=== PATIENT | male | born 1950 | race Caucasian/White ===

== ENCOUNTER → 2018-01-02 12:57 | Outpatient (CLI) | payer MEDICARE, SELFPAY ==
[2018-01-02 14:10] LABS: Prostate Specific Ag Screen 4.7 ng/mL (0.0-4.0)
== END ==
PROVIDERS: Visit Provider Urology
DX: Z12.5 Encounter for screening for malignant neoplasm of prostate (principal); R97.20 Elevated prostate specific antigen [PSA]
CPT/HCPCS: 36415; G0103

== ENCOUNTER → 2018-03-29 20:06 | Outpatient (CLI) | payer MEDICARE, MEDICAID, SELFPAY | PROVIDERS: PCP Nurse Practitioner Family; Visit Provider Specialist | DX: G47.30 Sleep apnea, unspecified (principal); I10 Essential (primary) hypertension; R40.0 Somnolence | CPT/HCPCS: 95810 ==

== ENCOUNTER → 2021-03-24 16:48 | Outpatient (CLI) | payer MEDICARE, MEDICAID, SELFPAY ==
[2021-03-24 17:51] LABS: Basophils # 0.1 K/mm3 (0-0.2); Basophils % 1.2 % (0.1-2.0); Eosinophils # 0.4 K/mm3 (0.0-0.4); Hematocrit 48.3 % (42.0-52.0); Hemoglobin 15.7 g/dL (14.1-18.0); Lymphocytes # 2.2 K/mm3 (0.7-4.5); Lymphocytes % 33.8 % (10-50); Mean Corpuscular HGB Conc 32.5 g/dL (31.8-35.4); Mean Corpuscular Hemoglobin 30.3 pg (27.0-31.2); Mean Corpuscular Volume 93.3 fl (80-94); Mean Platelet Volume 7.8 fl (7.4-10.4); Monocytes # 0.6 K/mm3 (0.1-1.0); Neutrophils # 3.2 K/mm3 (1.8-7.8); Platelet Count 351 K/mm3 (142-424); Red Blood Count 5.17 M/mm3 (4.60-6.20); Red Cell Distribution Width 13.2 % (11.5-17.5); White Blood Count 6.4 K/mm3 (4.8-10.8)
[2021-03-24 18:34] LABS: Alanine Aminotransferase 27 U/L (12-78); Albumin Level 4.4 g/dl (3.5-5.0); Albumin/Globulin Ratio 1.6 (1.1-1.8); Alkaline Phosphatase 68 U/L (38-126); Anion Gap 13.2 mEq/L (5-15); Aspartate Amino Transferase 32 U/L (17-59); Bilirubin,Total 0.6 mg/dl (0.2-1.3); Blood Urea Nitrogen 12 mg/dl (9-20); Calcium 9.6 mg/dl (8.4-10.2); Carbon Dioxide 29 mmol/L (22.0-30.0); Chloride 101 mmol/L (98-107); Chol/HDL Ratio 4.9 (1-3.5); Cholesterol 271 mg/dl (140-200); Estimated Glomerular Filt Rate 111 ml/min (>60); GFR (African American) 135 ML/MIN (>60); Globulin 2.7 g/dL (1.3-3.2); Glucose 94 mg/dl (74-100); HDL Cholesterol 55 mg/dl (40-60); Potassium 4.2 mmoL/L (3.5-5.1); Sodium 139 mmol/L (136-145); Total Protein,Serum 7.1 g/dl (6.3-8.2); Triglycerides 135 mg/dl (30-150); VLDL Cholesterol 27 mg/dL (0-40)
[2021-03-24 18:45] LABS: Direct LDL Cholesterol 189.83 mg/dL (100-129)
[2021-03-24 19:04] LABS: Prostate Specific Ag Screen 4.8 ng/ml (0.0-4.0); Thyroid Stimulating Hormone 0.85 uIU/mL (0.465-4.68)
== END ==
PROVIDERS: Visit Provider Nurse Practitioner Family
DX: I25.10 Atherosclerotic heart disease of native coronary artery without angina pectoris (principal); I10 Essential (primary) hypertension; E03.9 Hypothyroidism, unspecified; N40.0 Benign prostatic hyperplasia without lower urinary tract symptoms; Z12.5 Encounter for screening for malignant neoplasm of prostate
CPT/HCPCS: 80053; 80061; 84443; 85025; G0103

== ENCOUNTER 2022-05-04 10:25 | Day surgery (SDC) | payer MEDICARE, MEDICAID, SELFPAY ==
[2022-04-15 10:52] VITALS: BMI 21.7
[2022-05-04] VITALS (7 sets, daily range): BP systolic 91–145; BP diastolic 57–88; PULSE 56–80; RESP 16–18; TEMP 36.2–36.3; O2SAT 93–99
--- NOTE | 2022-05-04 12:17 | P.PN_ITS ---
[facility] Disclaimer: The information contained in this section may have been updated after the patient was seen, as this information can be updated by other users. Medical History Family history of coronary artery bypass graft surgery Hypothyroid Sleep apnea Surgical History Hx of tympanostomy Family History Other No significant family history Social History Smoking Status: Former smoker alcohol intake: never substance use type: denies use current occupational status: retired Travel in the last 8 weeks: None adopted: Yes foster care: No household members: none housing: house lives independently: Yes marital status: single education level: high school caffeine: Yes special vel needs: No agree to transfusion: No do you feel safe at home: Yes victim of physical abuse: No victim of emotional abuse: No victim of sexual abuse: No would you like helpful sources: No [facility] Anesthesia Checklist Patient Identification Patient Identification: Arm Band and Verbal (Name & ) Structural Data Admitted From: Home Planned Operative Procedure/s: EGD/Colonoscopy Consent for Planned Operative Procedure(s) Verified: Yes NPO Status Verified Time NPO: 00:00 Airway Assessment C-Spine Mobility Assessed: Yes TMJ Mobility Assessed: Yes Dentition: Edentulous Neurological Assessment Level of Consciousness: Awake Hx Seizures: No Numbness or tingling in extremities: No Anesthesia Plan Anesthesia Risk discussed: Yes Anesthesia Plan: Verified ASA Class: III Anesthesia Type: MAC
--- NOTE | 2022-05-04 12:47 | P.PCN_ITS ---
Procedure: Date: 05/04/22 Patient Date of :: 1950 Procedure Performed:: Colonoscopy Indications:: Screening colonoscopy. The patient also reports having had intermittent LLQ abdominal pain and burning sensations Performing Provider:: Filemon Harper MD Referring Provider:: Minda Cuellar APRN Sedation:: See RN notes Procedure:: After placing the patient in the left lateral decubitus position, the colon oscopy was gently inserted into the rectum and under direct visualization advanced to the cecum which was identified by transillumination in the right lower quadrant, identification of the ileocecal valve, appendiceal orifice, and cecal strap. Color, texture, mucosa, and anatomy of the colon were carefully examined with the scope. Findings:: Anal canal: normal Rectum: Internal hemorrhoids Sigmoid colon: normal without polyps or inflammatory changes Descending colon: normal without polyps or inflammatory changes Splenic flexure: normal Transverse colon: normal without polyps or inflammatory changes Hepatic flexure: normal Ascending colon: normal without polyps or inflammatory changes Cecum: normal Terminal ileum: not visualized Recommendations:: Repeat colonoscopy in 10 years or sooner if clinically indicated Complications:: none Estimated blood obtained (mL): 0
--- NOTE | 2022-05-04 12:49 | HMH.SCOPE ---
Procedure: Date: 05/04/22 Patient Date of :: 1950 Procedure Performed:: EGD Indications:: Abdominal pain Performing Provider:: Filemon Harper MD Referring Provider:: Minda Cuellar APRN Sedation:: See RN notes Procedure:: The gastroscope was gently passed through the incisoral orifice into the oral cavity and under direct visualization the esophagus was intubated. The endoscope was passed down the esophagus, through the stomach, and into the duodenum. Color, texture, mucosa, and anatomy of the esophagus, stomach, and duodenum were carefully examined with the scope. Findings:: Oropharynx: normal Esophagus: Wide tongue of salmon colored mucosa distal esophagus 1.5 cm in size. Biopsies obtained EG Junction: intact at 40 cm Cardia: Small hiatal hernia Fundus: normal Body: Gastritis. Biopsies obtained Antrum: Gastritis. 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
== END 2022-05-04 13:50 | disposition home or self-care (01) ==
PROVIDERS: PCP Nurse Practitioner Family; Visit Provider Internal Medicine
PROC: 0DJ08ZZ Inspection of Upper Intestinal Tract, Via Natural or Artificial Opening Endoscopic (ICD-10-PCS; CPT 43235; principal; 2022-05-04 11:30)
DX: R10.11 Right upper quadrant pain (principal); K29.70 Gastritis, unspecified, without bleeding; K44.9 Diaphragmatic hernia without obstruction or gangrene; Z79.899 Other long term (current) drug therapy
CPT/HCPCS: 43239; 45378; 88305; 88342; J2704

== ENCOUNTER → 2022-05-23 10:12 | Outpatient (CLI) | payer MEDICARE, MEDICAID, SELFPAY ==
--- NOTE | 2022-05-23 10:18 | CT_ITS ---
PROCEDURE INFORMATION: Exam: CT Abdomen And Pelvis Without Contrast Exam date and time: 05/23/2022 10:19 AM Age: 71 years old Clinical indication: Other: Hematuria; Additional info: Hematuria- groin pain- diagnosed as hernia TECHNIQUE: Imaging protocol: Computed tomography of the abdomen and pelvis without contrast. Radiation optimization: All CT scans at this facility use at least one of these dose optimization techniques: automated exposure control; mA and/or kV adjustment per patient size (includes targeted exams where dose is matched to clinical indication); or iterative reconstruction. COMPARISON: No relevant prior studies available. FINDINGS: Lungs: Punctate granuloma noted in right lower lobe. Liver: Subcentimeter hypodensity in the liver dome is incompletely evaluated. Gallbladder and bile ducts: No biliary ductal dilation. Gallbladder normal Pancreas: No peripancreatic fluid stranding. No main pancreatic ductal dilation. Spleen: No splenomegaly. Adrenal glands: The adrenal glands are normal. Kidneys and ureters: There are multiple renal calculi conforming the renal pelvis morphology. There is moderate right hydroureteronephrosis proximal to an 8 x 15 x 9 mm (AP x TRV x SI) calculus in the renal pelvis. there is a 1.5 cm right renal cyst Stomach and bowel: Scattered colonic diverticula without acute inflammatory change. Appendix: A normal appendix is identified. Intraperitoneal space: There is no evidence of free intraperitoneal or pelvic fluid. There is no evidence of free intraperitoneal or pelvic fluid. Vasculature: The aorta demonstrates mild atherosclerotic calcification. Aorta is nonaneurysmal. Lymph nodes: No evidence of retroperitoneal or mesenteric lymphadenopathy. Urinary bladder: Urinary bladder is unremarkable. Reproductive: Prostatomegaly noted Bones/joints: no acute osseous abnormality Soft tissues: Unremarkable. IMPRESSION: 1. There is moderate right hydroureteronephrosis proximal to an 8 x 15 x 9 mm (AP x TRV x SI) calculus in the renal pelvis. 2. There are multiple bilateral renal calculi conforming the renal pelvis morphology. COMMENTS: Consistent with the [employer]'s Incidental Findings Committee white paper (J Am Harrison Radiol 2018): Any incidental renal lesion less than 1 cm or classified as too small to characterize, or any incidental cystic renal lesion characterized as simple-appearing, is likely benign. No follow-up imaging is recommended for these lesions per consensus recommendations based on imaging criteria.
== END ==
PROVIDERS: PCP Nurse Practitioner Family; Visit Provider Registered Nurse
DX: R31.29 Other microscopic hematuria (principal)
CPT/HCPCS: 74176

== ENCOUNTER → 2022-09-12 07:15 | Outpatient (CLI) | payer MEDICARE, MEDICAID, SELFPAY ==
--- NOTE | 2022-09-12 07:15 | US_ITS ---
FINAL REPORT CLINICAL HISTORY: RUQ pain FINDINGS: Ultrasound images of the right upper quadrant were obtained. The pancreas is obscured. The liver parenchyma is normal in echogenicity. The gallbladder is well visualized and the wall appears normal. There are no gallstones. The common duct is normal. Limited images of the right kidney demonstrate a right renal cyst measuring up to 1.7 cm in the superior pole. IMPRESSION: Right renal cyst. Reviewed, Interpreted and Dictated by Carlos Velasco III, MD Transcribed by Nestor Fisher Authenticated and [facility]
== END ==
PROVIDERS: PCP Nurse Practitioner Family; Visit Provider Surgery
DX: R10.11 Right upper quadrant pain (principal)
CPT/HCPCS: 76705

== ENCOUNTER → 2022-10-21 06:16 | Outpatient (CLI) | payer MEDICARE, MEDICAID, SELFPAY ==
--- NOTE | 2022-10-21 06:16 | CA_ITS ---
APPROVED REPORT Exam: Pharmacologic Technologist: Cleo Sanchez, Ht: 5 ft 8 in Wt: 142 lbs BSA: 1.77 m2 Rhythm: NSR, RBBB Medical History Medications: Amlodipine,,,,, Levothyroxine,,,,, Aspirin,,,,, TAMSULOSIN,,,,, Vit B12,,,,, Losartan-Hydrochlorothiazide,,,,, Stress Test Details Test: LEXISCAN HR Resting HR: 64 bpm Max Heart Rate (APMHR): 149 bpm Max HR Achieved: 100 bpm Target HR (85% APMHR): 127 bpm % of APMHR: 67 BP Resting BP: 141/76 mmHg Max BP: 152/80 mmHg ECG Resting ECG: NSR, RBBB Stress ECG: No change Recovery ECG: No change Clinical Exercise duration: 04:08 min Highest Stage Achieved: Exercise capacity: n/a METs Stress ECG Conclusion NON DIAGNOSTIC ECG STRESS TEST DUE TO BASELINE ABNORMALITIES IN THE SETTING OF RBBB Test Summary REST . . . . . . . Resting REST 23:50 . . 64 . 141/ 76 . . Stage 1 01:00 . . 86 . . . . Stage 2 01:00 . . 100 . 125/ 65 . . Stage 3 01:00 . . 91 . 132/ 67 . . Stage 4 01:00 . . 90 . 134/ 68 . . Stage 4 01:08 . . 91 . 134/ 68 . Stop exercise at 04:08 RECOVERY 01:00 . . 93 . . . . RECOVERY 02:00 . . 96 . 142/ 77 . . RECOVERY 03:00 . . 92 . 147/ 78 . . RECOVERY 03:50 . . 84 . 152/ 80 . . Electronically signed by : Fernanda Quiros, 10/24/2022 01:24:02
--- NOTE | 2022-10-21 06:16 | NM_ITS ---
APPROVED REPORT Exam: Nuclear Stress Test Indication: fatigue..pre-op..hyperyension Patient Location: Outpatient Stress Tech: Cleo Price [place] Tech:Divya Lopez TAMARSandra RT(R)(N) Ht: 5 ft 8 in Wt: 139 lbs HR: 64 bpm BP: 141/76 mmHg BSA: 1.75 m2 TID: 1.11 BMI: 21.1 History: fatigue..pre-op..hypertension Procedure: Patient received 0.0 mg of intravenous Lexiscan, resting heart rate 64 bpm, resting blood pressure 171/76 mmHg, with Lexiscan maximum heart rate achieved was 100 bpm which is 85 % of the maximum predicted heart rate and blood pressure was 152/80 mmHg. With Lexiscan, patient denied any complaint of chest pain. Cardiac Stress and Resting SPECT Images: Cardiac Stress and Resting SPECT images were obtained using technetium 99m Myoview 30.5 mCi stress and 10.07 mCi at rest. Resting and stress imaging in supine position demonstrate a medium-sized, moderate, partially reversible perfusion defect in the mid to distal anterior and anteroapical LV wall. There is also a medium-sized, moderate, fixed defect in the inferior wall. With prone imaging, the anterior and anteroapical perfusion defects are still present, but the inferior perfusion defect is no longer visualized. Gated imaging demonstrate a mildly reduced global LV systolic function. There is moderate hypokinesis of the mid to distal anterior LV wall. LVEF is calculated at 49%. Conclusion: Diaphragmatic attenuation is present. Partially reversible perfusion defect in the mid to distal anterior and anteroapical LV wall, consistent with a prior infarct with a region of reversible ischemia. Gated imaging demonstrate a mildly reduced global LV systolic function. There is moderate hypokinesis of the mid to distal anterior LV wall. LVEF is calculated at 49%. Electronically signed by : Fernanda Quiros, 10/21/2022 18:46:25
== END ==
PROVIDERS: PCP Nurse Practitioner Family; Visit Provider Nurse Practitioner
DX: E78.5 Hyperlipidemia, unspecified (principal); I11.9 Hypertensive heart disease without heart failure; I25.10 Atherosclerotic heart disease of native coronary artery without angina pectoris; R94.31 Abnormal electrocardiogram [ECG] [EKG]; Z01.810 Encounter for preprocedural cardiovascular examination; Z95.1 Presence of aortocoronary bypass graft; I42.8 Other cardiomyopathies
CPT/HCPCS: 78452; 93017; 93306; A9502; J2785

== ENCOUNTER 2022-11-14 07:54 | Day surgery (SDC) | payer MEDICARE, MEDICAID, SELFPAY ==
[2022-11-14] VITALS (21 sets, daily range): BP systolic 110–149; BP diastolic 60–86; PULSE 58–89; RESP 14–18; TEMP 36.2–36.9; O2SAT 92–98; BMI 21.9
--- NOTE | 2022-11-14 07:21 | IR_ITS ---
APPROVED REPORT Patient Location: Outpatient PROCEDURES Left heart catheterization Left ventriculogram Selective coronary angiogram Selective engage the left internal mammary artery with angiography INDICATION Coronary artery disease, History of coronary bypass surgery, Abnormal stress test, Preoperative evaluation Informed consent was obtained prior to the procedure. COMPLICATIONS None Estimated Blood Loss: Less than 10 mls TECHNIQUE One percent lidocaine used to anesthetize the right groin. The right femoral artery was accessed via the Seldinger technique and a 5 Korean sheath was placed in the right femoral artery. A JL 4, JR4 catheter were used to perform left heart catheterization, left ventriculogram selective coronary angiography as well as selective engagement of the left internal mammary artery. At the end of the procedure the patient was transferred to the postop holding area in stable condition for sheath removal. ANGIOGRAPHIC RESULTS The left main artery Has a mid vessel 10 to 20% stenosis The left anterior descending artery Proximally occluded The circumflex artery Nondominant with a proximal 50 to 60% stenosis and a blood vessel no larger than 2 mm in diameter The right coronary artery Large dominant with proximal and mid vessel diffuse 50% stenoses with distal 30% stenoses The COOPER ventriculogram reveals Preserved 60% The left ventricular end-diastolic pressure 10 mmHg Widely patent LAMAR to LAD IMPRESSION Moderate coronary artery disease as described above accompanied by preserved ejection fraction with normal LVEDP and widely patent LMAAR graft to widely patent LAD PLAN 1. Patient is alone acceptable risk to proceed with elective herniorrhaphy 2. LDL less than 55 to be achieved with high intensity statin 3. Aggressive risk factor modification 4. Daily aspirin Electronically signed by : Wellington Correia MD 11/14/2022 09:37:21
[2022-11-14 08:42] LABS: Basophils # 0.1 K/mm3 (0-0.2); Basophils % 0.9 % (0.1-2.0); Eosinophils # 0.5 K/mm3 (0.0-0.4); Eosinophils % 7.3 % (0.1-12.0); Hematocrit 48.5 % (42.0-52.0); Hemoglobin 15.4 g/dL (14.1-18.0); Lymphocytes # 2.1 K/mm3 (0.7-4.5); Lymphocytes % 28.3 % (10-50); Mean Corpuscular HGB Conc 31.7 g/dL (31.8-35.4); Mean Corpuscular Hemoglobin 29.2 pg (27.0-31.2); Mean Corpuscular Volume 92.3 fl (80-94); Mean Platelet Volume 7.4 fl (7.4-10.4); Monocytes # 0.6 K/mm3 (0.1-1.0); Monocytes % 8.2 % (1.7-9.3); Neutrophils # 4.1 K/mm3 (1.8-7.8); Neutrophils % 55.3 % (37.0-80.0); Platelet Count 272 K/mm3 (142-424); Red Blood Count 5.25 M/mm3 (4.60-6.20); Red Cell Distribution Width 13.7 % (11.5-17.5); White Blood Count 7.4 K/mm3 (4.8-10.8)
[2022-11-14 08:48] LABS: Chloride 100 mmol/L (98-107); Sodium 140 mmol/L (136-145)
[2022-11-14 08:49] LABS: Potassium 3.7 mmoL/L (3.5-5.1)
[2022-11-14 08:51] LABS: Blood Urea Nitrogen 13 mg/dl (9-20); Creatinine Clearance Estimated 62 mL/min (50-200); Estimated Glomerular Filt Rate 95 ml/min (>60); GFR (African American) 115 ML/MIN (>60)
[2022-11-14 08:52] LABS: Anion Gap 12.7 mEq/L (5-15); Calcium 9.4 mg/dl (8.4-10.2); Carbon Dioxide 31 mmol/L (22.0-30.0); Glucose 96 mg/dl (74-100)
--- NOTE | 2022-11-14 14:30 | SUR.PHASEII ---
[id number]- received report from Elias Clark RN about patient and procedure. Was informed that the patient was brought to the hospital via [employer]. There was no family member or friend with the patient to ride back with him or sign him out. Received report that the transportation bus would sign them out. 1300-Provided patient with discharge information at this time. Patient was wheeled out to transportation vehicle by this RN and asked the public transit trolley driver to sign him out. Assistant [employer] Track Coach said they could not legally sign him out because they were not responsible for the patient once they got home. home performance laborer was then informed of this and they said to get two nurse signatures on the discharge instructions and the patient could leave. Tessie Mcmillan RN was then informed of the situation. Dorothea Darling was informed as well and suggested to admit the patient for observation. The patient was informed of this option and refused to be admitted. He stated that he needed to get home to his animals and could not stay here. Patient stated that he had no family close to him to come get him and take him home. The patient then phoned a neighbor who agreed to come check on him multiple times for the rest of the day. This RN then spoke with the neighbor, Panchito, who voiced that he would check on the patient multiple times for the rest of the day and help with his animals. A decision was made with Tessie Mcmillan RN, Dorothea Darling, and this RN, that the patient could sign his own discharge instructions and also sign the AMA paper which stated that he was leaving the hospital with understanding of the procedure and responsibility of follow-up care. 0202- Discharge instructions were gone over once again with the patient to ensure that he had a good understanding of the instructions. He voiced his understanding. Patient was wheeled back out to the transportation vehicle and was released with the public transit trolley driver at this time.
== END 2022-11-14 13:49 | disposition home or self-care (01) ==
PROVIDERS: PCP Nurse Practitioner Family; Visit Provider Internal Medicine
DX: I25.10 Atherosclerotic heart disease of native coronary artery without angina pectoris (principal); E03.9 Hypothyroidism, unspecified; G47.30 Sleep apnea, unspecified
CPT/HCPCS: 80048; 85025; 93454; 99152; C1725; C1769; C1894; J1644; Q9967

== ENCOUNTER → 2023-02-14 11:26 | Outpatient (CLI) | payer MEDICARE, MEDICAID, SELFPAY ==
[2023-02-14 11:34] LABS: Microscopic, Urine URINE MICROSCOPIC (MICROSCOPIC)
[2023-02-14 11:54] LABS: Appearance,Urine CLEAR (Clear); Bilirubin,Urine Negative (Negative); Blood, Urine Negative (Negative); Color,Urine YELLOW (Yellow); Glucose,Urine (UA) Negative (Negative); Ketones,Urine Negative (Negative); Leukocyte Esterase,Urine Negative (Negative); Nitrate,Urine Negative (Negative); PH,Urine 8.5 (5.0-8.5); Protein,Urine Negative (Negative); Specific Gravity, Urine 1.015 (1.005-1.030); Urobilinogen,Urine 0.2 EU/dl (0.2)
[2023-02-14 12:02] LABS: Basophils # 0.1 K/mm3 (0-0.2); Basophils % 0.8 % (0.1-2.0); Eosinophils # 0.3 K/mm3 (0.0-0.4); Eosinophils % 4.3 % (0.1-12.0); Hematocrit 50.1 % (42.0-52.0); Hemoglobin 16.2 g/dL (14.1-18.0); Lymphocytes # 1.7 K/mm3 (0.7-4.5); Lymphocytes % 25.1 % (10-50); Mean Corpuscular HGB Conc 32.4 g/dL (31.8-35.4); Mean Corpuscular Hemoglobin 29.8 pg (27.0-31.2); Mean Corpuscular Volume 91.9 fl (80-94); Mean Platelet Volume 7.2 fl (7.4-10.4); Monocytes # 0.6 K/mm3 (0.1-1.0); Neutrophils % 60.8 % (37.0-80.0); Platelet Count 292 K/mm3 (142-424); Red Blood Count 5.45 M/mm3 (4.60-6.20); Red Cell Distribution Width 13.2 % (11.5-17.5); White Blood Count 6.7 K/mm3 (4.8-10.8)
[2023-02-14 12:13] LABS: Squamous Epithelial Cell,Urine Occasional #/hpf (0-5); WBC,Urine Occasional #/hpf (0-3)
[2023-02-14 13:54] LABS: Anion Gap 14.2 mEq/L (5-15); Blood Urea Nitrogen 14 mg/dl (9-20); Calcium 9.6 mg/dl (8.4-10.2); Carbon Dioxide 31 mmol/L (22.0-30.0); Chloride 99 mmol/L (98-107); Estimated Glomerular Filt Rate 95 ml/min (>60); GFR (African American) 115 ML/MIN (>60); Glucose 96 mg/dl (74-100); Potassium 4.2 mmoL/L (3.5-5.1); Sodium 140 mmol/L (136-145)
== END ==
PROVIDERS: PCP Nurse Practitioner Family; Visit Provider Surgery
DX: E78.5 Hyperlipidemia, unspecified (principal); K40.90 Unilateral inguinal hernia, without obstruction or gangrene, not specified as recurrent
CPT/HCPCS: 36415; 80048; 81001; 85025

== ENCOUNTER 2023-02-20 06:08 | Day surgery (SDC) | payer MEDICARE, MEDICAID, SELFPAY ==
[2023-02-16 13:01] VITALS: BMI 21.6
[2023-02-20] VITALS (14 sets, daily range): BP systolic 96–138; BP diastolic 57–85; PULSE 66–87; RESP 12–18; TEMP 36.2–43; O2SAT 92–98
--- NOTE | 2023-02-20 07:18 | EXP.ANES.CKL ---
[facility] Disclaimer: The information contained in this section may have been updated after the patient was seen, as this information can be updated by other users. Medical History Abnormal electrocardiogram [ECG] [EKG] Coronary artery disease Encounter for pre-operative cardiovascular clearance Family history of coronary artery bypass graft surgery Hypothyroid Migraine Osteoarthritis Sleep apnea Surgical History History of heart bypass surgery Hx of tympanostomy Family History Other No significant family history Social History (Updated 02/20/23 @ 06:45 by Love Reynolds RN) Smoking Status: Former smoker alcohol intake: never substance use type: denies use current occupational status: retired Travel in the last 8 weeks: None adopted: Yes foster care: No household members: none housing: house lives independently: Yes marital status: single education level: high school caffeine: Yes special vel needs: No agree to transfusion: No do you feel safe at home: Yes victim of physical abuse: No victim of emotional abuse: No victim of sexual abuse: No would you like helpful sources: No [facility] Anesthesia Checklist Patient Identification Patient Identification: Arm Band Structural Data Admitted From: Home Planned Operative Procedure/s: Bilateral Laparoscopic Inguinal Hernia Repair Consent for Planned Operative Procedure(s) Verified: Yes Verified Documents: Surgical Consent, History and Physical and Cardiac Clearance NPO Status Verified Time NPO: 00:00 Additional verifications Anesthesia Reactions: No Hx Blood Transfusions: No Blood Transfusion Reaction: No Airway Assessment Mallampati Score:: Class II C-Spine Mobility Assessed: Yes TMJ Mobility Assessed: Yes Dentition: Good Dentition Neurological Assessment Level of Consciousness: Awake and Alert Anesthesia Plan Anesthesia Risk discussed: Yes Anesthesia Plan: Verified ASA Class: III Anesthesia Type: General
--- NOTE | 2023-02-20 09:27 | EXP.OP.NOTE ---
Date of procedure: 02/20/23 Pre-op Diagnosis:: Bilateral inguinal hernias Post-op Diagnosis:: Same Procedure performed:: Laparoscopic bilateral inguinal hernia repair (TEPP) with placement of large sized Bard 3D max mesh bilaterally Surgeon:: Carlos Hernandez MD Anesthesia: EAMON Estimated blood loss (mL): 15 Clinical Note:: Patient presents for hernia repair. Patient is a 72-year-old male from [place] with history of hyperlipidemia, cardiomyopathy, coronary disease, hypertension, obstructive sleep apnea, previous coronary artery bypass grafting referred by Minda Cuellar for left inguinal hernia. Patient states that he has had a swelling in the left groin area since March. However, he had some issues with kidney stones for which she required what sounds like lithotripsy and stent. He has had to wear a hernia supporting belt. When he is not wearing this in the evening he has protrusion and burning pain. Interestingly, the patient also states that he has had epigastric pain occurring postprandially. This has persisted. He underwent EGD and colonoscopy with Dr. Harper. He underwent gallbladder ultrasound which was negative for gallstones. On examination he had a left inguinal hernia. Given his history I had him undergo cardiology risk assessment and evaluation. He ultimately did undergo cardiac catheterization and has been cleared for surgery. Patient states that about 18 days after his cardiac catheterization he had developed some burning in the right groin area which was similar to what he had in the left side. He did have some relatively extensive bruising initially from right femoral artery catheterization. Patient had wished to wait until February for hernia repair due to the fact that he often has significant seasonal allergies. He actually was noted to have bilateral inguinal hernias with the right side being smaller than the left. Given the bilateral nature plan was made for attempt at laparoscopic bilateral inguinal hernia repair with concentration on the left side. Operative findings:: He had a moderately large indirect left inguinal hernia with hernia sac as well as an additional significant cord lipoma. On the right side there was moderate direct hernia. Operative note:: Consent was obtained patient was taken to the operating room. He was given preoperative intravenous antibiotics. In the operating room he was placed in a supine position. General anesthesia was induced. Hunt catheter was placed. Abdomen and perineal area were prepped and draped in the standard surgical fashion. Subumbilical skin incision was made. Dissection was carried down to the anterior rectus fascia. Initially exposure of the rectus fascia was somewhat difficult. It was incised to the left of the linea alba. Rectus muscles were retracted laterally. Preperitoneal space was ultimately entered. Dissecting balloon trocar was inserted and it was inflated. Preperitoneal space was dissected free under laparoscopic visualization. Dissecting balloon trocar was then replaced with the structural balloon trocar and CO2 pneumo preperitoneum was achieved to 15 mmHg. A couple of 5 mm trocars were inserted in the midline inferior to the umbilicus. Dissection was carried out initially of the left inguinal area. Ralf's ligament and pubis were identified initially. The inferior epigastric vessels were identified as were the cord structures and iliac vessels. Dissection was carried out of the cord bluntly dissecting it free from surrounding structures. Appreciable hernia sac was identified. This was dissected free from the cord and returned to the peritoneal cavity. Further dissection was carried out noting significant preperitoneal fat herniation as a cord lipoma. This was dissected free and reduced as well. Dissection was carried out laterally in the preperitoneal space to allow for mesh placement. There were a few branching vessels from the muscle to the perit
--- NOTE | 2023-02-20 09:31 | EXP.ANES.I ---
[facility] Anesthesia Record Part I Anesthesia Record I Intake, IV Amount: 1,500 Hydration: Adequate Estimated blood loss (mL): 15 Urine output (mL): 900 Blood Pressure: 119/58 SaO2: 98 Pulse Rate: 86 Airway Patency: Patent Respiratory Rate: 14 Temperature: 97.3 F Patient is:: Drowsy and Oral/Nasal airway Stable to PACU at:: 09:25
--- NOTE | 2023-02-20 11:08 | P.PNANES_ITS ---
[facility] Anesthesia Record Part II Anesthesia Record Part II Discharge Time: 09:55 Destination: Surgical Day Care (OP Surgery) PACU nurse assessment reviewed?: Yes Patient Condition:: Good Anesthesia Complications:: None Swallowing reflex intact?: Yes Airway Patency: Patent Cyanosis?: No Blood Pressure: 104/58 SaO2: 95 Respiratory Rate: 14 Pulse Rate: 83 Temperature: 97.3 F Mental Status: Alert & Oriented Pain level:: 0 Nausea and/or vomitting:: None Intake, IV Amount: 0 Hydration: Adequate
[2023-02-20 15:21] LABS: Microscopic,Cath URINE MICROSCOPIC (MICROSCOPIC)
[2023-02-20 15:44] LABS: Appearance,Urine/Cath CLEAR (Clear); Bilirubin,Cath Negative (Negative); Blood, Urine/Cath 3+ (Negative); Color,Urine/Cath YELLOW (Yellow); Glucose,Urine/Cath (UA) Negative (Negative); Ketones,Urine/Cath Negative (Negative); Leukocyte Esterase,Cath Negative (Negative); Nitrate,Cath Negative (Negative); PH,Urine/Cath 8.5 (5.0-8.5); Protein,Urine/Cath Negative (Negative); Specific Gravity, Urine/Cath 1.015 (1.005-1.030); Urobilinogen,Cath 0.2 EU/dl (0.2)
[2023-02-20 16:08] LABS: RBC,Urine/Cath 20-50 # /hpf (0-3); WBC,Urine/Cath Occasional #/hpf (0-3)
== END 2023-02-20 10:55 | disposition home or self-care (01) ==
PROVIDERS: PCP Nurse Practitioner Family; Visit Provider Surgery
PROC: (CPT 49650; principal; 2023-02-20 07:30)
DX: K40.20 Bilateral inguinal hernia, without obstruction or gangrene, not specified as recurrent (principal)
CPT/HCPCS: 49650; 81001; 96374; C1781; J2405

== ENCOUNTER 2024-07-26 09:01 | Outpatient (CLI) | payer MEDICARE, MEDICAID, SELFPAY ==
[2024-07-26 09:55] LABS: Basophils % 0.6 % (0.1-2.0); Eosinophils # 0.2 K/mm3 (0.0-0.4); Eosinophils % 3.1 % (0.1-12.0); Hematocrit 42.8 % (42.0-52.0); Hemoglobin 14.6 g/dL (14.1-18.0); Lymphocytes % 29.8 % (10-50); Mean Corpuscular HGB Conc 34.1 g/dL (31.8-35.4); Mean Corpuscular Hemoglobin 29.7 pg (27.0-31.2); Mean Corpuscular Volume 87.2 fl (80-94); Monocytes # 0.7 K/mm3 (0.1-1.0); Neutrophils # 3.8 K/mm3 (1.8-7.8); Neutrophils % 56.2 % (37.0-80.0); Platelet Count 289 K/mm3 (142-424); Red Blood Count 4.91 M/mm3 (4.60-6.20); Red Cell Distribution Width 13.5 % (11.5-17.5); White Blood Count 6.7 K/mm3 (4.8-10.8)
--- NOTE | 2024-07-26 10:15 | PC.NURSE ---
Determined at pt's PAT appointment per Dariel Mobley and Dr. Hernandez that he would need cardiac clearance proir to procedure. Office notified and case placed on hold. Appt scheduled for clearance on 07/31 @ 0845. Pt notified and verbalized understanding. VM left for BJ in Dr. Hernandez's office notifying of POC.
[2024-07-26 10:55] LABS: Anion Gap 9.6 mEq/L (5-15); Blood Urea Nitrogen 17 mg/dl (9-20); Calcium 9.3 mg/dl (8.4-10.2); Carbon Dioxide 32 mmol/L (22.0-30.0); Chloride 100 mmol/L (98-107); Estimated Glomerular Filt Rate 95 ml/min (>60); GFR (African American) 115 ML/MIN (>60); Glucose 102 mg/dl (74-100); Potassium 3.6 mmoL/L (3.5-5.1); Sodium 138 mmol/L (136-145)
== END 2024-07-26 23:59 | disposition home or self-care (01) ==
LOC: PREOP 09:02
PROVIDERS: PCP Nurse Practitioner Family; Visit Provider Surgery
DX: L72.3 Sebaceous cyst (principal)
CPT/HCPCS: 80048; 85025

== ENCOUNTER 2024-08-09 09:29 | Outpatient (CLI) | payer MEDICARE, MEDICAID, SELFPAY ==
--- NOTE | 2024-08-09 09:38 | CA_ITS ---
APPROVED REPORT EXAM: Comprehensive 2D, Doppler, and color-flow Echocardiogram Gear Nicker: Essence Almodovar CRT Ht: 5 ft 8 in Wt: 156lbs BSA: 1.84 BP: 171/79 mmHg Indications: PRE-OP cyst removal of abdomen(apical imaging area) CAD,CABG, HTN, HLD,HF EF 55-60% 11/11 2D Dimensions LA Volume 36.10 mL LA Volume Index 19.20 mL/m2 (M/F) 16-34 M-Mode Dimensions RVDd 3.23 cm (0.9-2.6) LA Diam 3.69 cm (1.9-4.0) LVDd 4.60 cm (3.5-5.7) LVDs 3.16 cm (3.5-5.7) IVSd 1.63 cm (0.6-1.1) PWd 1.14 cm (0.6-1.1) EF (Teich) 59.20% FS 31.30% EDV (Teich) 97.30 mL TAPSE 1.29 (<1.7) ESV (Teich) 39.70 mL LV Diastology E Decel Time 240 (160-240 msec) E/A Ratio 0.82 MED A' 9.60 cm/s LAT A' 8.60 cm/s Aortic Valve AI PHT 695.00 ms AO Peak GR. 3.80 mmHg Mitral Valve MV A Velocity 76.0 (40-130 cm/s) E/A Ratio 0.82 Pulmonary Valve PV Peak Velocity 75.0 (50-150 cm/s) Tricuspid Valve TR P. Velocity 249.00 cm/s RAP Estimate 10.00 mmHg RVSP 34.80 mmHg Left Ventricle The left ventricle is normal size. The left ventricular systolic function is normal. The left ventricular ejection fraction is within the normal range. There is increased LV wall thickness. There is normal LV segmental wall motion. The left ventricular diastolic function is normal. LVEF is 60%. Right Ventricle The right ventricle is normal size. The right ventricular systolic function is normal. Atria The left atrium size is normal. The right atrium size is normal. There is no Doppler evidence of interatrial shunt. Aortic Valve Aortic valve is mildly thickened. Mild aortic regurgitation. There is no aortic valvular stenosis. Mitral Valve The mitral valve leaflets are mildly thickened. Trace mitral regurgitation. No evidence of mitral valve stenosis. Tricuspid Valve Tricuspid valve is grossly normal in structure and function. Mild tricuspid regurgitation. RVSP is 25-30 mmHg. Pulmonic Valve The pulmonary valve is normal in structure. Trace pulmonic regurgitation. Great Vessels The aortic root is normal in size. IVC is normal in size and collapses >50% with inspiration. Pericardium There is no pericardial effusion. Other Information Study Quality: Fair Conclusion Normal biventricular systolic function. Mild AI, mild TR. Electronically signed by : Fernanda Quiros MD 08/10/2024 19:47:25
== END 2024-08-09 23:59 | disposition home or self-care (01) ==
LOC: RT 09:30
PROVIDERS: PCP Nurse Practitioner Family; Visit Provider Nurse Practitioner Family
DX: Z01.810 Encounter for preprocedural cardiovascular examination (principal); I35.1 Nonrheumatic aortic (valve) insufficiency; I36.1 Nonrheumatic tricuspid (valve) insufficiency; I25.810 Atherosclerosis of coronary artery bypass graft(s) without angina pectoris
CPT/HCPCS: 93306

== ENCOUNTER 2024-12-03 11:00 | Inpatient (IN) | payer MEDICARE, MEDICAID, SELFPAY ==
[2024-12-03] VITALS (9 sets, daily range): BP systolic 150–204; BP diastolic 71–104; PULSE 40–97; RESP 12–18; TEMP 36.5–37.2; O2SAT 95–98; BMI 23.6; BMI 24.0
--- NOTE | 2024-12-03 11:03 | ECG_ITS ---
APPROVED REPORT Exam: Resting ECG HR:47 bpm ECG Measurements Heart Rate 47 AXES TX 184 P 49 QRSd 142 QRS -32 QT 496 T 117 QTc 459 Conclusion Sinus bradycardia, right bundle branch block, scooped T wave in lead III, deep T wave inversions in V2, V5, no acute ST or T wave changes concerning for ischemia, no EKG for comparison Electronically signed by : Alina Sauer, 12/04/2024 07:12:46
--- NOTE | 2024-12-03 11:13 | PC.NURSE ---
call made to labor employment associate to let staff know to let dr conner know that pt is here
[2024-12-03 11:14] LABS: Hematocrit 44.7 % (42.0-52.0); Hemoglobin 15.2 g/dL (14.1-18.0); Mean Corpuscular Volume 87.3 fl (80-94); Red Blood Count 5.12 M/mm3 (4.60-6.20); White Blood Count 7.0 K/mm3 (4.8-10.8)
--- OUTSIDE RECORDS SUMMARY | 2024-12-03 11:14 | XMS_ITS | Clinical Summary ---
Author Organization Healthcare Address [address] [id number] Care Team Providers Care Merchant Mariner Name Role Phone Ugo Walker MD Primary Care Provider [phone] Family History Medical History Relation Name Comments Conversions - Other Father Family h istory unknown Conversions - Other Mother Family h istory unknown Relation Name Status Comments Father Mother Social History Tobacco Use Types Packs/Day Years Used Date Smoking Tobacco: Former Smokeless Tobacco: Current Alcohol Use Standard Drinks/Week Comments No 0 (1 standard drink = 0.6 oz pur e alcohol) Sex and Gender Information Value Date Recorded Sex Assigned at Not on file Legal Sex Male 6:27 PM EDT Gender Identity Not on file Sexual Orientation Not on file Last Filed Vital Signs Vital Sign Reading Time Taken Comments Blood Pressure 149/81 10/21/2022 9:16 AM EDT Pulse - - Temperature - - Respiratory Rate - - Oxygen Saturation - - Inhaled Oxygen Concentration - - Weight 64.4 kg (142 lb) 10/21/2022 9:16 AM EDT Height 172.7 cm (5' 8 ) 10/21/2022 9:16 AM EDT Body Mass Index 21.59 10/21/2022 9:16 AM EDT Plan of Treatment Health Maintenance Due Date Last Done Comments [facility]-Depression Screening 1950 [facility]-Hepatitis C Screening 1950 [facility]-Medicare Annual Wellness (AWV) 1950 [facility]-Infant/Child/Adol SDOH Screenings 1950 [facility]- SDOH Screenings 1968 [facility]-Adult SDOH Screenings 1968 CT Colonography 11/10/1995 Colonoscopy 11/10/1995 FIT-DNA 11/10/1995 FIT 11/10/1995 FOBT 11/10/1995 Sigmoidoscopy 11/10/1995 [facility]-Colorectal Cancer Screening 11/10/1995 [facility]-Pneumococcal Vaccine: 50 + Years (1 of 1 - PCV) 2000 [facility]-Zoster Vaccines (1 of 2) 2000 [facility]-DTaP,Tdap,and Td Vaccine s (1 - Tdap) 12/29/2018 12/28/2018 [id number] Vaccine (2 - 20 24-25 season) 2024 07/29/2020 [facility]-Influenza Vaccine (#1) 2025 [facility]-RSV Vaccine: 60+ Years o r (1 - 1-dose 75+ series) 2025 HPV Vaccines Aged Out No longer eligi ble based on patient's age to complete this topic [facility]-HIB Vaccines Aged Out No longer e ligible based on patient's age to complete this topic [facility]-Hepatitis A Vaccines Aged Out No longer eligible based on patient's age to complete this topic [facility]-IPV Vaccines Aged Out No longer e ligible based on patient's age to complete this topic [facility]-Rotavirus Vaccines Aged Out No lo nger eligible based on patient's age to complete this topic Insurance MEDICAID[place] MEDICARE Care Teams Merchant Mariner Relationship Specialty Start Date End Date Ugo Walker MD [address] [place] [address] PCP - General 10/02/20
[2024-12-03 11:15] LABS: Immature Granulocytes % 0.3 %; Mean Corpuscular HGB Conc 34.0 g/dL (31.8-35.4); Mean Corpuscular Hemoglobin 29.7 pg (27.0-31.2); Nucleated Red Blood Cells % 0 %; Platelet Count 242 K/mm3 (142-424); Red Cell Distribution Width-SD 43.3 fL
[2024-12-03 11:23] LABS: INR 0.99 (0.9-1.1); Prothrombin Time 11.0 seconds (10.1-12.5)
[2024-12-03 11:33] LABS: Albumin Level 4.1 g/dl (3.5-5.0); Chloride 98 mmol/L (98-107); Potassium 3.4 mmoL/L (3.5-5.1); Sodium 139 mmol/L (136-145)
[2024-12-03 11:36] LABS: Alanine Aminotransferase 25 U/L (12-78); Albumin/Globulin Ratio 1.6 (1.1-1.8); Alkaline Phosphatase 66 U/L (38-126); Anion Gap 11.4 mEq/L (5-15); Aspartate Amino Transferase 30 U/L (17-59); Bilirubin,Total 0.8 mg/dl (0.2-1.3); Blood Urea Nitrogen 14 mg/dl (9-20); Calcium 8.3 mg/dl (8.4-10.2); Carbon Dioxide 33 mmol/L (22.0-30.0); Creatinine Clearance Estimated 64 mL/min (50-200); Creatinine,Serum 0.60 mg/dl (0.66-1.25); Estimated Glomerular Filt Rate 132 ml/min (>60); GFR (African American) 159 ML/MIN (>60); Globulin 2.6 g/dL (1.3-3.2); Glucose 95 mg/dl (74-100); Total Protein,Serum 6.7 g/dl (6.3-8.2)
--- NOTE | 2024-12-03 11:39 | PC.NURSE ---
Patient was provided with a blanket.
[2024-12-03 11:49] LABS: Troponin I 0.02 ng/ml (0.00-0.034)
--- NOTE | 2024-12-03 12:08 | HMH.EDCP ---
Discharge Plan Disposition Patient Disposition: Admitted Condition: Good Discharge ED Provider: Alina Sauer General Chief Complaint: Chest Pain Stated Complaint: Chest Pain Time Seen by Provider: 12/03/24 11:07 Mode of Arrival: EMS Source of Information: Patient Description of Symptoms (Recalled from ER Triage Doc. by RN): pt presents to ED with c/o shortness of air. pt was being seen at pcp office for follow up about blood pressure. pt was given an ekg and provdier noticed changes in ekg. pt sent to ed for further eval. pt reports shorntess of breath ongoing for 2-3 weeks worse with excertion and laying down. pt reports something feels different with his heart but he is unable to give description. just states something feels different . History of Present Illness HPI narrative: Patient is a 74-year-old gentleman with a past medical history of coronary artery disease who presented to the emergency department with shortness of breath at night. Patient states that he was being seen in his primary care provider for his routine blood pressure. Patient states that they did an EKG in the clinic and they were concerned called the rn wound and they recommended that he come here to the emergency department to be evaluated. Patient states that he has not had any chest pain. Patient states that his shortness of breath is only at night not with exertion. Patient has not had any fevers cough chills. Patient has not had any abdominal pain nausea vomiting or diarrhea. Patient denies any headache or vision changes. Patient was given 324 of aspirin prior to arrival, no other medications were given en route. Related Data Home Medications ?Medication ?Instructions ?Recorded ?Confirmed levothyroxine 25 mcg tablet 25 mcg PO DAILY 30 days #30 tabs 04/16/18 12/03/24 tamsulosin 0.4 mg capsule 0.4 mg PO DAILY 09/26/22 12/03/24 irbesartan 300 mg tablet 300 mg PO DAILY 12/03/24 12/03/24 metoprolol succinate 50 mg 50 mg PO DAILY 12/03/24 12/03/24 tablet,extended release 24 hr Allergies Allergy/AdvReac Type Severity Reaction Status Date / Time codeine (CODEINE) Allergy Unknown NA-HALLUCIN Verified 07/31/24 08:59 ATIONS paroxetine (PAROXETINE) Allergy Unknown Drowsy Verified 07/31/24 08:59 sertraline (SERTRALINE) Allergy Unknown UPSET Verified 07/31/24 08:59 STOMACH [id number] Reductase AdvReac Unknown Insomnia Verified 07/31/24 08:59 Inhibitor PFSH PFS Disclaimer: The information contained in this section may have been updated after the patient was seen, as this information can be updated by other users. Medical History (Updated 12/03/24 @ 16:37 by Gris Ramírez APRN) Osteoarthritis Migraine Encounter for pre-operative cardiovascular clearance Abnormal electrocardiogram [ECG] [EKG] Coronary artery disease Family history of coronary artery bypass graft surgery Sleep apnea Hypothyroid Surgical History History of lithotripsy History of inguinal hernia repair History of heart bypass surgery Hx of tympanostomy Family History Other Family history of heart disease Social History Smoking Status: Never smoker alcohol intake: never substance use type: denies use current occupational status: retired Travel in the last 8 weeks?: None adopted: Yes foster care: No household members: none housing: house lives independently: Yes marital status: single education level: high school caffeine: Yes special vel needs: No agree to transfusion: No do you feel safe at home: Yes victim of physical abuse: No victim of emotional abuse: No victim of sexual abuse: No would you like helpful sources: No Have you lived/traveled outside [place] in past 30 days?: No Contact w/someone who lives/traveled outside US past 30 days?: No Exposure to someone with infectious disease in past 14 days?: No Do you have a fever (greater than 100.4 F or 38 C)?: No Have you tested positive for COVID-19?: No Exposed to someone with COVID-19 in past 14 days?: No Do you have a sore throat?: No Do you have a cough?: No Do you have any weakness?: No Do you have any diarrhea?: No Are you experiencing any unusual bleeding?: No Do you have any muscle aches/pain?: No Do you have any abdominal pain?: No Are you experiencing loss of taste or smell?: No Other Medical History Have you received the Flu Vaccine for this season: No Have you received the Pneumonia Vaccine: No ROS Obtained: Yes All systems reviewed & no additional complaints except as documented and Yes Systems reviewed as appropriate & no additional complaints except as documented Physical Exam General General appearance: alert and in no apparent distress Head Head exam: atraumatic, normocephalic and normal inspection Eye Eye exam: Present normal appearance, PERRL and EOMI; Absent scleral icterus ENT ENT exam: Present normal exam and normal external ear exam Neck Neck exam: Present normal inspection and full ROM Chest Chest inspection: Present normal inspection and symmetric chest wall rise Respiratory Respiratory exam: Present normal lung sounds bilaterally; Absent respiratory distress or wheezes Cardiovascular Cardiovascular exam: Present regular rate, normal rhythm and normal heart sounds Abdominal Exam Abdominal exam: Present soft and distention; Absent tenderness, guarding or rebound Extremities Exam Extremities exam: Present normal inspection and full ROM Back Exam Back exam: Present normal inspection and full ROM Neurological Exam Neurological exam: Present alert and oriented X3 Psychiatric Psychiatric exam: Present normal affect and normal mood Skin Skin exam: Present warm and dry HEART Score HEART Score HEART Score assessment performed?: Yes HEART Score: 4 Critical Care Critical Care Time Critical Care Time: No Medical Decision Making Mario Inquiry Pt receiving controlled substance: No Vital Signs Vital Signs: 12/03/24 11:08 12/03/24 11:10 12/03/24 12:05 Temperature 99.0 F 98.1 F Temperature Source Oral Oral Pulse Rate 47 L 44 L Pulse Rate [Left Radial] 54 L Respiratory Rate 12 12 16 Blood Pressure 204/92 H 178/73 H Blood Pressure [Right Arm] 186/104 H Blood Pressure Mean [Right Arm] 131 Blood Pressure Source Automatic Cuff Blood Pressure Source [Right Arm] Automatic Cuff Blood Pressure Position Sitting Blood Pressure Position [Right Arm] Supine 02 Sat by Pulse Oximetry 98 98 98 Oxygen Delivery Method Room Air Room Air 12/03/24 12:06 12/03/24 12:56 12/03/24 13:27 Temperature 98.1 F Temperature Source Pulse Rate 44 L 97 H Pulse Rate [Left Radial] Respiratory Rate 18 Blood Pressure 165/71 H Blood Pressure [Right Arm] Blood Pressure Mean [Right Arm] Blood Pressure Source Blood Pressure Source [Right Arm] Blood Pressure Position Blood Pressure Position [Right Arm] 02 Sat by Pulse Oximetry Oxygen Delivery Method Room Air Room Air Lab Data Labs: Lab Results 12/03/24 11:05: WBC 7.0, RBC 5.12, Hgb 15.2, Hct 44.7, MCV 87.3, MCH 29.7, MCHC 34.0, RDW 13.4, Plt Count 242, MPV 9.2, Neut % (Auto) 55.1, Lymph % (Auto) 28.1, Ingham % (Auto) 10.4 H, Eos % (Auto) 5.4, Baso % (Auto) 0.7, Neut # (Auto) 3.9, Lymph # (Auto) 2.0, Ingham # (Auto) 0.7, Eos # (Auto) 0.4, Baso # (Auto) 0.1, PT 11.0, INR 0.99, Sodium 139, Potassium 3.4 L, Chloride 98, Carbon Dioxide 33 H, Anion Gap 11.4, BUN 14, Creatinine 0.60 L, Estimated Creat Clear 64, Estimated GFR 132, Est GFR ( Amer) 159, Glucose 95, Calcium 8.3 L, Total Bilirubin 0.8, AST 30, ALT 25, Alkaline Phosphatase 66, Troponin I 0.02, NT-Pro-B Natriuret Pep 983 H, Total Protein 6.7, Albumin 4.1, Globulin 2.6, Albumin/Globulin Ratio 1.6, TSH 0.90, HCV Ab KIRK w/Rflx PCR Qn Negative, HIV Ag/Ab Combo Qual Negative 12/04/24 05:41 12/04/24 05:41 Response Orders (Tests/Meds): ED MEDICATIONS Generic Name Dose Route Start Last Admin Trade Name Freq PRN Reason Stop Dose Admin Acetaminophen 650 mg 12/03/24 13:47 Acetaminophen 325mg Tab PO 01/02/25 13:46 Q4HP PRN Fever or Mild Pain (1-3) Amlodipine Besylate 5 mg 12/04/24 09:40 12/04/24 09:57 Amlodipine 5mg Tablet PO 01/03/25 09:39 5 mg DAILY JLUIS Administration Calcium Carbonate 500 mg 12/04/24 12:25 12/04/24 12:40 Calcium Carbonate 500mg Chewtab PO 01/03/25 12:24 500 mg QIDP PRN Administration Acid Reflux Fentanyl Citrate 50 mcg 12/04/24 10:55 Fentanyl 100mcg/2ml Vial IV 12/04/24 22:59 Q3MINP PRN Sedation Fentanyl Citrate 25 mcg 12/04/24 10:55 Fentanyl 100mcg/2ml Vial IV 12/04/24 22:59 Q3MINP PRN Sedation Flumazenil 0.2 mg 12/04/24 10:55 Flumazenil 0.1mg/Ml 5ml Vial IV 12/04/24 22:59 NEEDED PRN Sedation Hydrochlorothiazide 25 mg 12/03/24 15:20 12/04/24 08:09 Hydrochlorothiazide 25mg Tablet PO 01/02/25 15:19 25 mg DAILY JLUIS Administration Levothyroxine Sodium 25 mcg 12/04/24 07:00 12/04/24 07:31 Levothyroxine 25mcg (0.025mg) Tab PO 01/03/25 06:59 Not Given DAILYDM JLUIS Melatonin 10 mg 12/03/24 21:00 12/03/24 21:08 Melatonin 5mg Tablet PO 01/02/25 20:59 10 mg HS JLUIS Administration Midazolam HCl 1 mg 12/04/24 10:55 Midazolam 2mg/2ml Vial IV 12/04/24 22:59 Q3MINP PRN Sedation Midazolam HCl 1 mg 12/04/24 10:55 Midazolam Hcl 1mg/Ml 5ml Vial IV 12/04/24 22:59 Q3MINP PRN Sedation Naloxone HCl 0.4 mg 12/04/24 10:55 Naloxone 0.4mg/Ml Vial IV 12/04/24 22:59 Q5MINP PRN Decreased Respirations Nicotine 21 mg 12/03/24 18:20 12/04/24 08:09 Nicotine 21mg/24hr Patch TD 01/02/25 18:19 21 mg DAILY JLUIS Administration Ondansetron HCl 4 mg 12/04/24 10:55 Ondansetron 4mg/2ml Vial IV 12/04/24 22:59 NEEDED PRN Nausea Pantoprazole Sodium 40 mg 12/04/24 21:00 Pantoprazole 40mg Tablet PO 01/03/25 20:59 HS JLUIS Promethazine HCl 25 mg 12/04/24 10:55 Promethazine Hcl 25mg/Ml 1ml Vial IV 12/04/24 22:59 NEEDED PRN Nausea And Vomiting Tamsulosin HCl 0.4 mg 12/03/24 20:10 12/04/24 08:09 Tamsulosin 0.4mg Capsule PO 01/02/25 20:09 0.4 mg DAILY JLUIS Administration Discontinued Medications Generic Name Dose Route Start Last Admin Trade Name Hosea PRN Reason Stop Dose Admin Calcium Carbonate 1,000 mg 12/04/24 01:29 12/04/24 06:01 Calcium Carbonate 500mg Chewtab PO 12/04/24 01:30 Not Given ONCE ONE Enoxaparin Sodium 40 mg 12/03/24 16:41 12/03/24 17:05 Enoxaparin 40mg/0.4ml Syringe SUBCUT 12/03/24 16:42 40 mg DAILY ONE Administration Potassium Chloride 40 meq 12/03/24 15:00 12/03/24 18:11 Potassium Chloride 20meq Tab PO 12/03/24 19:01 40 meq Q4H JLUIS Administration Tamsulosin HCl 0.4 mg 12/04/24 09:00 Tamsulosin 0.4mg Capsule PO 01/03/25 08:59 DAILY JLUIS ORDERS Category Date Time Status CXR --portable [XR chest portable] Stat Exams 12/03/24 12:49 Completed CBC w/Auto Diff [Complete Blood Count Auto Diff] Stat Lab 12/03/24 11:05 Completed CMP [Comprehensive Metabolic Panel] Stat Lab 12/03/24 11:05 Completed HIV Combo Stat Lab 12/03/24 11:05 Completed Hepatitis C Ab Qual. W/ RFX Stat Lab 12/03/24 11:05 Completed Prothrombin Time INR Stat Lab 12/03/24 11:05 Completed Trop I [Troponin I] Stat Lab 12/03/24 11:05 Completed Troponin I Q3H Lab 12/03/24 14:17 Completed Troponin I Q3H Lab 12/03/24 17:40 Completed ECG Data Tracing #1: Attestation: I reviewed this ECG and interpreted as documented below: ECG Narrative: EKG with normal sinus rhythm, deep T waves in V2 and V5 no other acute ischemic findings. MDM Narrative Medical Decision Narrative: Patient is a 74-year-old gentleman with no significant past medical history except for coronary artery disease and hypertension who presented to the emergency department with shortness of breath and abnormal EKG from clinic. On arrival, patient was hemodynamically stable with unremarkable vital signs. Differential includes but not limited to ACS/IL, pneumothorax, pleural effusion, costochondritis, arrhythmia, pneumonia, amongst others. On arrival, patient was pain-free, patient had an otherwise unremarkable exam. Initial EKG was obtained which showed deep inverted T waves in V2 and V5. Patient had no other ischemic changes on EKG. Patient was given 324 of aspirin prior to arrival. Cardiac workup was obtained including chest x-ray. Chest x-ray was reviewed and interpreted by myself and showed no acute findings. Cardiology was consulted on arrival given deep inverted T waves in V2 and V5. CBC was reviewed and interpreted by myself and showed no acute pathology, hemoglobin was stable, no leukocytosis. CMP was unremarkable. Initial troponin 0.02, second troponin 0.01. After discussion with cardiology, they recommended admission to the hospital floor for further cardiac management. Patient was ultimately admitted to hospital medicine.
[2024-12-03 12:25] LABS: Hepatitis C Ab Qual. W/ RFX NEGATIVE (Negative)
--- NOTE | 2024-12-03 12:36 | PC.NURSE ---
Dr. Sauer on the phone with Dr. Correia
--- NOTE | 2024-12-03 12:43 | PC.NURSE ---
char house supervisor notified of need to admit
--- NOTE | 2024-12-03 12:49 | XR_ITS ---
FINAL REPORT CLINICAL HISTORY: shortness of breath COMPARISON: None FINDINGS: A single frontal view of the chest was obtained. No acute pulmonary opacity is present. There is no evidence of effusion or pneumothorax. The patient is status post CABG. Mediastinum is otherwise unremarkable. Heart size is normal. IMPRESSION: No acute abnormality. Reviewed, Interpreted and Dictated by Angy Manuel MD Transcribed by Yoly Portillo Authenticated and [facility]
--- NOTE | 2024-12-03 13:06 | HMH.PHAINT1 ---
Pharmacy Intervention Comments: MEDICATION RECONCILIATION COMPLETED ON PATIENT USING EXTERNAL FILL HISTORY FROM PHARMACY. -CLAIR DIETZ, DAVIDD
--- NOTE | 2024-12-03 13:30 | PC.NURSE ---
Pt taken to the floor per nursing staff
--- NOTE | 2024-12-03 13:34 | PC.NURSE ---
arived by w/c from ED
--- NOTE | 2024-12-03 14:07 | CA_ITS ---
APPROVED REPORT EXAM: Comprehensive 2D, Doppler, and color-flow Echocardiogram Wood Filler: Michelle Whitmore RT(R) Ht: 5 ft 8 in Wt: 155lbs BSA: 1.83 BP: 178/73 mmHg Indications: bradycardia, shortness of air, abn EKG 2D Dimensions LA Volume 39.30 mL LA Volume Index 21.36 mL/m2 (M/F) 16-34 EF AP4 59.70 % GL Strain -17.9 % M-Mode Dimensions RVDd 2.58 cm (0.9-2.6) LA Diam 2.98 cm (1.9-4.0) LVDd 5.43 cm (3.5-5.7) LVDs 4.10 cm (3.5-5.7) IVSd 1.17 cm (0.6-1.1) PWd 1.17 cm (0.6-1.1) EF (Teich) 48.10% FS 24.50% EDV (Teich) 143.10 mL ESV (Teich) 74.20 mL LV Diastology E Decel Time 380 (160-240 msec) E/A Ratio 1.3 Mitral Valve MV E Max Dong. 71.0 (40-130 cm/s) MV A Velocity 56.0 (40-130 cm/s) E/A Ratio 1.27 MV PHT 111.0 ms Left Ventricle The left ventricle is normal size. The left ventricular systolic function is normal. The left ventricular ejection fraction is within the normal range. Proximal septal thickening is present. There is normal LV segmental wall motion. Diastolic function is indeterminate. LVEF is 55%. Right Ventricle The right ventricle is normal size. The right ventricular systolic function is normal. Atria Left atrium is mildly dilated. Right atrium is mildly dilated. There is no Doppler evidence of interatrial shunt. Aortic Valve Aortic valve is mildly thickened. Mild aortic regurgitation. There is no aortic valvular stenosis. Mitral Valve The mitral valve is mildly thickened. No evidence of mitral valve stenosis. Mild mitral regurgitation. Tricuspid Valve Tricuspid valve is grossly normal in structure and function. Mild tricuspid regurgitation. RVSP is normal. Pulmonic Valve The pulmonary valve is normal in structure. Trace pulmonic regurgitation. Great Vessels The aortic root is normal in size. IVC is normal in size and collapses >50% with inspiration. Pericardium There is no pericardial effusion. Other Information Study Quality: Fair Conclusion Normal biventricular systolic function. Mild biatrial dilation. Mild AI, mild MR, mild TR. Electronically signed by : Fernanda Quiros MD 12/05/2024 22:46:34
--- NOTE | 2024-12-03 14:36 | P.HP_ITS ---
<Statement entered by Dennis Randolph MD - 12/08/24 08:54> Personally examined patient and agree with plan of care as outlined by the [employer]INEER. History of Present Illness *Admission Date: 12/03/24 *Reason for visit:: Bradycardia *History of present illness: Mr. Peña is a 74-year-old male who was sent to the emergency room by his primary care provider after a routine visit for hypertension. He states that he has had a few medicine changes here recently related to his elevated blood pressure. He also follows with cardiology here at [facility]. He was found to have a low heart rate in the office, around 40. EKG was obtained and appeared abnormal per the patient. He was sent to the emergency room for cardiology consult Dr. Correia recommended admission for further workup and possible pacemaker. [facility] Disclaimer: The information contained in this section may have been updated after the patient was seen, as this information can be updated by other users. Medical History (Updated 12/03/24 @ 16:37 by Gris Ramríez APRN) Osteoarthritis Migraine Encounter for pre-operative cardiovascular clearance Abnormal electrocardiogram [ECG] [EKG] Coronary artery disease Family history of coronary artery bypass graft surgery Sleep apnea Hypothyroid Surgical History History of lithotripsy History of inguinal hernia repair History of heart bypass surgery Hx of tympanostomy Family History Other Family history of heart disease Social History Smoking Status: Never smoker alcohol intake: never substance use type: denies use current occupational status: retired Travel in the last 8 weeks?: None adopted: Yes foster care: No household members: none housing: house lives independently: Yes marital status: single education level: high school caffeine: Yes special vel needs: No agree to transfusion: No do you feel safe at home: Yes victim of physical abuse: No victim of emotional abuse: No victim of sexual abuse: No would you like helpful sources: No Have you lived/traveled outside US in past 30 days?: No Contact w/someone who lives/traveled outside US past 30 days?: No Exposure to someone with infectious disease in past 14 days?: No Do you have a fever (greater than 100.4 F or 38 C)?: No Have you tested positive for COVID-19?: No Exposed to someone with COVID-19 in past 14 days?: No Do you have a sore throat?: No Do you have a cough?: No Do you have any weakness?: No Do you have any diarrhea?: No Are you experiencing any unusual bleeding?: No Do you have any muscle aches/pain?: No Do you have any abdominal pain?: No Are you experiencing loss of taste or smell?: No Other Medical History Have you received the Flu Vaccine for this season: No Have you received the Pneumonia Vaccine: No Review of Systems Review of Systems Review of systems:: pertinent systems reviewed and negative unless documented below Constitutional Constitutional: Reports difficulty sleeping, Reports fatigue, Reports lethargy, Denies weakness, Denies weight gain and Denies weight loss ENT Ears, Nose, Mouth, and Throat: Denies dizziness *Cardiovascular Cardiovascular: Denies chest pain, Denies diaphoresis, Denies dyspnea, Denies lightheadedness, Denies pedal edema, Denies rapid heart rate and Reports slow heart rate *Respiratory Respiratory: Denies cough, Denies dyspnea and Denies wheezing *Gastrointestinal Gastrointestinal: Denies abdominal pain and Denies change in bowel habits *Genitourinary Genitourinary: Reports urinary hesitancy and Denies urinary incontinence *Neurologic Neurologic: Denies dizziness and Denies weakness Endocrine Endocrine: Reports fatigue Allergic/Immunologic Allergic/Immunologic: Denies wheezing Meds Home Medications and Allergies Home Medications ?Medication ?Instructions ?Recorded ?Confirmed ?Type levothyroxine 25 mcg tablet 25 mcg PO DAILY 30 days #3 0 tabs 04/16/18 12/03/24 History tamsulosin 0.4 mg capsule 0.4 mg PO DAILY 09/26/22 History irbesartan 300 mg tablet 300 mg PO DAILY 12/03/24 History metoprolol succinate 50 mg 50 mg PO DAILY 12/03/24 History tablet,extended release 24 hr New Prescriptions to Start Prescriptions: Allergies Allergy/AdvReac Type Severity Reaction Status Date / Time codeine (CODEINE) Allergy Unknown NA-HALLUCIN Verified 07/31/24 08:59 ATIONS paroxetine (PAROXETINE) Allergy Unknown Drowsy Verified 07/31/24 08:59 sertraline (SERTRALINE) Allergy Unknown UPSET Verified 07/31/24 08:59 STOMACH [id number]-FOG-VeU Reductase AdvReac Unknown Insomnia Verified 07/31/24 08:59 Inhibitor Exam Data for Last 24 hours Vital signs and Labs for Last 24 Hours: Temp Pulse Resp BP Pulse Ox O2 Del Method 98.1 F 42 L 18 153/98 H 97 Room Air 12/03/24 13:27 12/03/24 13:35 12/03/24 13:35 12/03/24 13:35 12/03/24 13:35 12/03/24 13:35 Laboratory Results - last 24 hr 12/03/24 11:05: WBC 7.0, RBC 5.12, Hgb 15.2, Hct 44.7, MCV 87.3, MCH 29.7, MCHC 34.0, RDW 13.4, Plt Count 242, MPV 9.2, Neut % (Auto) 55.1, Lymph % (Auto) 28.1, [place] % (Auto) 10.4 H, Eos % (Auto) 5.4, Baso % (Auto) 0.7, Neut # (Auto) 3.9, Lymph # (Auto) 2.0, [place] # (Auto) 0.7, Eos # (Auto) 0.4, Baso # (Auto) 0.1, PT 11.0, INR 0.99, Sodium 139, Potassium 3.4 L, Chloride 98, Carbon Dioxide 33 H, Anion Gap 11.4, BUN 14, Creatinine 0.60 L, Estimated Creat Clear 64, Estimated GFR 132, Est GFR ( Amer) 159, Glucose 95, Calcium 8.3 L, Total Bilirubin 0.8, AST 30, ALT 25, Alkaline Phosphatase 66, Troponin I 0.02, Total Protein 6.7, Albumin 4.1, Globulin 2.6, Albumin/Globulin Ratio 1.6, HCV Ab KIRK w/Rflx PCR Qn Negative, HIV Ag/Ab Combo Qual Negative I & O for Last 24 hours: Intake & Output 11/30/24 12/01/24 12/02/24 12/03/24 23:59 23:59 23:59 23:59 Weight 71.668 kg Constitutional Constitutional: no acute distress, thin and cooperative *Routine HEENT Exam Head: Present normocephalic Eye: Present EOMI ENT: Present mucous membranes moist *Routine Neck Exam Neck: Present supple and full ROM; Absent JVD *Routine Respiratory Exam Respiratory: Present CTA bilaterally, normal respiratory effort, able to speak in complete sentences and symmetric chest movement; Absent wheezes or crackles *Routine Cardiovascular Exam Cardiovascular: Present Normal S1, Normal S2 and bradycardia *Routine Abdominal Exam Abdominal: Present soft and normoactive bowel sounds; Absent tenderness or distended *Routine Rectal Exam Rectal:: deferred *Routine Genitalia Exam Genitalia:: deferred *Routine Extremities Exam Extremities: Present full ROM and pulses intact; Absent clubbing or edema *Routine Skin Exam Skin: Present intact and dry *Routine Neurological Exam Neurological: Present alert and oriented X3 Assessment and Plan *Assessment and plan (1) Sinus bradycardia: Status: Acute Category: Medical Code(s): R00.1 - Bradycardia, unspecified (2) Hypertensive heart disease: Status: Acute Qualifiers: Heart failure presence: unspecified whether heart failure present Qualified Code(s): I11.9 - Hypertensive heart disease without heart failure Category: Medical Code(s): I11.9 - Hypertensive heart disease without heart failure (3) Coronary artery disease: Status: Acute Qualifiers: Associated angina: without angina Coronary Disease-Associated Ar loan/Lesion type: [place] artery [place] vs. transplanted heart: [place] heart Qualified Code(s): I25.10 - Atherosclerotic heart disease of [place] coronary artery without angina pectoris Category: Medical Code(s): I25.10 - Atherosclerotic heart disease of [place] coronary artery without angina pectoris (4) History of coronary artery bypass graft: Status: Acute Category: Surgical Code(s): Z95.1 - Presence of aortocoronary bypass graft (5) BPH (benign prostatic hyperplasia): Status: Acute Category: Medical Code(s): N40.0 - Benign prostatic hyperplasia without lower urinary tract symptoms (6) Hypothyroid: Status: Acute Category: Medical Code(s): E03.9 - Hypothyroidism, unspecified Plan Mr. Peña is a 74-year-old male who went to the emergency department today after a primary care appointment where he was found to be bradycardic. Patient was asymptomatic, denies chest pain, shortness of breath, abdominal pain, nausea, vomiting, dizziness. He does state that he has been more fatigued over the last 1 to 2 weeks. But also states that his PCP has been changing his medication around recently due to uncontrolled hypertension. His PCP, Ramu Cuellar, consulted Dr. Correia, cardiology, who stated that he should go to the emergency room for further workup. Workup was done in the emergency department no leukocytosis, no anemia, slight hypokalemia of 3.4, normal kidney function, creatinine 0.60. Glucose 95, slightly elevated BNP at 93. Serial troponin 0.02. TSH 0.90 within normal limits. Chest x-ray was performed and showed no acute findings. Cardiology was consulted and recommendation to admit patient for further cardiac workup, echo. I was consulted by the emergency room physician and agreed to admit the patient for further monitoring; plan of care as follows: #Sinus bradycardia #Coronary artery disease #History of CABG ?Patient heart rate consistently bradycardic, around 40. Patient is asymptomatic denies chest pain, shortness of breath, weakness. Patient placed on continuous telemetry, echo ordered. Patient did have echo in July 2024, that showed normal BiV systolic function, mild AI, mild TR, LVEF 60%. ?Patient does have a history of a CABG, follows with [facility] cardiology. ?Patient had EKG personally interpreted by myself showing sinus bradycardia, RBBB, ST depression leads V2. ?Cardiology consulted. ?Serial troponins remain negative. Will continue to monitor. ?CBC, CMP, magnesium, lipid panel ordered for a.m. #Hypertensive heart disease ?Patient has been seeing PCP frequently recently due to uncontrolled hypertension. Patient states systolic pressures have been anywhere from 160s to 180s. He has had multiple medication changes. Currently he is taking Avapro 300 mg daily, metoprolol succinate 50 mg daily. He was placed on metoprolol in July 2024, could be contributing to the bradycardia. Will hold hypertensive medications at this time. ?Renal duplex ultrasound ordered to rule out renal stenosis contributing uncontrolled hypertension. #BPH ? Continue tamsulosin 0.4 mg. #Hypothyroid ?TSH 0.90. Patient currently takes levothyroxine 25 mcg. Will continue. Full code VTE?Lovenox 40 subcu Cardiac diet Ambulate as tolerated
[2024-12-03 14:49] LABS: Troponin I 0.02 ng/ml (0.00-0.034)
--- NOTE | 2024-12-03 14:58 | EXP.CARD.CON ---
History of Present Illness History of Present Illness Consult date: 12/03/24 Requesting physician: Dennis Randolph Consult reason: known to you Chief complaint: Bradycardia Additional Medical History:: 1. CAD A. History of three-vessel bypass, [facility], 2022, (performed for abnormal stress test), showed moderate CAD with patent LAMAR to LAD. 2. Hypertension A. Echo, 07/2024, normal BiV systolic function with mild AI and TR 3. Hypothyroidism, on replacement therapy 4. History of bifascicular block on EKG, 07/2024 A. [place] for sinus bradycardia with heart rate in the 40s 5. Hyperlipidemia, intolerant to statins History of present illness: 74-year-old white male with known coronary artery disease, bypass, bifascicular block on EKG and difficult hypertension to control was seen in his primary care office today for follow-up on blood pressure medication adjustment. He relates not feeling well/fatigued for the last couple of months which may coordinate to his metoprolol use. EKG was obtained with heart rate in the 40s and patient was sent to the ER for further evaluation. He denies any chest pain, syncope or near syncopal symptoms. [facility] Disclaimer: The information contained in this section may have been updated after the patient was seen, as this information can be updated by other users. Medical History Osteoarthritis Migraine Encounter for pre-operative cardiovascular clearance Abnormal electrocardiogram [ECG] [EKG] Coronary artery disease Family history of coronary artery bypass graft surgery Sleep apnea Hypothyroid Surgical History History of lithotripsy History of inguinal hernia repair History of heart bypass surgery Hx of tympanostomy multiple times Family History Other Family history of heart disease Social History Smoking Status: Never smoker alcohol intake: never substance use type: denies use current occupational status: retired Travel in the last 8 weeks?: None adopted: Yes foster care: No household members: none housing: house lives independently: Yes marital status: single education level: high school caffeine: Yes special vel needs: No agree to transfusion: No do you feel safe at home: Yes victim of physical abuse: No victim of emotional abuse: No victim of sexual abuse: No would you like helpful sources: No Have you lived/traveled outside US in past 30 days?: No Contact w/someone who lives/traveled outside US past 30 days?: No Exposure to someone with infectious disease in past 14 days?: No Do you have a fever (greater than 100.4 F or 38 C)?: No Have you tested positive for COVID-19?: No Exposed to someone with COVID-19 in past 14 days?: No Do you have a sore throat?: No Do you have a cough?: No Do you have any weakness?: No Do you have any diarrhea?: No Are you experiencing any unusual bleeding?: No Do you have any muscle aches/pain?: No Do you have any abdominal pain?: No Are you experiencing loss of taste or smell?: No Review of Systems Review of Systems Review of systems:: pertinent systems reviewed and negative unless documented below Constitutional Constitutional: Reports lethargy and Reports weakness *Cardiovascular Cardiovascular: Denies chest pain, Denies dyspnea and Reports slow heart rate *Respiratory Respiratory: Denies dyspnea *Neurologic Neurologic: Reports weakness Exam Data for Last 24 hours Vital signs and Labs for Last 24 Hours: Temp Pulse Resp BP Pulse Ox O2 Del Method 98.1 F 42 L 18 153/98 H 97 Room Air 12/03/24 13:27 12/03/24 13:35 12/03/24 13:35 12/03/24 13:35 12/03/24 13:35 12/03/24 13:35 Laboratory Results - last 24 hr 12/03/24 11:05: WBC 7.0, RBC 5.12, Hgb 15.2, Hct 44.7, MCV 87.3, MCH 29.7, MCHC 34.0, RDW 13.4, Plt Count 242, MPV 9.2, Neut % (Auto) 55.1, Lymph % (Auto) 28.1, [place] % (Auto) 10.4 H, Eos % (Auto) 5.4, Baso % (Auto) 0.7, Neut # (Auto) 3.9, Lymph # (Auto) 2.0, [place] # (Auto) 0.7, Eos # (Auto) 0.4, Baso # (Auto) 0.1, PT 11.0, INR 0.99, Sodium 139, Potassium 3.4 L, Chloride 98, Carbon Dioxide 33 H, Anion Gap 11.4, BUN 14, Creatinine 0.60 L, Estimated Creat Clear 64, Estimated GFR 132, Est GFR ( Amer) 159, Glucose 95, Calcium 8.3 L, Total Bilirubin 0.8, AST 30, ALT 25, Alkaline Phosphatase 66, Troponin I 0.02, Total Protein 6.7, Albumin 4.1, Globulin 2.6, Albumin/Globulin Ratio 1.6, HCV Ab KIRK w/Rflx PCR Qn Negative, HIV Ag/Ab Combo Qual Negative I & O for Last 24 hours: Intake & Output 12/01/24 12/02/24 12/03/24 12/04/24 11:59 11:59 11:59 11:59 Weight 155 lb 158 lb Constitutional Constitutional: no acute distress *Routine Respiratory Exam Respiratory: Present CTA bilaterally *Routine Cardiovascular Exam Cardiovascular: Present RRR, murmur and bradycardia; Absent gallop or rubs *Routine Extremities Exam Extremities: Absent edema *Routine Neurological Exam Neurological: Present alert, oriented X3 and CN II-XII intact Meds Home Medications and Allergies Home Medications ?Medication ?Instructions ?Recorded ?Confirmed ?Type levothyroxine 25 mcg tablet 25 mcg PO DAILY 30 days #30 tabs 04/16/18 12/03/24 History tamsulosin 0.4 mg capsule 0.4 mg PO DAILY 09/26/22 12/03/24 History irbesartan 300 mg tablet 300 mg PO DAILY 12/03/24 12/03/24 History metoprolol succinate 50 mg 50 mg PO DAILY 12/03/24 12/03/24 History tablet,extended release 24 hr New Prescriptions to Start Prescriptions: Allergies Allergy/AdvReac Type Severity Reaction Status Date / Time codeine (CODEINE) Allergy Unknown NA-HALLUCIN Verified 07/31/24 08:59 ATIONS paroxetine (PAROXETINE) Allergy Unknown Drowsy Verified 07/31/24 08:59 sertraline (SERTRALINE) Allergy Unknown UPSET Verified 07/31/24 08:59 STOMACH Qbtzpeg-SNS-DbS Reductase AdvReac Unknown Insomnia Verified 07/31/24 08:59 Inhibitor Assessment and Plan *Assessment and plan (1) Sinus bradycardia: Status: Acute Category: Medical Code(s): R00.1 - Bradycardia, unspecified (2) Coronary arteriosclerosis: Status: Acute Category: Medical Code(s): I25.10 - Atherosclerotic heart disease of [place] coronary artery without angina pectoris (3) History of coronary artery bypass graft: Status: Acute Category: Surgical Code(s): Z95.1 - Presence of aortocoronary bypass graft (4) Hypertensive disorder: Status: Acute Qualifiers: Hypertension type: unspecified Qualified Code(s): I10 - Essential (primary) hypertension Category: Medical Code(s): I10 - Essential (primary) hypertension (5) Hyperlipidemia: Status: Acute Qualifiers: Hyperlipidemia type: other hyperlipidemia Qualified Code(s): E78.49 - Other hyperlipidemia Category: Medical Code(s): E78.5 - Hyperlipidemia, unspecified (6) Abnormal electrocardiogram [ECG] [EKG]: Status: Acute Category: Medical Code(s): R94.31 - Abnormal electrocardiogram [ECG] [EKG] Plan 1. Sinus Bradycardia -possibly due to metoprolol, will hold and follow HR - Troponins normal -No syncope or near syncope -use glucagon or dopamine if symptomatic overnight 2. CAD with history of CABG -[facility], 2022, clinically stable -Troponins normal 3. Elevated BNP -Clinically no evidence of CHF -Check echo 4. Hypertension -Historically poorly controlled -Continue irbesartan -Add HCTZ 5. Hyperlipidemia -Check lipids -Historically intolerant to statins. May need to consider Repatha 6. Hypokalemia at 3.4 -Add supple Hold metoprolol Add HCTZ Monitor overnight Consider pacemaker tomorrow if sinus bradycardia continues Await echocardiogram report to decide on which pacemaker he would need. Check AM cortisol and free testosterone and total testosterone.
[2024-12-03 15:02] LABS: NT Pro Brain Natriuretic Pep. 983 pg/mL (0-125)
--- NOTE | 2024-12-03 15:08 | CA_ITS ---
FINAL REPORT CLINICAL HISTORY: HTN,CAD, CABG FINDINGS: DOPPLER RENAL VESSELS FINDINGS: Intrarenal resistive indices on the right are 0.76-0.79, normal . Intrarenal resistive indices on the left are 0.69-0.75, normal . Right main renal artery systolic velocity: 113 cm/sec. Aortic-right renal artery flow velocity ratio: 1.20 COMMENT: Less than 50% renal artery stenosis . Left main renal artery systolic velocity: 141 cm/sec. Aortic-left renal artery flow velocity ratio: 1.49 COMMENT: Less than 50% renal artery stenosis . IMPRESSION: No evidence of hemodynamically significant renal artery stenosis CTA or gadolinium-enhanced MR may be considered as a more sensitive exam. Alternatively noncontrast MRI may be considered for assessing main renal arteries for stenosis as a more sensitive exam if the patient has renal insufficiency. Reviewed, Interpreted and Dictated by Angy Manuel MD Transcribed by Yoly Portillo Authenticated and . [facility]
[2024-12-03 15:17] LABS: Thyroid Stimulating Hormone 0.90 uIU/mL (0.465-4.68)
[2024-12-03] MEDS: POTASSIUM CHLORIDE 20MEQ TAB 40 MEQ PO ×2 (16:31→18:11)
--- NOTE | 2024-12-03 17:18 | PC.NURSE ---
Pt alert and oriented x4. Pt ambulatory. Cardiac consultation ordered. Pt received Lovenox for VTE. Potassium replacement protocol initiated. Pt currently sitting in chair eating dinner. No complaints of pain and no current needs voiced at this time.
[2024-12-03 18:16] LABS: Troponin I 0.01 ng/ml (0.00-0.034)
[2024-12-03] MEDS: NICOTINE 21MG/24HR PATCH 21 MG TD (18:24)
[2024-12-03] MEDS: TAMSULOSIN 0.4MG CAPSULE 0.4 MG PO (21:08)
[2024-12-03] MEDS: MELATONIN 5MG TABLET 10 MG PO (21:08)
[2024-12-04] VITALS: BP 176/83; PULSE 55; PULSE 58; RESP 16; TEMP 36.5; O2SAT 98
[2024-12-04 04:00] VITALS: BP 149/79; PULSE 45; PULSE 46; RESP 18; TEMP 36.5; O2SAT 96; BMI 23.3
--- NOTE | 2024-12-04 06:00 | PC.NURSE ---
no acute changes this shift. HR 40's-50's. Lowest seen was 38 while sleeping. Pt has had no complaints and has rested well
[2024-12-04 06:43] LABS: Hematocrit 44.2 % (42.0-52.0); Hemoglobin 14.9 g/dL (14.1-18.0); Immature Granulocytes % 0.3 %; Mean Corpuscular HGB Conc 33.7 g/dL (31.8-35.4); Mean Corpuscular Hemoglobin 29.7 pg (27.0-31.2); Mean Corpuscular Volume 88.2 fl (80-94); Nucleated Red Blood Cells % 0 %; Platelet Count 243 K/mm3 (142-424); Red Blood Count 5.01 M/mm3 (4.60-6.20); Red Cell Distribution Width-SD 44.7 fL; White Blood Count 6.8 K/mm3 (4.8-10.8)
[2024-12-04 06:51] LABS: Alanine Aminotransferase 19 U/L (12-78); Albumin Level 3.9 g/dl (3.5-5.0); Albumin/Globulin Ratio 1.6 (1.1-1.8); Alkaline Phosphatase 62 U/L (38-126); Anion Gap 14.2 mEq/L (5-15); Aspartate Amino Transferase 25 U/L (17-59); Bilirubin,Total 1.1 mg/dl (0.2-1.3); Blood Urea Nitrogen 18 mg/dl (9-20); Calcium 9.5 mg/dl (8.4-10.2); Carbon Dioxide 23 mmol/L (22.0-30.0); Chloride 105 mmol/L (98-107); Cholesterol 217 mg/dl (140-200); Creatinine Clearance Estimated 64 mL/min (50-200); Creatinine,Serum 0.90 mg/dl (0.66-1.25); Estimated Glomerular Filt Rate 82 ml/min (>60); GFR (African American) 100 ML/MIN (>60); Globulin 2.4 g/dL (1.3-3.2); Glucose 107 mg/dl (74-100); HDL Cholesterol 50 mg/dl (40-60); Magnesium 2.0 mg/dl (1.6-2.3); Phosphorous 3.8 mg/dl (2.5-4.5); Potassium 4.2 mmoL/L (3.5-5.1); Sodium 138 mmol/L (136-145); Total Protein,Serum 6.3 g/dl (6.3-8.2); Triglycerides 124 mg/dl (30-150)
[2024-12-04 08:00] VITALS: BP 150/90; PULSE 50; RESP 16; TEMP 36.7; O2SAT 99
[2024-12-04] MEDS: NICOTINE 21MG/24HR PATCH 21 MG TD (08:09)
[2024-12-04] MEDS: TAMSULOSIN 0.4MG CAPSULE 0.4 MG PO (08:09)
--- NOTE | 2024-12-04 09:28 | EXP.CARD.PN ---
Subjective Subjective Date: 12/04/24 Time: :28 Principal diagnosis: Bradycardia Interval history: 74-year-old white male in bed eating breakfast in no acute distress. No complaints overnight. Telemetry still shows heart rate in the 40s. His last dose of metoprolol was yesterday morning. Preliminary echocardiogram shows preserved ejection fraction Exam Data for Last 24 hours Vital signs and Labs for Last 24 Hours: Temp Pulse Resp BP Pulse Ox O2 Del Method 98.0 F 50 L 16 150/90 H 99 Room Air 12/04/24 08:00 12/04/24 08:00 12/04/24 08:00 12/04/24 08:00 12/04/24 08:00 12/04/24 09:00 Laboratory Results - last 24 hr 12/03/24 11:05: WBC 7.0, RBC 5.12, Hgb 15.2, Hct 44.7, MCV 87.3, MCH 29.7, MCHC 34.0, RDW 13.4, Plt Count 242, MPV 9.2, Neut % (Auto) 55.1, Lymph % (Auto) 28.1, [place] % (Auto) 10.4 H, Eos % (Auto) 5.4, Baso % (Auto) 0.7, Neut # (Auto) 3.9, Lymph # (Auto) 2.0, [place] # (Auto) 0.7, Eos # (Auto) 0.4, Baso # (Auto) 0.1, PT 11.0, INR 0.99, Sodium 139, Potassium 3.4 L, Chloride 98, Carbon Dioxide 33 H, Anion Gap 11.4, BUN 14, Creatinine 0.60 L, Estimated Creat Clear 64, Estimated GFR 132, Est GFR ( Amer) 159, Glucose 95, Calcium 8.3 L, Total Bilirubin 0.8, AST 30, ALT 25, Alkaline Phosphatase 66, Troponin I 0.02, NT-Pro-B Natriuret Pep 983 H, Total Protein 6.7, Albumin 4.1, Globulin 2.6, Albumin/Globulin Ratio 1.6, TSH 0.90, HCV Ab KIRK w/Rflx PCR Qn Negative, HIV Ag/Ab Combo Qual Negative 12/03/24 14:17: Troponin I 0.02 12/03/24 17:40: Troponin I 0.01 12/04/24 05:41: WBC 6.8, RBC 5.01, Hgb 14.9, Hct 44.2, MCV 88.2, MCH 29.7, MCHC 33.7, RDW 13.9, Plt Count 243, MPV 9.6, Neut % (Auto) 56.2, Lymph % (Auto) 26.3, [place] % (Auto) 8.7, Eos % (Auto) 7.9, Baso % (Auto) 0.6, Neut # (Auto) 3.8, Lymph # (Auto) 1.8, [place] # (Auto) 0.6, Eos # (Auto) 0.5 H, Baso # (Auto) 0.0, Sodium 138, Potassium 4.2 D, Chloride 105, Carbon Dioxide 23, Anion Gap 14.2, BUN 18 D, Creatinine 0.90 D, Estimated Creat Clear 64, Estimated GFR 82, Est GFR ( Amer) 100 D, Glucose 107 H, Calcium 9.5, Phosphorus 3.8, Magnesium 2.0, Total Bilirubin 1.1, AST 25, ALT 19, Alkaline Phosphatase 62, Total Protein 6.3, Albumin 3.9, Globulin 2.4, Albumin/Globulin Ratio 1.6, Triglycerides 124, Cholesterol 217 H, LDL Cholesterol Direct 126.01, VLDL Cholesterol 25, HDL Cholesterol 50, Cholesterol/HDL Ratio 4.3 H I & O for Last 24 hours: Intake & Output 12/01/24 12/02/24 12/03/24 12/04/24 11:59 11:59 11:59 11:59 Output Total 0 / 0 Balance 0 / 0 Weight 155 lb 154 lb 3.2 oz Constitutional Constitutional: no acute distress *Routine Respiratory Exam Respiratory: Present CTA bilaterally *Routine Cardiovascular Exam Cardiovascular: Present RRR and bradycardia; Absent murmur, gallop or rubs Progress Note: A&P Assessment and plan (1) Sinus bradycardia: Status: Acute (2) Hypertensive heart disease: Status: Acute (3) Coronary artery disease: Status: Acute (4) History of coronary artery bypass graft: Status: Acute (5) BPH (benign prostatic hyperplasia): Status: Acute (6) Hypothyroid: Status: Acute Assessment and Plan Assessment and Plan for All Diagnoses:: 1. Sinus Bradycardia -possibly due to metoprolol, will hold and follow HR -Troponins normal -No syncope or near syncope -use glucagon or dopamine if symptomatic overnight 2. CAD with history of CABG -[facility], 2022, clinically stable -Troponins normal 3. Elevated BNP -Clinically no evidence of CHF -Check echo, preliminary EF is normal 4. Hypertension -Historically poorly controlled -Continue irbesartan -Add HCTZ -renal duplex unremarkable this admission -add norvasc for now 5. Hyperlipidemia -Check lipids -Historically intolerant to statins. May need to consider Repatha 6. Hypokalemia resolved now at 4.2 Add norvasc 5 mg daily for now Due to the patient's CAD with prior CABG, beta ana is a class one recommendation. Pt has chronic bifascicular block on EKG and now with symptomatic bradycardia and first degree block, therefore he requires pacemaker implantation so that beta ana therapy can continue for his CAD as well as BP control. Will arrange for implantation tomorrow. He ate breakfast this AM.
[2024-12-04] MEDS: AMLODIPINE 5MG TABLET 5 MG PO (09:57)
[2024-12-04 12:00] VITALS: BP 140/68; PULSE 54; PULSE 60; RESP 17; TEMP 36.6; O2SAT 98
--- NOTE | 2024-12-04 12:08 | EXP.ACUTE.PN ---
Subjective *Date: 12/04/24 *Time: 17:08 Interval history: Patient sitting up in chair, no acute distress noted. States that he feels well, slept okay. Denies chest pain, shortness of breath. Heart rate still remains bradycardic, 40s to 50s. Blood pressure remained stable. Cardiology consulted, plans for pacemaker tomorrow pending official echo. Medical Exam Vital signs and Labs for Last 24 Hours: Vital Signs Temp Pulse Pulse Resp BP BP Pulse Ox 12/04/24 09:00 12/04/24 08:00 50 L 12/04/24 08:00 99 12/04/24 08:00 98.0 F 50 L 16 150/90 H 99 12/04/24 07:00 12/04/24 05:00 12/04/24 04:00 45 L 12/04/24 04:00 97.7 F 46 L 18 149/79 H 96 12/04/24 03:00 12/04/24 01:00 12/04/24 00:00 55 L 12/04/24 00:00 97.7 F 58 L 16 176/83 H 98 12/03/24 23:00 12/03/24 21:00 12/03/24 20:00 52 L 12/03/24 20:00 97.7 F 40 L 16 153/80 H 95 12/03/24 19:54 12/03/24 18:52 12/03/24 17:00 12/03/24 16:07 50 L 12/03/24 16:00 97.7 F 43 L 16 150/76 H 97 12/03/24 15:00 12/03/24 13:35 42 L 18 153/98 H 97 12/03/24 13:27 98.1 F 97 H 18 165/71 H 12/03/24 12:56 O2 Del Method 12/04/24 09:00 Room Air 12/04/24 08:00 12/04/24 08:00 Room Air 12/04/24 08:00 12/04/24 07:00 Room Air 12/04/24 05:00 Room Air 12/04/24 04:00 12/04/24 04:00 Room Air 12/04/24 03:00 Room Air 12/04/24 01:00 Room Air 12/04/24 00:00 12/04/24 00:00 Room Air 12/03/24 23:00 Room Air 12/03/24 21:00 Room Air 12/03/24 20:00 12/03/24 20:00 Room Air 12/03/24 19:54 Room Air 12/03/24 18:52 Room Air 12/03/24 17:00 Room Air 12/03/24 16:07 12/03/24 16:00 Room Air 12/03/24 15:00 Room Air 12/03/24 13:35 Room Air 12/03/24 13:27 Room Air 12/03/24 12:56 Room Air Intake and Output 12/03/24 12/04/24 12/04/24 23:59 07:59 15:59 Intake Total 480 / 480 Output Total 0 / 0 Balance 0 / 0 480 / 480 Intake: Intake, Oral Amount 480 / 480 Output: Output, Urine Amount 0 / 0 Other: Number of Unmeasured Voids 2 Weight 69.944 kg Patient Weight 12/04/24 23:59 Weight 69.944 kg Laboratory Results - last 24 hr 12/03/24 11:05: NT-Pro-B Natriuret Pep 983 H, TSH 0.90, HCV Ab KIRK w/Rflx PCR Qn Negative, HIV Ag/Ab Combo Qual Negative 12/03/24 14:17: Troponin I 0.02 12/03/24 17:40: Troponin I 0.01 12/04/24 05:41: WBC 6.8, RBC 5.01, Hgb 14.9, Hct 44.2, MCV 88.2, MCH 29.7, MCHC 33.7, RDW 13.9, Plt Count 243, MPV 9.6, Neut % (Auto) 56.2, Lymph % (Auto) 26.3, [place] % (Auto) 8.7, Eos % (Auto) 7.9, Baso % (Auto) 0.6, Neut # (Auto) 3.8, Lymph # (Auto) 1.8, [place] # (Auto) 0.6, Eos # (Auto) 0.5 H, Baso # (Auto) 0.0, Sodium 138, Potassium 4.2 D, Chloride 105, Carbon Dioxide 23, Anion Gap 14.2, BUN 18 D, Creatinine 0.90 D, Estimated Creat Clear 64, Estimated GFR 82, Est GFR ( Amer) 100 D, Glucose 107 H, Calcium 9.5, Phosphorus 3.8, Magnesium 2.0, Total Bilirubin 1.1, AST 25, ALT 19, Alkaline Phosphatase 62, Total Protein 6.3, Albumin 3.9, Globulin 2.4, Albumin/Globulin Ratio 1.6, Triglycerides 124, Cholesterol 217 H, LDL Cholesterol Direct 126.01, VLDL Cholesterol 25, HDL Cholesterol 50, Cholesterol/HDL Ratio 4.3 H I & O for Labs for Last 24 Hours: Intake & Output 12/01/24 12/02/24 12/03/24 12/04/24 23:59 23:59 23:59 23:59 Intake Total 480 / 480 Output Total 0 / 0 Balance 0 / 0 480 / 480 Weight 71.668 kg 69.944 kg Constitutional: Present no acute distress, cooperative and somnolent Head: Present atraumatic Eyes: Present as per HPI ENT: Present normal exam Neck: Present normal inspection and full ROM Respiratory: Present CTA bilaterally, normal respiratory effort, able to speak in complete sentences and symmetric chest movement; Absent wheezes Cardiac: Present Regular Rhythm and Bradycardia GI: Present soft and normal bowel sounds; Absent distention or tenderness Rectal (male): Present deferred (male): Present deferred Extremities: Present normal inspection, normal capillary refill and edema (Trace bilateral lower extremities) Skin: Present intact and dry Neuro: Present alert, awake and oriented x 3 Assessment and Plan *Assessment and plan (1) Sinus bradycardia: Status: Acute Category: Medical Code(s): R00.1 - Bradycardia, unspecified (2) Coronary arteriosclerosis: Status: Acute Category: Medical Code(s): I25.10 - Atherosclerotic heart disease of [place] coronary artery without angina pectoris (3) History of coronary artery bypass graft: Status: Acute Category: Surgical Code(s): Z95.1 - Presence of aortocoronary bypass graft (4) Hypertensive disorder: Status: Acute Qualifiers: Hypertension type: unspecified Qualified Code(s): I10 - Essential (primary) hypertension Category: Medical Code(s): I10 - Essential (primary) hypertension (5) Hyperlipidemia: Status: Acute Qualifiers: Hyperlipidemia type: other hyperlipidemia Qualified Code(s): E78.49 - Other hyperlipidemia Category: Medical Code(s): E78.5 - Hyperlipidemia, unspecified (6) Abnormal electrocardiogram [ECG] [EKG]: Status: Acute Category: Medical Code(s): R94.31 - Abnormal electrocardiogram [ECG] [EKG] Plan Mr. Peña is a 74-year-old male who went to the emergency department today after a primary care appointment where he was found to be bradycardic. Patient was asymptomatic, denies chest pain, shortness of breath, abdominal pain, nausea, vomiting, dizziness. He does state that he has been more fatigued over the last 1 to 2 weeks. But also states that his PCP has been changing his medication around recently due to uncontrolled hypertension. His PCP, Ramu Cuellar, consulted Dr. Correia, cardiology, who stated that he should go to the emergency room for further workup. Workup was done in the emergency department no leukocytosis, no anemia, slight hypokalemia of 3.4, normal kidney function, creatinine 0.60. Glucose 95, slightly elevated BNP at 93. Serial troponin 0.02. TSH 0.90 within normal limits. Chest x-ray was performed and showed no acute findings. Cardiology was consulted and recommendation to admit patient for further cardiac workup, echo. I was consulted by the emergency room physician and agreed to admit the patient for further monitoring; plan of care as follows: #Sinus bradycardia #Coronary artery disease #History of CABG ?Patient heart rate consistently bradycardic, around 40. Patient is asymptomatic denies chest pain, shortness of breath, weakness. Patient placed on continuous telemetry, echo ordered. Patient did have echo in July 2024, that showed normal BiV systolic function, mild AI, mild TR, LVEF 60%. ?Patient does have a history of a CABG, follows with [facility] cardiology. ?Patient had EKG personally interpreted by myself showing sinus bradycardia, RBBB, ST depression leads V2. ?Cardiology consulted. Cardiology recommends pacemaker due to patient's CAD with prior CABG, beta-ana is a class I recommendation. Currently holding back beta-ana due to symptomatic bradycardia. Will plan for pacemaker implantation tomorrow so as to have patient on the correct medication regimen for his CAD and blood pressure. ?Serial troponins remain negative. ? Lab work continues to remain unremarkable, lipid panel shows cholesterol 217, LDL 126. Will await cardiology recommendations for statin therapy. #Hypertensive heart disease ?Patient has been seeing PCP frequently recently due to uncontrolled hypertension. Patient states systolic pressures have been anywhere from 160s to 180s. He has had multiple medication changes. Currently he is taking Avapro 300 mg daily, metoprolol succinate 50 mg daily. He was placed on metoprolol in July 2024, could be contributing to the bradycardia. Patient started on Norvasc 5 mg daily per cardiology. ?Renal duplex shows no evidence of hemodynamically significant renal artery stenosis. #BPH ? Continue tamsulosin 0.4 mg. #Hypothyroid ?TSH 0.90. Patient currently takes levothyroxine 25 mcg. Will continue. Full code Ambulate as tolerated Cardiac diet, n.p.o. after midnight VTE?patient had one-time dose Lovenox yesterday 12/03; patient ambulatory in room and in the halls regularly. No need for VTE prophylaxis.
[2024-12-04] MEDS: CALCIUM CARBONATE 500MG CHEWTAB 500 MG PO (12:40)
--- NOTE | 2024-12-04 15:43 | PC.NURSE ---
pt is A&Ox4. his heart rate has stayed in the upper 40s for most of the day. he has not had any needs today. the plan is to have a pacemaker placed tomorrow. call light within reach.
[2024-12-04 16:00] VITALS: BP 141/80; PULSE 50; PULSE 56; RESP 16; TEMP 36.6; O2SAT 95
[2024-12-04 20:00] VITALS: BP 176/90; PULSE 110; PULSE 74; RESP 16; TEMP 36.7; O2SAT 95
[2024-12-04] MEDS: MELATONIN 5MG TABLET 10 MG PO (20:48)
[2024-12-04] MEDS: PANTOPRAZOLE 40MG TABLET 40 MG PO (20:48)
--- NOTE | 2024-12-04 22:38 | ECG_ITS ---
APPROVED REPORT Exam: Resting ECG HR:64 bpm ECG Measurements Heart Rate 64 AXES OH 167 P 40 QRSd 146 QRS -30 QT 426 T 86 QTc 436 Conclusion SINUS RHYTHM POSSIBLE LEFT ATRIAL ENLARGEMENT [-0.1mV P-WAVE IN V1/V2] RIGHT BUNDLE BRANCH BLOCK [120+ ms QRS DURATION, UPRIGHT V1, 40+ ms S IN I/aVL/V4/V5/V6] SEPTAL MYOCARDIAL INFARCTION , OF INDETERMINATE AGE [40+ ms Q WAVE IN V1/V2] MODERATE T-WAVE ABNORMALITY, CONSIDER LATERAL ISCHEMIA [-0.1+ mV T-WAVE IN I/aVL/V5/V6] ABNORMAL ECG UNCONFIRMED REPORT Electronically signed by : Ugo Walker MD 12/09/2024 08:01:55
--- NOTE | 2024-12-04 22:38 | PC.NURSE ---
Provider notified. Nurse went over tele strip, noticed ST elevation that was noted on previous shift tele strip. Rate had increased, but rhythm still the same. Provider notified. Pt denied any chest pain. Pt was asymptomatic. Provider came to bedside, and order ekg anyways to make sure. Pt stated the only thing he felt was his stomach was very acidy. He stated he thinks its from the hospital water and the food. He stated he doesn't normally eat like this and that he drinks only well water. Pt stated he felt this all today nothings changed. Pt stated milk helps it. Pt was given milk and vanilla ice cream as requested.
[2024-12-05] VITALS (16 sets, daily range): BP systolic 110–149; BP diastolic 56–97; PULSE 9–91; RESP 16–20; TEMP 36.6–37.1; O2SAT 90–97; BMI 23.3
--- NOTE | 2024-12-05 | IR_ITS ---
APPROVED REPORT Patient Location: Inpatient Review Manager: AUSTIN Hoosk RT (R) PROCEDURES 1. Pocket formation for Permanent Pacemaker Placement. 2. Placement of an atrial sensing and pacing coil into the right atrial appendage. 3. Placement of a ventricular sensing and pacing coil in the right ventricular apex. 4. Permanent Pacemaker Placement. INDICATION Symptomatic Bradycardia Informed consent was obtained prior to the procedure. COMPLICATIONS NONE Estimated Blood Loss: LESS THAN 10 ML TECHNIQUE 1% Lidocaine with epinephrine used to anesthetized the left anterior aspect of the chest. Scalpel was used to make the initial cutaneous incision while electrocautery was used to dissect down tinto the fascia. The fascia was lifted off the pectoralis muscle and digitally manipulated creating a pocket for the pacemaker. The patient was then placed in Trendelenburg position and the subclavian vein was accessed twice via the Selinger technique, there are two wires in the vein. A 6 [place] sheath was placed under fluoroscopic guidance into the subclavian vein over one of the wires while keeping the other wire in place within the subclavian vein. The dilator was removed from the sheath. Using fluoroscopic guidance, the ventricular lead was placed into the right ventricular apex, screwed and secured into place. Electronic interrogation proved acceptable thresholds and voltage within the lead. Using 3-0 silk, the ventricular lead was then secured into place. Lead was secured to the facia using the 3-0 silk. Following this, the sheath was pealed away. An additional 6 [place] fresh sheath and dilator was placed over the existing wire. Using fluoroscopic guidance, the atrial lead was the placed into the right atrial appendage and screwed and secured in place. Electrical interrogation demonstrated acceptable thresholds and voltage number. The atrial lead was then secured into place using 3-0 silk. 1 gram of Ancef was used to flush the pocket. Following the pacemaker generator being secured to the fascia and in place, Monocryl was used to close the subcutaneous layers while sneha were used to close the cutaneous layer. A pressure dressing was placed and the patient was transferred to the postop holding area in stable condition for postoperative care. INTERROGATION Generator Model [facility]: [facility] [id number] Generator Serial number: [id number] Atrial lead model number: Tendril STS, 52cm, 2088TC Atrial lead serial number: [id number] P-wave: 5mV Impedance: 541 ohms Threshold: 1.0V@0.4ms Right Ventricular lead model number: [place] STS, 58cm, 2087TC Right Ventricular lead serial number: [id number] R-wave: 8mV Impedance: 680 ohms Threshold: 0.5V@0.4ms Pacing Parameters: Mode: DDDR Base/Max Track:60 ppm / 120 ppm No diaphragmatic stimulation at 10 volts. IMPRESSION 1. Successful pocket formation for Permanent Pacemaker Placement. 2. Successful placement of an atrial sensing and pacing coil into the right atrial appendage. 3. Successful placement of a ventricular sensing and pacing coil in the right ventricular apex. 4. Successful permanent Pacemaker Placement. PLAN 1. Postop wound care. Electronically signed by : Wellington Correia MD 12/06/2024 10:39:50
[2024-12-05] MEDS: ALUMINUM/MAGNESIUM/SIMETHICONE 30ML UDC 30 ML PO (00:33)
--- NOTE | 2024-12-05 05:24 | PC.NURSE ---
Addendum entered by Tiffanie Raza RN 12/05/24 05:25: RA. Pt denied any sob or chest pain. Pt c/o of acid reflux, provider notified, see MAR for new order. Pt stated milk of mag relieved the battery acid feeling in his stomach . Pt pending pacemaker today. Plan of care ongoing. Original Note: NPo at midnight. v/s, ox4. Pt
[2024-12-05] MEDS: LEVOTHYROXINE 25MCG (0.025MG) TAB 25 MCG PO (06:09)
[2024-12-05 06:10] LABS: Hematocrit 47.1 % (42.0-52.0); Hemoglobin 15.5 g/dL (14.1-18.0); Immature Granulocytes % 0.5 %; Mean Corpuscular HGB Conc 32.9 g/dL (31.8-35.4); Mean Corpuscular Hemoglobin 28.8 pg (27.0-31.2); Mean Corpuscular Volume 87.5 fl (80-94); Nucleated Red Blood Cells % 0 %; Platelet Count 253 K/mm3 (142-424); Red Blood Count 5.38 M/mm3 (4.60-6.20); Red Cell Distribution Width-SD 43.6 fL; White Blood Count 8.9 K/mm3 (4.8-10.8)
[2024-12-05 06:27] LABS: Alanine Aminotransferase 22 U/L (12-78); Albumin Level 4.3 g/dl (3.5-5.0); Albumin/Globulin Ratio 1.7 (1.1-1.8); Alkaline Phosphatase 63 U/L (38-126); Anion Gap 14.0 mEq/L (5-15); Aspartate Amino Transferase 26 U/L (17-59); Bilirubin,Total 1.1 mg/dl (0.2-1.3); Blood Urea Nitrogen 26 mg/dl (9-20); Calcium 10.4 mg/dl (8.4-10.2); Carbon Dioxide 21 mmol/L (22.0-30.0); Chloride 105 mmol/L (98-107); Creatinine Clearance Estimated 64 mL/min (50-200); Creatinine,Serum 0.90 mg/dl (0.66-1.25); Estimated Glomerular Filt Rate 82 ml/min (>60); GFR (African American) 100 ML/MIN (>60); Globulin 2.5 g/dL (1.3-3.2); Glucose 131 mg/dl (74-100); Potassium 4.0 mmoL/L (3.5-5.1); Sodium 136 mmol/L (136-145); Total Protein,Serum 6.8 g/dl (6.3-8.2)
[2024-12-05] MEDS: TAMSULOSIN 0.4MG CAPSULE 0.4 MG PO (07:54)
[2024-12-05] MEDS: AMLODIPINE 5MG TABLET 5 MG PO (07:54)
[2024-12-05] MEDS: NICOTINE 21MG/24HR PATCH 21 MG TD (07:55)
--- NOTE | 2024-12-05 10:55 | EXP.ANES.CKL ---
[facility] Disclaimer: The information contained in this section may have been updated after the patient was seen, as this information can be updated by other users. Medical History (Updated 12/03/24 @ 16:37 by Gris Ramírez APRN) Osteoarthritis Migraine Encounter for pre-operative cardiovascular clearance Abnormal electrocardiogram [ECG] [EKG] Coronary artery disease Family history of coronary artery bypass graft surgery Sleep apnea Hypothyroid Surgical History History of lithotripsy History of inguinal hernia repair History of heart bypass surgery Hx of tympanostomy Family History Other Family history of heart disease Social History Smoking Status: Never smoker alcohol intake: never substance use type: denies use current occupational status: retired Travel in the last 8 weeks?: None adopted: Yes foster care: No household members: none housing: house lives independently: Yes marital status: single education level: high school caffeine: Yes special vel needs: No agree to transfusion: No do you feel safe at home: Yes victim of physical abuse: No victim of emotional abuse: No victim of sexual abuse: No would you like helpful sources: No [facility] Anesthesia Checklist Patient Identification Patient Identification: Arm Band Structural Data Admitted From: Inpatient Planned Operative Procedure/s: Placement of Pacemaker. Consent for Planned Operative Procedure(s) Verified: Yes Verified Documents: Surgical Consent, History and Physical and Cardiac Clearance NPO Status Verified Time NPO: 00:00 Additional verifications Patient : No Anesthesia Reactions: No Hx Blood Transfusions: No Blood Transfusion Reaction: No Previous Colonoscopy: Yes Airway Assessment Mallampati Score:: Class III C-Spine Mobility Assessed: Yes TMJ Mobility Assessed: Yes Dentition: Partials Neurological Assessment Level of Consciousness: Awake, Alert, Appropriate and Follows Commands Hx Seizures: No Numbness or tingling in extremities: No Anesthesia Plan Anesthesia Risk discussed: Yes ASA Class: III Anesthesia Type: MAC Preoperative Comments Pre-Operative Comments: Bradycardia as low as 39. Hypothyroid. Metoprolol. MABEL. CAD. Mi 2009. Triple bypass 2016.
[2024-12-05 13:11] LABS: Cortisol,AM 11.4 ug/dL (6.2-19.4)
--- NOTE | 2024-12-05 14:21 | EXP.CARD.PN ---
Subjective Subjective Date: 12/05/24 Time: 08:00 Principal diagnosis: Bradycardia Interval history: 74-year-old white male in bed sleeping in no acute distress. Plan is for pacemaker placement today. Exam Data for Last 24 hours Vital signs and Labs for Last 24 Hours: Temp Pulse Resp BP Pulse Ox O2 Del Method 98.1 F 55 L 16 142/74 H 94 L Room Air 12/05/24 12:00 12/05/24 12:00 12/05/24 12:00 12/05/24 12:00 12/05/24 12:00 12/05/24 11:00 Laboratory Results - last 24 hr 12/04/24 07:15: Cortisol AM Sample 11.4 12/05/24 05:28: WBC 8.9 D, RBC 5.38, Hgb 15.5, Hct 47.1, MCV 87.5, MCH 28.8, MCHC 32.9, RDW 13.6, Plt Count 253, MPV 9.3, Neut % (Auto) 66.5, Lymph % (Auto) 21.4, [place] % (Auto) 7.4, Eos % (Auto) 3.6, Baso % (Auto) 0.6, Neut # (Auto) 5.9, Lymph # (Auto) 1.9, [place] # (Auto) 0.7, Eos # (Auto) 0.3, Baso # (Auto) 0.1, Sodium 136, Potassium 4.0, Chloride 105, Carbon Dioxide 21 L, Anion Gap 14.0, BUN 26 H D, Creatinine 0.90, Estimated Creat Clear 64, Estimated GFR 82, Est GFR ( Amer) 100, Glucose 131 H D, Calcium 10.4 H, Total Bilirubin 1.1, AST 26, ALT 22, Alkaline Phosphatase 63, Total Protein 6.8, Albumin 4.3 D, Globulin 2.5, Albumin/Globulin Ratio 1.7 I & O for Last 24 hours: Intake & Output 12/03/24 12/04/24 12/05/24 12/06/24 11:59 11:59 11:59 11:59 Intake Total 480 / 480 870 / 870 Output Total 0 / 0 Balance 480 / 480 870 / 870 Weight 155 lb 154 lb 3.2 oz 154 lb 3.202 oz Progress Note: A&P Assessment and plan (1) Sinus bradycardia: Status: Acute (2) Coronary arteriosclerosis: Status: Acute (3) History of coronary artery bypass graft: Status: Acute (4) Hypertensive disorder: Status: Acute (5) Hyperlipidemia: Status: Acute (6) Abnormal electrocardiogram [ECG] [EKG]: Status: Acute (7) Hypertensive heart disease: Status: Acute (8) Coronary artery disease: Status: Acute (9) BPH (benign prostatic hyperplasia): Status: Acute (10) Hypothyroid: Status: Acute Assessment and Plan Assessment and Plan for All Diagnoses:: 1. Sinus Bradycardia -possibly due to metoprolol, will hold and follow HR -Troponins normal -No syncope or near syncope -use glucagon or dopamine if symptomatic overnight 2. CAD with history of CABG -[facility], 2022, clinically stable -Troponins normal 3. Elevated BNP -Clinically no evidence of CHF -Check echo, preliminary EF is normal 4. Hypertension -Historically poorly controlled -Continue irbesartan -Add HCTZ -renal duplex unremarkable this admission -add norvasc for now 5. Hyperlipidemia -Check lipids -Historically intolerant to statins. May need to consider Repatha 6. Hypokalemia resolved now at 4.2 Proceed with dual-chamber pacemaker placement today. Resume metoprolol therapy tomorrow.
--- NOTE | 2024-12-05 14:45 | XR_ITS ---
FINAL REPORT CLINICAL HISTORY: Confirm pacemaker/AID placement COMPARISON: 12/03/2024 FINDINGS: CHEST 1 VIEW The patient is status post CABG. There is a dual-lead left subclavian pacer device present. There is no evidence of pneumothorax. IMPRESSION: Left-sided pacer placed without pneumothorax or acute lung disease. Reviewed, Interpreted and Dictated by Angy Manuel MD Transcribed by Lola Bates Authenticated and [facility]
[2024-12-05] MEDS: LIDOCAINE 1% W/EPI 1:100,000 20ML VIAL 20 ML SUBCUT (15:26)
[2024-12-05] MEDS: LIDOCAINE 1% W/EPI 1:100,000 20ML VIAL 20 ML SQ (15:39)
--- NOTE | 2024-12-05 15:41 | EXP.ACUTE.PN ---
Subjective *Date: 12/05/24 *Time: 15:41 Interval history: Patient up in chair this morning. States he feels well. Awaiting pacemaker today. Heart rate overnight appears to be around 50's. Patient currently n.p.o. awaiting procedure. Medical Exam Vital signs and Labs for Last 24 Hours: Vital Signs Temp Pulse Pulse Resp BP Pulse Ox O2 Del Method 12/05/24 14:55 62 63 18 127/69 95 Room Air 12/05/24 14:45 68 18 137/71 94 L 12/05/24 12:00 98.1 F 55 L 16 142/74 H 94 L 12/05/24 11:00 Room Air 12/05/24 09:05 Room Air 12/05/24 08:00 Room Air 12/05/24 07:21 98.1 F 57 L 16 145/77 H 97 Room Air 12/05/24 06:12 Room Air 12/05/24 04:03 Room Air 12/05/24 04:00 80 12/05/24 04:00 98.7 F 81 18 147/97 H 96 Room Air 12/05/24 03:00 Room Air 12/05/24 00:20 Room Air 12/05/24 00:00 60 12/05/24 00:00 98.1 F 65 18 149/76 H 96 Room Air 12/04/24 23:00 Room Air 12/04/24 21:00 Room Air 12/04/24 20:00 110 H 12/04/24 20:00 Room Air 12/04/24 20:00 98.1 F 74 16 176/90 H 95 Room Air 12/04/24 18:44 Room Air 12/04/24 17:00 Room Air 12/04/24 16:00 50 L 12/04/24 16:00 98 F 56 L 16 141/80 H 95 Intake and Output 12/04/24 12/05/24 12/05/24 23:59 07:59 15:59 Intake Total 270 / 1350 240 / 240 Balance 270 / 1350 240 / 240 Intake: Intake, Oral Amount 270 / 1350 240 / 240 Other: Weight 69.944 kg Patient Weight 12/05/24 23:59 Weight 69.944 kg Laboratory Results - last 24 hr 12/04/24 07:15: Cortisol AM Sample 11.4 12/05/24 05:28: WBC 8.9 D, RBC 5.38, Hgb 15.5, Hct 47.1, MCV 87.5, MCH 28.8, MCHC 32.9, RDW 13.6, Plt Count 253, MPV 9.3, Neut % (Auto) 66.5, Lymph % (Auto) 21.4, [place] % (Auto) 7.4, Eos % (Auto) 3.6, Baso % (Auto) 0.6, Neut # (Auto) 5.9, Lymph # (Auto) 1.9, [place] # (Auto) 0.7, Eos # (Auto) 0.3, Baso # (Auto) 0.1, Sodium 136, Potassium 4.0, Chloride 105, Carbon Dioxide 21 L, Anion Gap 14.0, BUN 26 H D, Creatinine 0.90, Estimated Creat Clear 64, Estimated GFR 82, Est GFR ( Amer) 100, Glucose 131 H D, Calcium 10.4 H, Total Bilirubin 1.1, AST 26, ALT 22, Alkaline Phosphatase 63, Total Protein 6.8, Albumin 4.3 D, Globulin 2.5, Albumin/Globulin Ratio 1.7 I & O for Labs for Last 24 Hours: Intake & Output 12/02/24 12/03/24 12/04/24 12/05/24 23:59 23:59 23:59 23:59 Intake Total 1110 / 1350 240 / 240 Output Total 0 / 0 Balance 0 / 0 1110 / 1350 240 / 240 Weight 71.668 kg 69.944 kg 69.944 kg Constitutional: Present no acute distress, cooperative and somnolent Head: Present atraumatic Eyes: Present as per HPI ENT: Present normal exam Neck: Present normal inspection and full ROM Respiratory: Present CTA bilaterally, normal respiratory effort, able to speak in complete sentences and symmetric chest movement; Absent wheezes Cardiac: Present Regular Rhythm and Bradycardia GI: Present soft and normal bowel sounds; Absent distention or tenderness Rectal (male): Present deferred (male): Present deferred Extremities: Present normal inspection, normal capillary refill and edema (Trace bilateral lower extremities) Skin: Present intact and dry Neuro: Present alert, awake and oriented x 3 Assessment and Plan *Assessment and plan (1) Sinus bradycardia: Status: Acute Category: Medical Code(s): R00.1 - Bradycardia, unspecified (2) Coronary arteriosclerosis: Status: Acute Category: Medical Code(s): I25.10 - Atherosclerotic heart disease of [place] coronary artery without angina pectoris (3) History of coronary artery bypass graft: Status: Acute Category: Surgical Code(s): Z95.1 - Presence of aortocoronary bypass graft (4) Hypertensive disorder: Status: Acute Qualifiers: Hypertension type: unspecified Qualified Code(s): I10 - Essential (primary) hypertension Category: Medical Code(s): I10 - Essential (primary) hypertension (5) Hyperlipidemia: Status: Acute Qualifiers: Hyperlipidemia type: other hyperlipidemia Qualified Code(s): E78.49 - Other hyperlipidemia Category: Medical Code(s): E78.5 - Hyperlipidemia, unspecified (6) Abnormal electrocardiogram [ECG] [EKG]: Status: Acute Category: Medical Code(s): R94.31 - Abnormal electrocardiogram [ECG] [EKG] Plan Mr. Peña is a 74-year-old male who went to the emergency department today after a primary care appointment where he was found to be bradycardic. Patient was asymptomatic, denies chest pain, shortness of breath, abdominal pain, nausea, vomiting, dizziness. He does state that he has been more fatigued over the last 1 to 2 weeks. But also states that his PCP has been changing his medication around recently due to uncontrolled hypertension. His PCP, Ramu Cuellar, consulted Dr. Correia, cardiology, who stated that he should go to the emergency room for further workup. Workup was done in the emergency department no leukocytosis, no anemia, slight hypokalemia of 3.4, normal kidney function, creatinine 0.60. Glucose 95, slightly elevated BNP at 93. Serial troponin 0.02. TSH 0.90 within normal limits. Chest x-ray was performed and showed no acute findings. Cardiology was consulted and recommendation to admit patient for further cardiac workup, echo. I was consulted by the emergency room physician and agreed to admit the patient for further monitoring; plan of care as follows: #Sinus bradycardia #Coronary artery disease #History of CABG ?Patient heart rate consistently bradycardic, around 40. Patient is asymptomatic denies chest pain, shortness of breath, weakness. Patient placed on continuous telemetry, echo ordered. Patient did have echo in July 2024, that showed normal BiV systolic function, mild AI, mild TR, LVEF 60%. ?Patient does have a history of a CABG, follows with [facility] cardiology. ?Patient had EKG personally interpreted by myself showing sinus bradycardia, RBBB, ST depression leads V2. ?Cardiology consulted. Cardiology recommends pacemaker due to patient's CAD with prior CABG, beta-ana is a class I recommendation. Currently holding back beta-ana due to symptomatic bradycardia. Patient will have pacemaker placed today, will monitor patient overnight and hopefully discharge home tomorrow. Assessment of medications before discharge. ? Lab work continues to remain unremarkable, lipid panel shows cholesterol 217, LDL 126. Will await cardiology recommendations for statin therapy. #Hypertensive heart disease ?Patient has been seeing PCP frequently recently due to uncontrolled hypertension. Patient states systolic pressures have been anywhere from 160s to 180s. He has had multiple medication changes. Currently he is taking Avapro 300 mg daily, metoprolol succinate 50 mg daily. He was placed on metoprolol in July 2024, could be contributing to the bradycardia. Patient started on Norvasc 5 mg daily per cardiology. ?Renal duplex shows no evidence of hemodynamically significant renal artery stenosis. #BPH ? Continue tamsulosin 0.4 mg. #Hypothyroid ?TSH 0.90. Patient currently takes levothyroxine 25 mcg. Will continue. Full code Ambulate as tolerated N.p.o. VTE?patient had one-time dose Lovenox 12/03; patient ambulatory in room and in the halls regularly. No need for VTE prophylaxis.
--- NOTE | 2024-12-05 17:23 | PC.NURSE ---
VS stable, pacemaker site clean dry and intact, no hematoma noted. Lung sounds clear. Heart rate improved after pacemaker insertion.
[2024-12-05] MEDS: MELATONIN 5MG TABLET 10 MG PO (21:05)
[2024-12-05] MEDS: PANTOPRAZOLE 40MG TABLET 40 MG PO (21:05)
[2024-12-05] MEDS: OXYCODONE 5MG W/APAP 325MG TABLET 1 EACH PO (23:53)
[2024-12-06] VITALS: BP 134/81; PULSE 79; PULSE 90; RESP 16; TEMP 36.6; O2SAT 96
--- NOTE | 2024-12-06 02:04 | PC.NURSE ---
Pt AOx4, pleasant. Reported some pain in left shoulder earlier in the shift that was resolved with paihn medication. Dressing on L chest is c/d/i. Pt running paced rhythm on tele. Currently resting in bed with eyes closed. Respirations even and unlabored. Bed is low, locked, and call light is in reach.
[2024-12-06 04:00] VITALS: BP 151/83; PULSE 82; PULSE 88; RESP 17; TEMP 36.4; O2SAT 96; BMI 22.7
[2024-12-06] MEDS: LEVOTHYROXINE 25MCG (0.025MG) TAB 25 MCG PO (06:06)
--- OUTSIDE RECORDS SUMMARY | 2024-12-06 07:55 | XMS_ITS | Clinical Summary ---
Author Organization Healthcare Address [address] [id number] Care Team Providers Care Diesel Plant Operator Name Role Phone Ugo Walker MD Primary Care Provider [phone] Family History Medical History Relation Name Comments [...] Vaccine s (1 - Tdap) 12/29/2018 12/28/2018 [id number] Vaccine (2 - 20 24-25 season) 2024 [...] topic Insurance [place] Care Teams Diesel Plant Operator Relationship Specialty Start Date End Date Ugo Walker MD [address] [place] [address] PCP - General 10/02/20
[2024-12-06 08:00] VITALS: BP 151/76; PULSE 85; PULSE 87; RESP 16; O2SAT 97
[2024-12-06] MEDS: TAMSULOSIN 0.4MG CAPSULE 0.4 MG PO (08:36)
[2024-12-06] MEDS: NICOTINE 21MG/24HR PATCH 21 MG TD (08:37)
[2024-12-06 08:51] LABS: Hematocrit 45.9 % (42.0-52.0); Hemoglobin 15.2 g/dL (14.1-18.0); Immature Granulocytes % 0.6 %; Mean Corpuscular HGB Conc 33.1 g/dL (31.8-35.4); Mean Corpuscular Hemoglobin 29.1 pg (27.0-31.2); Mean Corpuscular Volume 87.9 fl (80-94); Nucleated Red Blood Cells % 0 %; Platelet Count 236 K/mm3 (142-424); Red Blood Count 5.22 M/mm3 (4.60-6.20); Red Cell Distribution Width-SD 44.6 fL; White Blood Count 10.1 K/mm3 (4.8-10.8)
[2024-12-06 09:04] LABS: Alanine Aminotransferase 21 U/L (12-78); Albumin Level 4.1 g/dl (3.5-5.0); Albumin/Globulin Ratio 1.6 (1.1-1.8); Alkaline Phosphatase 60 U/L (38-126); Anion Gap 19.3 mEq/L (5-15); Aspartate Amino Transferase 26 U/L (17-59); Bilirubin,Total 1.2 mg/dl (0.2-1.3); Blood Urea Nitrogen 26 mg/dl (9-20); Calcium 9.8 mg/dl (8.4-10.2); Carbon Dioxide 19 mmol/L (22.0-30.0); Chloride 101 mmol/L (98-107); Creatinine Clearance Estimated 57 mL/min (50-200); Creatinine,Serum 1.10 mg/dl (0.66-1.25); Estimated Glomerular Filt Rate 65 ml/min (>60); GFR (African American) 79 ML/MIN (>60); Globulin 2.5 g/dL (1.3-3.2); Glucose 159 mg/dl (74-100); Potassium 4.3 mmoL/L (3.5-5.1); Sodium 135 mmol/L (136-145); Total Protein,Serum 6.6 g/dl (6.3-8.2)
--- NOTE | 2024-12-06 10:55 | P.PN_ITS ---
Subjective Subjective Date: 12/06/24 Time: 10:56 Principal diagnosis: Bradycardia Interval history: 74-year-old white male in bed in no acute distress. Multiple questions answered regarding pacemaker. Plan would be to resume his home medications of irbesartan and metoprolol at discharge. Exam Data for Last 24 hours Vital signs and Labs for Last 24 Hours: Temp Pulse Resp BP Pulse Ox O2 Del Method O2 Flow Rate 97.5 F L 87 16 151/76 H 97 Room Air 3 12/06/24 04:00 12/06/24 08:00 12/06/24 08:00 12/06/24 08:00 12/06/24 08:00 12/06/24 08:00 12/06/24 06:51 Laboratory Results - last 24 hr 12/04/24 07:15: Cortisol AM Sample 11.4 12/06/24 08:45: WBC 10.1, RBC 5.22, Hgb 15.2, Hct 45.9, MCV 87.9, MCH 29.1, MCHC 33.1, RDW 13.9, Plt Count 236, MPV 9.0, Neut % (Auto) 67.6, Lymph % (Auto) 18.1, [place] % (Auto) 10.1 H, Eos % (Auto) 3.3, Baso % (Auto) 0.3, Neut # (Auto) 6.8, Lymph # (Auto) 1.8, [place] # (Auto) 1.0, Eos # (Auto) 0.3, Baso # (Auto) 0.0, Sodium 135 L, Potassium 4.3, Chloride 101, Carbon Dioxide 19 L, Anion Gap 19.3 H , BUN 26 H, Creatinine 1.10 D, Estimated Creat Clear 57, Estimated GFR 65, Est GFR ( Amer) 79 D, Glucose 159 H, Calcium 9.8, Total Bilirubin 1.2, AST 26, ALT 21, Alkaline Phosphatase 60, Total Protein 6.6, Albumin 4.1, Globulin 2.5, Albumin/Globulin Ratio 1.6 I & O for Last 24 hours: Intake & Output 12/03/24 12/04/24 12/05/24 12/06/24 11:59 11:59 11:59 11:59 Intake Total 480 / 480 870 / 870 600 / 600 Output Total 0 / 0 1300 / 1300 Balance 480 / 480 870 / 870 -700 / -700 Weight 155 lb 154 lb 3.2 oz 154 lb 3.202 oz 149 lb 14.4 oz Constitutional Constitutional: no acute distress *Routine Respiratory Exam Respiratory: Present CTA bilaterally *Routine Cardiovascular Exam Cardiovascular: Present RRR Progress Note: A&P Assessment and plan (1) Sinus bradycardia: Status: Acute (2) Coronary arteriosclerosis: Status: Acute (3) History of coronary artery bypass graft: Status: Acute (4) Hypertensive disorder: Status: Acute (5) Hyperlipidemia: Status: Acute (6) Abnormal electrocardiogram [ECG] [EKG]: Status: Acute (7) Hypertensive heart disease: Status: Acute (8) Coronary artery disease: Status: Acute (9) BPH (benign prostatic hyperplasia): Status: Acute (10) Hypothyroid: Status: Acute Assessment and Plan Assessment and Plan for All Diagnoses:: 1. Sinus Bradycardia -Troponins normal -No syncope or near syncope -Status post dual-chamber pacemaker implantation 2. CAD with history of CABG -[facility], 2022, clinically stable -Troponins normal 3. Elevated BNP -Clinically no evidence of CHF -Echo EF is normal 4. Hypertension -Historically poorly controlled -Continue irbesartan -Add HCTZ -renal duplex unremarkable this admission 5. Hyperlipidemia -LDL 126 -Historically intolerant to statins. May need to consider Repatha 6. Hypokalemia resolved now at 4.2 Clinically stable for discharge home. Home medication recommendations: Irbesartan 300 mg daily Hydrochlorothiazide 25 mg daily (new) Metoprolol succinate 50 mg daily Follow-up in our office in 1 to 2 weeks for staple removal.
[2024-12-06 11:45] VITALS: BP 125/81; PULSE 67; RESP 16; TEMP 36.4; O2SAT 96
[2024-12-06] MEDS: IRBESARTAN 150MG TAB 150 MG PO (11:49)
[2024-12-06] MEDS: METOPROLOL SUCCINATE XL 25MG TABLET 25 MG PO (11:50)
--- NOTE | 2024-12-06 12:35 | P.DS_ITS ---
General Admission date:: 12/03/24 HPI HPI HPI: Mr. Peña is a 74-year-old male who was sent to the emergency room by his primary care provider after a routine visit for hypertension. He states that he has had a few medicine changes here recently related to his elevated blood pressure. He also follows with cardiology here at [facility]. He was found to have a low heart rate in the office, around 40. EKG was obtained and appeared abnormal per the patient. He was sent to the emergency room for cardiology consult Dr. Correia recommended admission for further workup and possible pacemaker. Hospital Course Hospital Course Hospital Course: Mr. Peña is a 74-year-old male who went to the emergency department after a primary care appointment where he was found to be bradycardic. Patient was asymptomatic, denies chest pain, shortness of breath, abdominal pain, nausea, vomiting, dizziness. He does state that he has been more fatigued over the last 1 to 2 weeks. But also states that his PCP has been changing his medication around recently due to uncontrolled hypertension. His PCP, Minda Cuellar, consulted Dr. Correia, cardiology, who stated that he should go to the emergency room for further workup. Workup was done in the emergency department no leukocytosis, no anemia, slight hypokalemia of 3.4, normal kidney function, creatinine 0.60. Glucose 95, slightly elevated BNP at 93. Serial troponin 0.02. TSH 0.90 within normal limits. Chest x-ray was performed and showed no acute findings. Cardiology was consulted and recommendation to admit patient for further cardiac workup, echo. I was consulted by the emergency room physician and agreed to admit the patient for further monitoring; plan of care as follows: #Symptomatic bradycardia #Coronary artery disease #History of CABG ? Patient heart rate consistently bradycardic, around 40. Patient is asymptomatic denies chest pain, shortness of breath, weakness. Patient's metoprolol succinate 50 mg was held, but patient continued to be bradycardic with intermittent symptoms. ? ECHO that showed normal BiV systolic function, mild AI, mild TR, LVEF 60%. ? Patient does have a history of a CABG, follows with [facility] cardiology. ? Patient had EKG personally interpreted by myself showing sinus bradycardia, RBBB, ST depression leads V2. ? Cardiology consulted, s/p dual-chamber pacemaker implantation. Patient did go into transient asystole during procedure, but otherwise tolerated procedure well. Monitored overnight on telemetry, no acute events and patient asymptomatic. Patient tolerated procedure well. Heart rate currently in the 67. ? Cardiology recommends continue metoprolol succinate 50 mg, follow-up within 2 weeks. #Hypertensive heart disease ? Patient has been seeing PCP frequently recently due to uncontrolled hypertension. Patient states systolic pressures have been anywhere from 160s to 180s. He has had multiple medication changes. Currently he is taking irbesartan 300 mg daily, metoprolol succinate 50 mg daily. Started hydrochlorothiazide 25 mg, blood pressure stable 125/81. ? Renal duplex shows no evidence of hemodynamically significant renal artery stenosis. #BPH ? Continue tamsulosin 0.4 mg. #Hypothyroid ? TSH 0.90. Patient currently takes levothyroxine 25 mcg. Total time spent on discharge: 32 minutes on chart review, counseling, documentation, and direct care with patient. Exam Data for Last 24 hours Vital signs and Labs for Last 24 Hours: Temp Pulse Resp BP Pulse Ox O2 Del Method O2 Flow Rate 97.5 F L 67 16 125/81 96 Room Air 3 12/06/24 11:45 12/06/24 11:45 12/06/24 11:45 12/06/24 11:45 12/06/24 11:45 12/06/24 11:45 12/06/24 06:51 Laboratory Results - last 24 hr 12/04/24 07:15: Cortisol AM Sample 11.4 12/06/24 08:45: WBC 10.1, RBC 5.22, Hgb 15.2, Hct 45.9, MCV 87.9, MCH 29.1, MCHC 33.1, RDW 13.9, Plt Count 236, MPV 9.0, Neut % (Auto) 67.6, Lymph % (Auto) 18.1, [place] % (Auto) 10.1 H, Eos % (Auto) 3.3, Baso % (Auto) 0.3, Neut # (Auto) 6.8, Lymph # (Auto) 1.8, [place] # (Auto) 1.0, Eos # (Auto) 0.3, Baso # (Auto) 0.0, Sodium 135 L, Potassium 4.3, Chloride 101, Carbon Dioxide 19 L, Anion Gap 19.3 H , BUN 26 H, Creatinine 1.10 D, Estimated Creat Clear 57, Estimated GFR 65, Est GFR ( Amer) 79 D, Glucose 159 H, Calcium 9.8, Total Bilirubin 1.2, AST 26, ALT 21, Alkaline Phosphatase 60, Total Protein 6.6, Albumin 4.1, Globulin 2.5, Albumin/Globulin Ratio 1.6 I & O for Last 24 hours: Intake & Output 12/03/24 12/04/24 12/05/24 12/06/24 23:59 23:59 23:59 23:59 Intake Total 1110 / 1350 480 / 480 360 / 360 Output Total 0 / 0 900 / 900 750 / 750 Balance 0 / 0 1110 / 1350 -420 / -420 -390 / -390 Weight 71.668 kg 69.944 kg 69.944 kg 67.993 kg Constitutional Constitutional: no acute distress *Routine HEENT Exam Head: Present normocephalic Eye: Present EOMI and PERRL ENT: Present mucous membranes moist *Routine Neck Exam Neck: Present supple; Absent lymphadenopathy *Routine Respiratory Exam Respiratory: Present CTA bilaterally *Routine Cardiovascular Exam Cardiovascular: Present RRR *Routine Abdominal Exam Abdominal: Present soft and normoactive bowel sounds; Absent tenderness *Routine Extremities Exam Extremities: Absent cyanosis, clubbing or edema *Routine Skin Exam Skin: Present warm; Absent rash *Routine Neurological Exam Neurological: Present alert and oriented X3 Results Data Completed and Pending Labs on day of discharge: Labs from last 24 hours 12/06/24 12/04/24 08:45 07:15 WBC 10.1 RBC 5.22 Hgb 15.2 Hct 45.9 MCV 87.9 MCH 29.1 MCHC 33.1 RDW 13.9 Plt Count 236 MPV 9.0 Neut % (Auto) 67.6 Lymph % (Auto) 18.1 [place] % (Auto) 10.1 H Eos % (Auto) 3.3 Baso % (Auto) 0.3 Neut # (Auto) 6.8 Lymph # (Auto) 1.8 [place] # (Auto) 1.0 Eos # (Auto) 0.3 Baso # (Auto) 0.0 Sodium 135 L Potassium 4.3 Chloride 101 Carbon Dioxide 19 L Anion Gap 19.3 H BUN 26 H Creatinine 1.10 D Estimated Creat Clear 57 Estimated GFR 65 Est GFR ( Amer) 79 D Glucose 159 H Calcium 9.8 Total Bilirubin 1.2 AST 26 ALT 21 Alkaline Phosphatase 60 Total Protein 6.6 Albumin 4.1 Globulin 2.5 Albumin/Globulin Ratio 1.6 Cortisol AM Sample 11.4 DS: Diagnosis Discharge Diagnosis (1) Sinus bradycardia: Status: Acute Code(s): R00.1 - Bradycardia, unspecified (2) Coronary arteriosclerosis: Status: Acute Code(s): I25.10 - Atherosclerotic heart disease of [place] coronary artery without angina pectoris (3) History of coronary artery bypass graft: Status: Acute Code(s): Z95.1 - Presence of aortocoronary bypass graft (4) Hypertensive disorder: Status: Acute Code(s): I10 - Essential (primary) hypertension Qualifiers: Hypertension type: unspecified Qualified Code(s): I10 - Essential (primary) hypertension (5) Hyperlipidemia: Status: Acute Code(s): E78.5 - Hyperlipidemia, unspecified Qualifiers: Hyperlipidemia type: other hyperlipidemia Qualified Code(s): E78.49 - Other hyperlipidemia (6) Abnormal electrocardiogram [ECG] [EKG]: Status: Acute Code(s): R94.31 - Abnormal electrocardiogram [ECG] [EKG] (7) Hypertensive heart disease: Status: Acute Code(s): I11.9 - Hypertensive heart disease without heart failure Qualifiers: Heart failure presence: unspecified whether heart failure present Qualified Code(s): I11.9 - Hypertensive heart disease without heart failure (8) Coronary artery disease: Status: Acute Code(s): I25.10 - Atherosclerotic heart disease of [place] coronary artery without angina pectoris Qualifiers: Associated angina: without angina Coronary Disease-Associated Artery/Lesion type: [place] artery [place] vs. transplanted heart: [place] heart Qualified Code(s): I25.10 - Atherosclerotic heart disease of [place] coronary artery without angina pectoris (9) BPH (benign prostatic hyperplasia): Status: Acute Code(s): N40.0 - Benign prostatic hyperplasia without lower urinary tract symptoms (10) Hypothyroid: Status: Acute Code(s): E03.9 - Hypothyroidism, unspecified Meds Home Medications and Allergies Home Medications ?Medication ?Instructions ?Recorded ?Confirmed ?Type levothyroxine 25 mcg tablet 25 mcg PO DAILY 30 days #3 0 tabs 04/16/18 12/03/24 History tamsulosin 0.4 mg capsule 0.4 mg PO DAILY 09/26/22 History metoprolol succinate 50 mg 50 mg PO DAILY 12/03/24 History tablet,extended release 24 hr hydrochlorothiazide 25 mg tablet 25 mg PO DAILY 30 day s #30 tabs 12/06/24 Rx irbesartan 150 mg tablet 150 mg PO DAILY 30 days #30 tabs 12/06/24 Rx New Prescriptions to Start Prescriptions: hydrochlorothiazide Dennis Randolph irbesartan Dennis Randolph Allergies Allergy/AdvReac Type Severity Reaction Status Date / Time codeine (CODEINE) Allergy Unknown NA-HALLUCIN Verified 07/31/24 08:59 ATIONS paroxetine (PAROXETINE) Allergy Unknown Drowsy Verified 07/31/24 08:59 sertraline (SERTRALINE) Allergy Unknown UPSET Verified 07/31/24 08:59 STOMACH [id number] Reductase AdvReac Unknown Insomnia Verified 07/31/24 08:59 Inhibitor Discharge Plan Disposition Patient Disposition: Home, Self-Care Condition: Fair Discharge Order Discharge Orders: Discharge Order (Routine); Ordered 12/06/24 Ordered By: Dennis Randolph Follow up Plan Follow up with: Minda Cuellar APRN [Primary Care Provider, Medical] - 12/13/24 10:20 am Phoenix Ramírez PA [Physician Publishing Systems Analyst, Cardiology] - 12/12/24 9:00 am Prescriptions/Medication Reconciliation: New hydrochlorothiazide 25 mg Tablet 25 mg PO DAILY 30 Days Qty: 30 0RF irbesartan 150 mg Tablet 150 mg PO DAILY 30 Days Qty: 30 0RF Continued tamsulosin 0.4 mg capsule 0.4 mg PO DAILY levothyroxine 25 mcg tablet 25 mcg PO DAILY 30 Days Qty: 30 metoprolol succinate 50 mg tablet extended release 24 hr 50 mg PO DAILY Discontinued irbesartan 300 mg tablet 300 mg PO DAILY Problem Reconciliation Problems Reviewed?: Yes Patient Discharge Instructions Patient Instructions: Bradycardia, DI for Pacemaker Insertion, DI for Surgical Site Infection, DI for Bradycardia Print Language: [place]itan Providers Primary Care Provider: Minda Cuellar Admit Provider: Dennis Randolph Attending Provider: Dennis Randolph
[2024-12-08 20:47] LABS: Free Testosterone (Direct) 7.7 pg/mL (6.6-18.1); Testosterone, Total, LC/MS 572.3 ng/dL (264.0-916.0)
--- NOTE | 2024-12-09 10:49 | SW/DCPLANNER ---
Spoke with patient, patient is aware of all upcoming appointments and was made aware of discontinued medications. 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
== END 2024-12-06 14:27 | disposition home or self-care (01) | DRG 244 ==
LOC: ER 12:38 → 2ND 13:29
PROVIDERS: Internal Medicine; Physician Assistant; Admitting Provider Student in an Organized Health Care Education/Training Program; Emergency Provider Student in an Organized Health Care Education/Training Program; PCP Nurse Practitioner Family; Visit Provider Student in an Organized Health Care Education/Training Program
PROC: 0JH606Z Insertion of Pacemaker, Dual Chamber into Chest Subcutaneous Tissue and Fascia, Open Approach (ICD-10-PCS; CPT 33208; principal; 2024-12-05 13:00)
DX: R00.1 Bradycardia, unspecified (principal); I25.10 Atherosclerotic heart disease of native coronary artery without angina pectoris; Z95.1 Presence of aortocoronary bypass graft; E78.49 Other hyperlipidemia; I11.9 Hypertensive heart disease without heart failure; E87.6 Hypokalemia; I45.2 Bifascicular block; N40.0 Benign prostatic hyperplasia without lower urinary tract symptoms; E03.9 Hypothyroidism, unspecified; Z79.899 Other long term (current) drug therapy; Z79.890 Hormone replacement therapy; Z79.83 Long term (current) use of bisphosphonates; Z88.5 Allergy status to narcotic agent; Z88.8 Allergy status to other drugs, medicaments and biological substances
CPT/HCPCS: 36415; 71045; 80053; 80061; 80074; 82533; 83735; 83880; 84100; 84402; 84403; 84443; 84484; 85025; 85610; 87389; 93005; 93306; 93976; C1785; C1898; J1650; J2004; J2250; J3010

== ENCOUNTER 2025-03-19 12:17 | Outpatient (CLI) | payer MEDICARE, MEDICAID, SELFPAY ==
--- OUTSIDE RECORDS SUMMARY | 2025-03-19 12:20 | XMS_ITS | Clinical Summary ---
Author Organization Healthcare Address [address] [id number] Care Team Providers Care Long Lines Operator Name Role Phone Ugo Walker MD Primary Care Provider [phone] Family History Medical History Relation Name Comments [...] Screening 1950 [facility]-Medicare Annual Wellness (AWV) 1950 [facility]-/Child/Adol SDOH Screenings 1950 [facility]- SDOH Screenings 1968 [facility]-Adult SDOH Screenings 1968 CT Colonography 11/10/1995 Colonoscopy 11/10/1995 FIT-DNA 11/10/1995 FIT 11/10/1995 FOBT 11/10/1995 Sigmoidoscopy 11/10/1995 [facility]-Colorectal Cancer Screening 11/10/1995 [facility]-Pneumococcal Vaccine: 50 + Years (1 of 1 - PCV) 2000 [facility]-Zoster Vaccines (1 of 2) 2000 [facility]-DTaP,Tdap,and Td Vaccine s (1 - Tdap) 12/29/2018 12/28/2018 [id number] Vaccine (2 - 20 25-26 season) 2025 07/29/2020 [facility]-Influenza Vaccine (#1) 2025 [facility]-RSV Vaccine: [...] topic Insurance [place] Care Teams Long Lines Operator Relationship Specialty Start Date End Date Ugo Walker MD [address] [place] [address] PCP - General 10/02/20
[2025-03-19 12:37] LABS: Hematocrit 48.7 % (42.0-52.0); Hemoglobin 16.7 g/dL (14.1-18.0); Immature Granulocytes % 0.4 %; Mean Corpuscular HGB Conc 34.3 g/dL (31.8-35.4); Mean Corpuscular Hemoglobin 30.0 pg (27.0-31.2); Mean Corpuscular Volume 87.6 fl (80-94); Nucleated Red Blood Cells % 0 %; Platelet Count 275 K/mm3 (142-424); Red Blood Count 5.56 M/mm3 (4.60-6.20); Red Cell Distribution Width-SD 42.5 fL; White Blood Count 9.9 K/mm3 (4.8-10.8)
[2025-03-19 13:13] LABS: Alanine Aminotransferase 29 U/L (12-78); Albumin Level 3.5 g/dl (3.5-5.0); Alkaline Phosphatase 91 U/L (38-126); Anion Gap 11.6 mEq/L (5-15); Aspartate Amino Transferase 30 U/L (17-59); Bilirubin,Direct 0.2 mg/dl (0.0-0.4); Bilirubin,Indirect 0.8 mg/dL (0.0-0.9); Bilirubin,Total 1.0 mg/dl (0.2-1.3); Bilirubin,Unconjugated 0.8 mg/dL (0.0-1.1); Blood Urea Nitrogen 22 mg/dl (9-20); Calcium 9.5 mg/dl (8.4-10.2); Carbon Dioxide 32 mmol/L (22.0-30.0); Chloride 98 mmol/L (98-107); Cholesterol 231 mg/dl (140-200); Creatinine,Serum 0.90 mg/dl (0.66-1.25); Estimated Glomerular Filt Rate 82 ml/min (>60); GFR (African American) 100 ML/MIN (>60); Glucose 106 mg/dl (74-100); HDL Cholesterol 61 mg/dl (40-60); Magnesium 1.8 mg/dl (1.6-2.3); Potassium 3.6 mmoL/L (3.5-5.1); Sodium 138 mmol/L (136-145); Total Protein,Serum 7.2 g/dl (6.3-8.2); Triglycerides 165 mg/dl (30-150)
[2025-03-19 13:29] LABS: Free T4 (Free Thyroxine) 1.60 ng/dl (0.78-2.19)
[2025-03-19 13:43] LABS: Thyroid Stimulating Hormone 1.00 uIU/mL (0.465-4.68)
[2025-03-23 21:13] LABS: Dopamine, Plasma 23.8 pg/mL (0.0-36.7); Epinephrine, Plasma 56.3 pg/mL (0.0-55.4); Norepinephrine, Plasma 999 pg/mL (115-524)
== END 2025-03-19 23:59 | disposition home or self-care (01) ==
LOC: LAB 12:18
PROVIDERS: PCP Nurse Practitioner Family; Visit Provider Physician Assistant
DX: I25.10 Atherosclerotic heart disease of native coronary artery without angina pectoris (principal); I10 Essential (primary) hypertension; G47.33 Obstructive sleep apnea (adult) (pediatric)
CPT/HCPCS: 36415; 80048; 80061; 80076; 82088; 82384; 83735; 83835; 84244; 84402; 84403; 84439; 84443; 85025

== ENCOUNTER 2025-03-21 10:04 | Outpatient (CLI) | payer MEDICARE, MEDICAID, SELFPAY ==
--- OUTSIDE RECORDS SUMMARY | 2025-03-21 10:06 | XMS_ITS | Clinical Summary ---
Author Organization Healthcare Address [address] [id number] Care Team Providers Care Admissions Nurse Name Role Phone Uog Walker MD Primary Care Provider [phone] Family History Medical History Relation Name Comments [...] Vaccine s (1 - Tdap) 12/29/2018 12/28/2018 [id number] Vaccine (2 - 20 25-26 season) 2025 [...] topic Insurance [place] Care Teams Admissions Nurse Relationship Specialty Start Date End Date Ugo Walker MD [address] [place] [address] PCP - General 10/02/20
== END 2025-03-21 23:59 | disposition home or self-care (01) ==
LOC: LAB 10:05
PROVIDERS: PCP Nurse Practitioner Family; Visit Provider Physician Assistant
DX: I10 Essential (primary) hypertension (principal)
CPT/HCPCS: 82384; 83835; 84585

== ENCOUNTER 2025-05-06 14:08 | Outpatient (CLI) | payer MEDICARE, MEDICAID, SELFPAY ==
--- OUTSIDE RECORDS SUMMARY | 2025-05-06 14:12 | XMS_ITS | Data Portability ---
Author Organization [facility] Address [address] [place] [address] Care Team Providers Care Medical Equipment Technician Name Role Phone MESHA HALL Primary Care Provider GURVINDER DEMPSEY Primary Care Provider Assessment Encounter Date Assessment Date Assessment LastModified by Organization Details LastModified Time 12/13/2024 12/13/2024 -Medications wer e reviewed and any necessary updates and renewals were made, patient instructed to complete as prescribed. -The potential side effects of medications were discussed. -Counseling was done on care goals and ways to prevent future hospitalizations. -Further treatment per orders listed below. [email or web address] Not available 12/13/2024 10:20:34 01/27/2025 01/27/2025 Patient presente d to office today for their Medicare Annual Wellness Visit. Education was provided on healthy nutrition, including a diet rich in fruits and vegetables, minimizing simple carbohydrates, salt, and saturated fats. Encouraged regular cardiovascular exercise such as walking at least 30 minutes daily, 5 times per week. Emphasized preventive health measures and educated pt on fall prevention and community-based lifestyle interventions to help reduce health risks and promote healthy living. Medicare Preventive Services Check List reviewed and printed for patient. [email or web address] Not available 01/27/2025 09:17:18 Plan of Treatment Reminders Order Date Submit Date Provider Last Modified By Organization Details Last Modified Time Details Appointments None recorded. Lab None recorded. Referral None recorded. Procedures None recorded. Surgeries None recorded. Imaging electrocard iogram 2024 025 [facility], [address], [place], [address], 11:35:01 Medication Orders metoprolol succinate ER 50 mg tablet,exte nded release 24 hr 2024 025 [email or web address] [facility], [address], [place], [address], 10:19:50 prednisone 20 mg tablet 2024 025 [facility], [address] [place] [address], [id number], 05:01:41 Normal Saline Flush 0.9 % injection syringe 2024 025 [email or web address] Not available 10:27:23 Patient TargetsNo targets recorded. Patient Instructions Encounter Date Encounter Id Patient Instructions Last Modified By Organization Details Last Modified Time 01/27/2025 [id number] advance directives: care instructions [email or web address] Not available 01/27/2025 09:50:05 learning about depression efryman Not available 01/27/2025 09:50:05 preventing falls : care instructions efryman Not available 01/27/2025 09:50:05 medicare preventive services guide efryman Not available 01/27/2025 09:50:05 Reason for Referral None Reported. Results Created Date Observation Date Name Description Value Unit Range Abnormal Flag Note LastModifiedBy Organization Detail LastModifiedTime 11/20/1911/20/2024 TSH+F REE T4 TSH 1.030 uIU/m L 0.450- 4.500 normal Not Available [facility] ([facility]) [address] [facility] [address], [place], [address], 11/20/2024 11:07:45 11/20/1911/20/2024 TSH+F REE T4 T4,free(dire ct) 1.51 NG/dL 0.82-1 .77 normal Not Available [facility] ([facility]) [address] [facility] [address], [place], [address], 11/20/2024 11:07:45 11/20/192025 CBC WITH DIFFE RENTI AL/PL ATELE T WBC 6.7 x10e3 /uL 3.4-10 .8 normal Not Available [facility] ([facility]) [address] [place], [address], 11/20/2024 11:07:45 11/20/19 25 11/20/2024 CBC WITH DIFFE RENTI AL/PL ATELE T RBC 5.31 x10e6 /uL 4.14-5 .80 normal Not Available [facility] ([facility]) [address] [place], [address], 11/20/2024 11:07:45 11/20/19 25 11/20/2024 CBC WITH DIFFE RENTI AL/PL ATELE T hemoglobin 15.7 g/dL 13.0-1 7.7 normal Not Available [facility] ([facility]) [address] [place], [address], 11/20/2024 11:07:45 11/20/19 25 11/20/2024 CBC WITH DIFFE RENTI AL/PL ATELE T hematocrit 48.3 % 37.5-5 1.0 normal Not Available [facility] ([facility]) [address] [place], [address], 11/20/2024 11:07:45 11/20/19 25 11/20/2024 CBC WITH DIFFE RENTI AL/PL ATELE T MCV 91 fL 79-97 normal Not Available [facility] ([facility]) [address] [place], [address], 11/20/2024 11:07:45 11/20/19 25 11/20/2024 CBC WITH DIFFE RENTI AL/PL ATELE T MCH 29.6 pg 26.6-3 3.0 normal Not Available [facility] ([facility]) [address] [place], [address], 11/20/2024 11:07:45 11/20/19 25 11/20/2024 CBC WITH DIFFE RENTI AL/PL ATELE T MCHC 32.5 g/dL 31.5-3 5.7 normal Not Available [facility] ([facility]) [address] [facility] [address], [place], [address], 11/20/2024 11:07:45 11/20/19 25 11/20/2024 CBC WITH DIFFE RENTI AL/PL ATELE T RDW 13.2 % 11.6-1 5.4 Not Available [facility] ([facility]) [address] [facility] [address], [place], [address], 11/20/2024 11:07:45 11/20/19 25 11/20/2024 CBC WITH DIFFE RENTI AL/PL ATELE T platelets 263 x10e3 /uL 150-45 0 normal Not Available [facility] ([facility]) [address] [facility] [address], [place], [address], 11/20/2024 11:07:45 11/20/19 25 11/20/2024 CBC WITH DIFFE RENTI AL/PL ATELE T neutrophils 53 % not estab. normal Not Available [facility] ([facility]) [address] [facility] [address] [place], [place], [address], 11/20/2024 11:07:45 11/20/19 25 11/20/2024 CBC WITH DIFFE RENTI AL/PL ATELE T lymphs 31 % not estab. normal Not Available [facility] ([facility]) [address] [facility] [address] [place], [place], [address], 11/20/2024 11:07:45 11/20/19 25 11/20/2024 CBC WITH DIFFE RENTI AL/PL ATELE T monocytes 9 % not estab. normal Not Available [facility] ([facility]) [address] [facility] [address] [place], [place], [address], 11/20/2024 11:07:45 11/20/19 25 11/20/2024 CBC WITH DIFFE RENTI AL/PL ATELE T eos 5 % not estab. normal Not Available [facility] ([facility]) [address] [facility] [address], [place], [address], 11/20/2024 11:07:45 11/20/19 25 11/20/2024 CBC WITH DIFFE RENTI AL/PL ATELE T basos 1 % not estab. normal Not Available [facility] ([facility]) [address] [facility] [address], [place], [address], 11/20/2024 11:07:45 11/20/19 25 11/20/2024 CBC WITH DIFFE RENTI AL/PL ATELE T immature cells NUTRITION SPECIALIST Not Available [facility] ([facility]) [address] [facility] [address] [place], [place], [address], 11/20/2024 11:07:45 11/20/19 25 11/20/2024 CBC WITH DIFFE RENTI AL/PL ATELE T neutrophils (absolute) 3.6 x10e3 /uL 1.4-7. 0 normal Not Available [facility] ([facility]) [address] [place], [address], 11/20/2024 11:07:45 11/20/19 25 11/20/2024 CBC WITH DIFFE RENTI AL/PL ATELE T lymphs (absolute) 2.1 x10e3 /uL 0.7-3. 1 normal Not Available [facility] ([facility]) [address] [place], [address], 11/20/2024 11:07:45 11/20/19 25 11/20/2024 CBC WITH DIFFE RENTI AL/PL ATELE T monocytes(ab solute) 0.6 x10e3 /uL 0.1-0. 9 normal Not Available [facility] ([facility]) [address] [facility] [address], [place], [address], 11/20/2024 11:07:45 11/20/19 25 11/20/2024 CBC WITH DIFFE RENTI AL/PL ATELE T eos (absolute) 0.4 x10e3 /uL 0.0-0. 4 normal Not Available [facility] ([facility]) [address] [facility] [address], [place], [address], 11/20/2024 11:07:45 11/20/19 25 11/20/2024 CBC WITH DIFFE RENTI AL/PL ATELE T baso (absolute) 0.1 x10e3 /uL 0.0-0. 2 normal Not Available [facility] ([facility]) [address] [facility] [address], [place], [address], 11/20/2024 11:07:45 11/20/19 25 11/20/2024 CBC WITH DIFFE RENTI AL/PL ATELE T immature granulocytes 1 % not estab. Not Available [facility] ([facility]) [address] [facility] [address], [place], [address], 11/20/2024 11:07:45 11/20/19 25 11/20/2024 CBC WITH DIFFE RENTI AL/PL ATELE T immature grans (abs) 0.1 x10e3 /uL 0.0-0. 1 Not Available [facility] ([facility]) [address] [facility] [address], [place], [address], 11/20/2024 11:07:45 11/20/19 25 11/20/2024 CBC WITH DIFFE RENTI AL/PL ATELE T NRBC NUTRITION SPECIALIST Not Available [facility] ([facility]) [address] [facility] [address], [place], [address], 11/20/2024 11:07:45 11/20/19 25 11/20/2024 CBC WITH DIFFE RENTI AL/PL ATELE T hematology comments: NUTRITION SPECIALIST Not Available [facility] ([facility]) [address] [facility] [address], [place], [address], 11/20/2024 11:07:45 11/20/19 25 11/20/2024 COMP. METAB OLIC PANEL (14) glucose 93 mg/dL 70-99 normal Not Available [facility] ([facility]) [address] [facility] [place], [address], 11/20/2024 11:07:46 11/20/19 25 11/20/2024 COMP. METAB OLIC PANEL (14) BUN 15 mg/dL 8-27 normal Not Available [facility] ([facility]) [address] [facility] [place], [address], 11/20/2024 11:07:46 11/20/19 25 11/20/2024 COMP. METAB OLIC PANEL (14) creatinine 0.79 mg/dL 0.76-1 .27 normal Not Available [facility] ([facility]) [address] [facility] [place], [address], 11/20/2024 11:07:46 11/20/19 25 11/20/2024 COMP. METAB OLIC PANEL (14) eGFR 93 mL/mi n/1.7 3 >59 normal Not Available [facility] ([facility]) [address] [facility] [place], [address], 11/20/2024 11:07:46 11/20/19 25 11/20/2024 COMP. METAB OLIC PANEL (14) BUN/creatini ne ratio 19 10-24 normal Not Available [facility] ([facility]) [address] [place], [address], 11/20/2024 11:07:46 11/20/19 25 11/20/2024 COMP. METAB OLIC PANEL (14) sodium 143 mmol/ L 134-14 4 normal Not Available [facility] ([facility]) [address] [place], [address], 11/20/2024 11:07:46 11/20/19 25 11/20/2024 COMP. METAB OLIC PANEL (14) potassium 3.7 mmol/ L 3.5-5. 2 normal Not Available [facility] ([facility]) [address] [place], [address], 11/20/2024 11:07:46 11/20/19 25 11/20/2024 COMP. METAB OLIC PANEL (14) chloride 104 mmol/ L 96-106 normal Not Available [facility] ([facility]) [address] [place], [address], 11/20/2024 11:07:46 11/20/19 25 11/20/2024 COMP. METAB OLIC PANEL (14) carbon dioxide, total 22 mmol/ L 20-29 normal Not Available [facility] ([facility]) [address] [place], [address], 11/20/2024 11:07:46 11/20/19 25 11/20/2024 COMP. METAB OLIC PANEL (14) calcium 9.4 mg/dL 8.6-10 .2 normal Not Available [facility] ([facility]) [address] [place], [address], 11/20/2024 11:07:46 11/20/19 25 11/20/2024 COMP. METAB OLIC PANEL (14) protein, total 6.4 g/dL 6.0-8. 5 normal Not Available [facility] ([facility]) [address] [place], [address], 11/20/2024 11:07:46 11/20/19 25 11/20/2024 COMP. METAB OLIC PANEL (14) albumin 4.2 g/dL 3.8-4. 8 normal Not Available [facility] ([facility]) [address] [place], [address], 11/20/2024 11:07:46 11/20/19 25 11/20/2024 COMP. METAB OLIC PANEL (14) globulin, total 2.2 g/dL 1.5-4. 5 Not Available [facility] ([facility]) [address] [place], [address], 11/20/2024 11:07:46 11/20/19 25 11/20/2024 COMP. METAB OLIC PANEL (14) bilirubin, total 1.0 mg/dL 0.0-1. 2 normal Not Available [facility] ([facility]) [address] [facility] [place], [address], 11/20/2024 11:07:46 11/20/19 25 11/20/2024 COMP. METAB OLIC PANEL (14) alkaline phosphatase 73 IU/L 44-121 normal Not Available [facility]) [address] [facility] [place], [address], 11/20/2024 11:07:46 11/20/19 25 11/20/2024 COMP. METAB OLIC PANEL (14) AST (SGOT) 23 IU/L 0-40 normal Not Available [facility] ([facility]) [address] [place], [address], 11/20/2024 11:07:46 11/20/19 25 11/20/2024 COMP. METAB OLIC PANEL (14) ALT (SGPT) 22 IU/L 0-44 normal Not Available [facility] ([facility]) [address] [place], [address], 11/20/2024 11:07:46 11/20/19 25 11/20/2024 LIPID PANEL cholesterol, total 230 mg/dL 100-19 9 above high normal Not Available [facility] ([facility]) [address] [place], [address], 11/20/2024 11:07:46 11/20/19 25 11/20/2024 LIPID PANEL triglyceride s 87 mg/dL 0-149 normal Not Available [facility] ([facility]) [address] [place], [address], 11/20/2024 11:07:46 11/20/19 25 11/20/2024 LIPID PANEL HDL cholesterol 63 mg/dL >39 normal Not Available [facility]) [address] [place], [address], 11/20/2024 11:07:46 11/20/19 25 11/20/2024 LIPID PANEL VLDL cholesterol thee 15 mg/dL 5-40 Not Available [facility] ([facility]) [address] [place], [address], 11/20/2024 11:07:46 11/20/19 25 11/20/2024 LIPID PANEL LDL chol calc ([facility]) 152 mg/dL 0-99 above high normal Not Available [facility] ([facility]) [address] [place], [address], 11/20/2024 11:07:46 11/20/19 25 11/20/2024 LIPID PANEL LDL calc comment: NUTRITION SPECIALIST Not Available [facility] ([facility]) [address] [place], [address], 11/20/2024 11:07:46 11/20/19 25 11/20/2024 PSA TOTAL (REFL EX TO FREE) prostate specific Ag 4.1 NG/mL 0.0-4. 0 above high normal Umesh ECLIA metho dolog y. Accor ding to the Ameri can Urolo g[employer] iatio n, Serum PSA shoul d decre ase and remai n at undet ectab le level s after radic al prost atect dionicio. The AUA defin es bioch emica l recur rence as an initi al PSA value 0.2 ng/mL or great er follo wed by a subse quent confi rmato ry PSA value 0.2 ng/mL or great er. Value s obtai meseret with diffe rent assay metho ds or kits canno t be used inter cotton eably . Resul ts canno t be inter prete d as absol kluti kaah evide nce of the prese nce or absen ce of ashley nina disea se. Not Available [facility] ([facility]) [address] [place], [address], 11/20/2024 11:07:47 11/20/19 25 11/20/2024 PSA TOTAL (REFL EX TO FREE) PSA, free 1.21 NG/mL n/a Umesh ECLIA metho dolog y. Not Available [facility] ([facility]) [address] [facility] [address], [place], [address], 11/20/2024 11:07:47 11/20/19 25 11/20/2024 PSA TOTAL (REFL EX TO FREE) % free PSA 29.5 % The table below lists the proba bilit y of prost ate cance r for men with non-s uspic ious BERNIE resul ts and total PSA betwe en 4 and 10 ng/mL , by patie nt age (Alecia wilkinson et al, ABBI 1998, 279:1 542). % Free PSA 50-64 yr 65-75 yr 0.00- 10.00 % 56% 55% 10.01 -15.0 0% 24% 35% 15.01 -20.0 0% 17% 23% 20.01 -25.0 0% 10% 20% >25.0 0% 5% 9% Plechivo e note: Diana millan et al did not make speci fic recom jackie maldonado ding the use of perce nt free PSA for any other popul ation of men. Not Available [facility] ([facility]) [address] [place], [address], 11/20/2024 11:07:47 11/20/19 25 11/20/2024 PSA TOTAL (REFL EX TO FREE) reflex criteria Commen t The perce nt free PSA is perfo rmed on a refle x basis only when the total PSA is betwe en 4.0 and 10.0 ng/mL . Not Available [facility] ([facility]) [address] [facility] [address], [place], [address], 11/20/2024 11:07:47 12/04/19 25 12/03/2024 elect gregory trejo am No observ ation record ed. [address], [address], 12/03/2024 13:27:08 12/04/19 25 12/03/2024 XR, chest , 2 view No observ ation record ed. [place] [id number], [place], [address], 12/03/2024 14:23:30 12/05/19 25 12/03/2024 elect rocar diogr am No observ ation record ed. [place] [id number], [place], [address], 12/05/2024 09:38:50 12/05/19 25 12/03/2024 CT, angio gram, renal arter ies, w/ contr ast No observ ation record ed. [address], [place], [address], 12/05/2024 09:38:50 12/06/19 25 12/03/2024 elect rocar diogr am No observ ation record ed. [address], [address], 12/05/2024 13:15:03 12/06/19 25 12/05/2024 XR, chest , 2 view No observ ation record ed. [facility] [address], [place], [address], 12/05/2024 15:59:44 12/06/19 25 12/03/2024 stres s echoc ardio gram with doppl er color flow (PROC ) No observ ation record ed. [place] [id number], [place], [address], 12/06/2024 08:56:07 12/10/19 25 12/04/2024 elect rocar diogr am No observ ation record ed. [email or web address] [address], [place], [address], 12/09/2024 10:10:44 Result Notes None recorded. Problems Name Problem SNOMED Code Status Onset Date Resolution Date Notes Provider Name and Address Organization Details Recorded Time Hypothyroidis m 00325581 Active Gloria Bates null, [place] - [facility] 10:42:56 Hypertensive disorder 26151769 Active Gloria Bates null, [place] - [facility] 10:43:07 Insomnia 383897607 Active Gloria Bates null, [place] - [facility] 10:43:22 Sleep apnea 32104398 Active Gloria Bates null, [place] - [facility] 10:44:51 Anxiety 34531123 Active Gloria Bates null, [place] - [facility] 10:45:02 Cardiac pacemaker in situ 517856274 Active 2024 Gurvinder Dempsey, [facility] [address], [place], [address] , [place] - [facility] 5 11:35:11 Problem Notes None recorded. Procedures Surgical History Date Name Laterality Status Provider Name and Address Organization Details Recorded Time 01/28/20 Advance Care Planning completed Gloria Bates [place] - [facility] 01/27/2025 09:17:18 01/28/20 25 Functional Status Assessed completed Gloria Bates [place] [facility] 01/27/2025 09:17:18 12/14/19 25 Medication Reconcilliation completed Priyanka Kohli [place] - [facility] 12/13/2024 10:20:34 12/06/19 25 Pacemaker Placement completed Priyanka Kohli [place] [facility] 12/13/2024 10:25:22 12/04/19 25 IV Infusion completed Gloria Bates [place] - [facility] 12/03/2024 13:29:55 09/22/19 24 Advance Care Planning completed Gloria Bates [place] [facility] 09/22/2023 09:10:48 09/22/19 24 Functional Status Assessed completed Gloria Bates [place] [facility] 09/22/2023 09:10:48 05/04/20 22 Colonoscopy completed Priyanka Bais [place] - [facility] 07/18/2022 14:42:58 10/06/19 17 CABG completed Gloria Bates [place] [facility] 03/25/2022 10:43:54 procedure on ear completed Beatrice Bates [place] - [facility] 03/25/2022 10:49:35 Ear Tubes - Tympanostomy Tubes completed Gloria Bates [place] [facility] 03/25/2022 10:49:59 hernia repair completed Gloria Bates [place] [facility] 09/22/2023 09:19:14 cardiac catheterization completed Gloria Bates [place] [facility] 09/22/2023 09:19:34 dental surgery completed Priyanka Bais [place] - [facility] 07/02/2024 10:39:56 Imaging Results None recorded. Procedure Notes None recorded. Medical Equipment None Reported. Allergies Allergen ID Allergen Name Allergen Category Reaction Reaction Severity Criticality Documentation Date Start Date Code Code System Note Provider Name and Address Organization Details Recorded Time [id number] codeine medicatio n hallucina tions moderate high 03/25/2022 2670 RxNorm Gloria dowling, [place] - [facility] 10:36:28 [id number] Paxil medicatio n confusion moderate high 03/25/2022 74887 8 RxNorm Gloria dowling, [place] - [facility] 10:36:57 214724 Product containin g 3-hydroxy -3-methyl glutaryl- coenzyme A reductase inhibitor (product) medicatio n insomnia severe high 03/25/2022 33811 009 SNOMED Gloria dowling, [place] - [facility] 10:37:27 Medications Name Sig Start Date Stop Date Status Note LastModified by Organization Details LastModified Time amoxicillin 500 mg capsule TAKE ONE (1) CAPSULE BY MOUTH EVERY 12 HOURS 07/19 completed Not Available Not Available Not Available clonidine HCl 0.1 mg tablet TAKE ONE TABLET BY MOUTH TWICE DAILY NEEDED FOR systolic BLOOD PRESSURE OVER 180 active Not Available Not Available No t Available triazolam 0.25 mg tablet TAKE ONE TABLET BY MOUTH AT bedtime, THEN TAKE ONE TABLET one hour BEFORE dental appointme nt, THEN bring THE 3rd tablet with you. 07/02 completed Not Available Not Available Not Available Normal Saline Flush 0.9 % injection syringe Take 10 mL by injection route. 12/13 completed Not Available Not Available Not Available zinc acetate 25 mg (zinc) capsule Take 2 capsules every day by oral route. 07/02 completed Not Available Not Available Not Available ibuprofen 800 mg tablet TAKE ONE TABLET BY MOUTH EVERY 8 HOURS NEEDED FOR PAIN --TAKE WITH FOOD-- 07/02 completed Not Available Not Available Not Available metoprolol succinate ER 50 mg tablet,exte nded release 24 hr TAKE 1 TABLET po twice a day 04/08 completed Not Available Not Available Not Available hydrochloro thiazide 50 mg tablet TAKE ONE TABLET BY MOUTH EVERY DAY active Not Available Not Available No t Available hydrocodone 5 mg-acetamin ophen 325 mg tablet TAKE 1 TO 2 TABLET(S) BY MOUTH EVERY 6 HOURS NEEDED FOR PAIN MAY CAUSE DROWSINES S 09/21 completed Not Available Not Available Not Available prednisone 20 mg tablet Take 1 tablet twice a day by oral route for 5 days. 01/04 completed Not Available Not Available Not Available metoprolol succinate ER 100 mg tablet,exte nded release 24 hr TAKE ONE TABLET BY MOUTH TWICE DAILY active Not Available Not Available No t Available sulfamethox azole 800 mg-trimetho prim 160 mg tablet TAKE ONE TABLET BY MOUTH TWICE DAILY FOR 10 DAYS -- FINISH ALL MEDICINE -- 07/19 completed Not Available Not Available Not Available amoxicillin 500 mg tablet Take 1 tablet every 12 hours by oral route for 10 days. 07/19 completed Not Available Not Available Not Available levothyroxi ne 25 mcg tablet TAKE 1 TABLET EVERY DAY 2024 active Not Available Not Available Not Avai lable losartan 100 mg-hydrochl orothiazide 25 mg tablet TAKE 1/2 TABLET TWICE DAILY 07/19 completed Not Available Not Available Not Available cyanocobala min (vit B-12) 500 mcg tablet Take 1 tablet every day by oral route. 04/08 completed Not Available Not Available Not Available tamsulosin 0.4 mg capsule TAKE 1 CAPSULE EVERY DAY 2024 active Not Available Not Available Not Avai lable amlodipine 10 mg tablet TAKE 1 TABLET EVERY DAY 07/19 completed Not Available Not Available Not Available hydrocodone 7.5 mg-acetamin ophen 325 mg tablet TAKE ONE TABLET BY MOUTH EVERY 4 TO 6 HOURS NEEDED FOR PAIN --TAKE WITH FOOD-- MAY CAUSE DROWSINES S 07/02 completed Not Available Not Available Not Available pantoprazol e 40 mg tablet,jaleesa yed release TAKE ONE TABLET BY MOUTH EVERY DAY FOR 1 MONTH, THEN EVERY DAY NEEDED THEREAFTE R active Not Available Not Available No t Available Cipro 500 mg tablet Take 1 tablet every 12 hours by oral route for 20 days. 06/02 completed Not Available Not Available Not Available promethazin e 25 mg tablet TAKE ONE TABLET BY MOUTH EVERY 6 HOURS NEEDED FOR NAUSEA AND VOMITING 07/02 completed Not Available Not Available Not Available losartan 25 mg tablet 08/12 completed Not Available Not Available Not Available lidocaine HCl 2 % mucosal solution APPLY TOPICALLY TO THE AFFECTED AREA(S) EVERY 4 HOURS NEEDED FOR PAIN 07/02 completed Not Available Not Available Not Available aspirin 81 mg chewable tablet Chew 1 tablet every day by oral route. 09/21 completed Not Available Not Available Not Available hydrochloro thiazide 25 mg tablet Take 1 tablet every day by oral route in the morning. 2024 active Not Available Not Available Not Avai lable zolpidem 5 mg tablet TAKE ONE TABLET BY MOUTH AT BEDTIME FOR SLEEP study max daily DOSE = 10 mg --do not drive AFTER taking-- active Not Available Not Available No t Available irbesartan 150 mg tablet TAKE ONE TABLET BY MOUTH EVERY DAY 04/08 completed Not Available Not Available Not Available methylpredn isolone 4 mg tablets in a dose pack TAKE ACCORDING TO PACKAGE INSTRUCTI ONS --TAKE WITH FOOD-- -- FINISH ALL MEDICINE -- 07/02 completed Not Available Not Available Not Available oxybutynin chloride 5 mg tablet 08/29 completed Not Available Not Available Not Available irbesartan 300 mg tablet TAKE ONE TABLET BY MOUTH EVERY DAY active Not Available Not Available No t Available spironolact one 50 mg tablet TAKE 1/2 TABLET BY MOUTH EVERY MORNING FOR one WEEK THEN TAKE ONE TABLET BY MOUTH EVERY DAY active Not Available Not Available No t Available chlorhexidi ne gluconate 0.12 % mouthwash FILL SUPPLIED CUP (1/2 OUNCE); SWISH IN MOUTH FOR 30 SECONDS TWICE DAILY (AFTER BREAKFAST & BEFORE BEDTIME). SWISH THEN EXPEL REMAINDER OR USE DIRECTED 07/02 completed Not Available Not Available Not Available sodium,pota ssium,mag sulfates 17.5 gram-3.13 gram-1.6 gram oral soln 06/02 completed Not Available Not Available Not Available Repatha SureClick 140 mg/mL subcutaneou s pen injector INJECT 140 MG SUBCUTANE OUSLY EVERY 2 WEEKS active Not Available Not Available No t Available Fish Oil 1,200 mg (144 mg-216 mg) capsule Take 1 capsule twice a day by oral route. active Not Available Not Available No t Available Vitals Date Recorded Oxygen saturation Respiratory rate Heart rate Systolic And Diastolic Provider Name and Address Organization Details Last Updated DateTime 12/03/2024 96 % 16 /min 52 /min 170/90 mm[Hg] Gloria Bates [place] - [facility] 5 13:27:46 Date Recorded Body height Body mass index (BMI) Body weight Heart rate Respiratory rate Oxygen saturation Body temperature Systolic And Diastolic Provider Name and Address Organization Details Last Updated DateTime 5 172.72 cm 23.9 kg/m2 75151 g 56 /min 18 /min 98 % 98 [degF] 168/92 mm[Hg] Priyanka Stears [place] - [facility] 5 09:11:12 Date Recorded Body height Respiratory rate Body mass index (BMI) Body weight Heart rate Oxygen saturation Body temperature Systolic And Diastolic Provider Name and Address Organization Details Last Updated DateTime 5 172.72 cm 18 /min 23.4 kg/m2 10243.2 2 g 62 /min 95 % 98.1 [degF] 134/82 mm[Hg] Priyanka Stears [place] - [facility] 5 10:31:28 Date Recorded Body height Respiratory rate Body mass index (BMI) Body weight Oxygen saturation Heart rate Body temperature Systolic And Diastolic Provider Name and Address Organization Details Last Updated DateTime 5 172.72 cm 18 /min 23.6 kg/m2 39477.8 2 g 97 % 64 /min 98 [degF] 184/90 mm[Hg] Priyanka Stears [place] - [facility] 5 16:25:14 Date Recorded Body height Body mass index (BMI) Body weight Heart rate Oxygen saturation Respiratory rate Pain severity - 0-10 verbal numeric rating [Score] - Reported Body temperature Systolic And Diastolic Provider Name and Address Organization Details Last Updated DateTime 5 172.72 cm 23.6 kg/m2 32505.8 2 g 79 /min 99 % 20 /min 4 97.8 [degF] 180/86 mm[Hg] Gloria Jana [place] - [facility] 5 09:35:56 Date Recorded Body height Body mass index (BMI) Body weight Heart rate Oxygen saturation Body temperature Respiratory rate Systolic And Diastolic Provider Name and Address Organization Details Last Updated DateTime 5 172.72 cm 23.9 kg/m2 77611 g 60 /min 98 % 97.9 [degF] 18 /min 184/100 mm[Hg] Priyanka Baicaryn [place] - [facility] 5 10:37:10 Social History Question Answer Notes LastModified by Organizat ion Details LastModified Time Tobacco Smoking Status Former Smoker Gloria Jana [place], [place] - [facility] 03/25/2022 10:46:40 Do You Have An Advance Directive? Yes Information not available 03/25/2022 Are You Blind Or Do You Have Difficulty Seeing? No Information not available 03/25/2022 What Is Your Level Of Caffeine Consumption? Moderate Information not available 03/25/2022 In The 14 Days Before Symptom Onset, Have You Had Close Contact With A Laboratory-confir med COVID-19 While That Case Was Ill? No Information not available 03/25/2022 In The 14 Days Before Symptom Onset, Have You Had Close Contact With A Person Who Is Under Investigation For COVID-19 While That Person Was Ill? No Information not available 03/25/2022 Have You Been To An Area Known To Be High Risk For COVID-19? No Information not available 03/25/2022 Are You Deaf Or Do You Have Serious Difficulty Hearing? No Information not available 03/25/2022 What Type Of Diet Are You Following? REGULAR Information not available 03/25/2022 Have You Processed Blood Or Body Fluids From An Ebola Virus Disease Patient Without Appropriate PPE? No Information not available 03/25/2022 Do You Reside In Or Have You Traveled To An Area Where Ebola Virus Transmission Is Active? No Information not available 03/25/2022 What Is The Highest Grade Or Level Of School You Have Completed Or The Highest Degree You Have Received? [id number] Information not available 03/25/2022 Have There Been Any Changes To Your Family Or Social Situation? No Information no t available 03/25/2022 What Is The Fluoride Status Of Your Home? Fluoridated Information not available 03/25/2022 When Did You Quit Smoking? 16+yearssincela mattette Information not available 03/25/2022 Have You Recently Or Are You Planning To Travel To An Area With Zika Virus? No Information not available 03/25/2022 Do You Have A Medical Power Of Aeronautical Project Engineer? No Information not available 03/25/2022 What Was The Date Of Your Most Recent Tobacco Screening? 07/02/2024 Information not available 07/02/2024 How Many Children Do You Have? 1 Information not available 03/25/2022 What Is Your Current Pack Years? 10-19packyears Information not available 07/02/2024 What Is Your Relationship Status? Information not available 03/25/2022 Do You Have Smoke And Carbon Monoxide Detectors In Your Home? Yes Information not available 03/25/2022 At What Age Did You Start Smoking Tobacco? 14 Information not available 07/02/2024 Are You Passively Exposed To Smoke? No Information no t available 03/25/2022 How Much Tobacco Do You Smoke? 1 PPD Information not available 07/02/2024 Has Tobacco Cessation Counseling Been Provided? No Information not available 08/29/2022 How Many Years Have You Smoked Tobacco? 12 Quit At Age 26 Information not available 07/02/2024 Do You Have Difficulty Walking Or Climbing Stairs? No Information not available 03/25/2022 How Many Years Have You Used Smokeless Tobacco? 61 Information not available 03/25/2022 Sex: Male Functional Status Question Answer Note LastModified by Organizat ion Details LastModified Time Do you use any illicit or recreational drugs? No Information not available 03/25/2022 Do you or have you ever used any other forms of tobacco or nicotine? Yes Information not available 03/25/2022 What is your level of alcohol consumption? None Information not available 03/25/2022 Do you or have you ever used smokeless tobacco? Current snuff user Information not available 03/25/2022 Are you currently employed? No Information not available 07/02/2024 Do you have transportation difficulties? No Information not available 03/25/2022 Are you able to walk independently without assistance or assistive devices? YESWOREST Information not available 03/25/2022 Do you have difficulty doing errands alone? No Information not available 03/25/2022 Are you able to care for yourself independently? Yes Information not available 03/25/2022 Do you have difficulty dressing, bathing, grooming, or toileting? No Information not available 03/25/2022 Do you or have you ever used e-cigarettes or vape? Never used electronic cigarettes Information not available 03/25/2022 What is your exercise level? Moderate Information not available 03/25/2022 Mental Status Question Answer Note LastModified by Organizat ion Details LastModified Time Do you feel stressed (tense, restless, nervous, or anxious, or unable to sleep at night)? [id number] Information not available 03/25/2022 Do you have difficulty concentrating, remembering or making decisions? No Information no t available 03/25/2022 Family History Nothing Reported Notes:patient was adopted an d he doesn't know the history Medical History No medical history recorded. Immunizations Vaccine Type Date Status Note Provider Name and Address Organization Details Recorded Time Pneumococcal conjugate PCV20, polysaccharide LWS068 conjugate, adjuvant, PF 024 cancelled patient objection Gurvinder Dempsey APRN [address], [place], [address], [facility] - [facility] 09/22/2023 10:01:25 zoster recombinant 024 cancelled patient objection Gurvinder Dempsey, [employer] [facility] [address], [place], [address], [place] - [facility] 09/22/2023 10:01:25 zoster recombinant 025 cancelled patient objection Gurvinder Dempsey, [employer] [facility] [address], [place], [address], [place] - [facility] 01/27/2025 10:25:07 Influenza, split virus, trivalent, preservative 025 cancelled patient objection Gurvinder Dempsey, [employer] [facility] [address], [place], [address], [place] - [facility] 01/27/2025 10:25:07 Td (adult) 019 completed Gloria dowling, [facility] 04/05/2022 10:02:15 COVID-19 vaccine, vector-nr, rS-Ad26, PF, 0.5 mL 021 completed Gloria dowling, [facility] 04/05/2022 10:02:15 Past Encounters Encounter ID Performer Location Encounter Start Date Encounter Closed Date Diagnosis/Indication Diagnosis SNOMED-CT Code Diagnosis ICD10 Code Diagnosis IMO Codes Diagnosis Note [id number] Gurvinder Dempsey [address] [address] 03/25/2022 10:01:14 03/25/2022 11:14:28 Hypertensive disorder 95161421 I10 Hypothyroidism 84604360 E03.9 return in may for labs Insomnia 648567840 G47.0 0 Anxiety 54924793 F41.9 [id number] Gurvinder Dempsey [address] [address] 04/05/2022 09:47:57 04/05/2022 11:15:24 Anxiety 71440334 F41.9 Hypothyroidism 15233613 E03.9 Insomnia 684362641 G47.0 0 Sleep apnea 57148240 G47 .30 Fatigue 03027037 R53.83 Constipation 10426081 K5 9.00 Screening for malignant neoplasm of prostate 012473542 Z12.5 Abdominal pain 26039497 R10.9 [id number] [facility] [address] [place] [address] 04/22/2022 13:40:26 04/22/2022 14:53:32 Patient medical record not available [id number] Z76.89 Prostate s pecific antigen above reference range 134091700 R97.20 Microscopic hematuria 19 4280499 R31.29 Acute prostatitis 026559 02 N41.0 [id number] [facility] [address] [place] [address] 05/27/2022 13:05:42 05/27/2022 15:55:51 Prostate specific antigen above reference range 106411442 R97.20 Microscopic hematuria 19 1872830 R31.29 Kidney stone 30164956 N2 0.0 [id number] Gurvinder Dempsey [address] [address] 06/02/2022 14:19:45 06/02/2022 15:36:12 Left inguinal hernia 548134700 K40.90 pt wants to wait on hernia till he sees the urologist for kidney stone removalins tructed if any issues or new symptoms to return or go to ed fredy [id number] Gurvinder Dempsey [address] [address] 08/29/2022 10:55:29 08/29/2022 11:37:49 Left inguinal hernia 395553144 K40.90 pt wants to wait on hernia till he sees the urologist for kidney stone removalins tructed if any issues or new symptoms to return or go to ed fredy [id number] Gurvinder Dempsey [address] [address] 09/22/2023 08:43:17 09/22/2023 10:05:06 Adult health examination 530814832 Z00.00 Depression screening 171 926268 Z13.31 A depression screening was completed via a standardiz ed screening tool. 5 minutes were spent discussing depression screening results and risk factors. Examinatio n of blood pressure 862165052 Z01.30 Diet education 52435580 Z71.3 Counseling 501390010 Z71 .82 Exercise counseling . Patient encouraged to exercise 30 minutes 5 days a week. At [facility] ed risk for falls 884856436 Z91.81 STEADI FAST screening score of __3___. Advance care planning 71 8088785 Z71.89 Body mass index 20-24 - normal 220183349 Z68.23 Hypertensive disorder 38 680053 I10 Anxiety 64663703 F41.9 Hypothyroidism 55827673 E03.9 Insomnia 326607910 G47.0 0 Administra tion of pneumococcal vaccine 31974012 Z23 Hepatitis C screening declined 1031438359 5105 Z53.20 Abdominal aortic aneurysm screening declined 766620399 Z53.20 Active or passive immunization 248233415 Z23 Arthritis 1826267 M19.90 [id number] Gurvinder Dempsey [address] [address] 07/02/2024 10:16:52 07/02/2024 11:06:09 Sebaceous cyst of skin 170037922 L72.3 Sore gums 23374854 K08.8 9 hold bp med and monitor bp keep log if elevated call office. will do trial of holding bp med and see if gums clearmake sure you discuss with dentist tomorrow cause of gum pain. [id number] Gurvinder Dempsey [address] [address] 07/19/2024 12:50:05 07/19/2024 14:49:59 Hypertensive disorder 56954724 I10 stop losartanke ep log of bp and bring to appointmen tcall for any concerns [id number] Gurvinder Dempsey [address] [address] 08/12/2024 14:36:55 08/12/2024 15:21:32 Hypertensive disorder 69690599 I10 stop hctzkeep log of bp and bring to appointmen tcall for any concernsre turn in 2 weeks for bp checkspoke with dr correia he recommende d irbesartan 300mg daily and torprol 50mg daily-foll ow up with cardiology as scheduled [id number] Gurvinder Ascencionoemy [address] [address] 09/09/2024 13:35:58 09/09/2024 14:34:56 Hypertensive disorder 01410458 I10 keep log of bp and bring to appointmen tcall for any concernsco ntiune meds [id number] Gurvinder Ascencionoemy [address] [address] 11/19/2024 08:57:12 11/19/2024 10:32:19 Hypertensive disorder 51546777 I10 keep log of bp and bring to appointmen tcall for any concernsco ntinue medscan take both meds in am to see if it helps with sleep Hypothyroidism 50458238 E03.9 Anxiety 88965130 F41.9 Insomnia 224935167 G47.0 0 pt states sleep apnea not the cause of insomnia- discussed with pt how it can affect sleep he states he can not get to sleep. does not want any new meds Screening for malignant neoplasm of prostate 643131449 Z12.5 936944 [id number] Jamesdarryl noemy [address] [address] 12/03/2024 08:55:04 12/03/2024 10:38:19 Hypertensive disorder 00193784 I10 Chest discomfort 0429608 09 R07.89 [id number] pt had a dog in car and no way to get dog home, permission from pt to call metal organ pipe maker to take his dog home and place it in fence in yard.ekg abnormal spoke to Dr Correia and pt sent to ed via ambulance report to [facility] for eval and will need cathat bedside until ambulance arrived Increasing breathlessness 812081475 R06.02 2920180994 [id number] Jamesdarryl noemy [address] [address] 12/13/2024 10:17:07 12/13/2024 11:18:22 Post-discharge follow-up 666878696 Z09 [id number] pt doing well no issues at this time Cardiac pa won in situ 133546982 Z95.0 [id number] follow up with jefferson as scheduled [id number] Gurvinder Ascencionoemy [address] [address] 12/23/2024 16:14:12 12/23/2024 17:00:10 Strain of neck muscle 954552103 S16.1XXA 4190681 tylenol or motrin as neededices teroidsxra yif worsen or no improvemen t return [id number] Gurvinder Ascencionoemy [address] [address] 01/27/2025 09:05:27 01/27/2025 10:26:28 Adult health examination 700354752 Z00.00 Depression screening 171 900123 Z13.31 A depression screening was completed via a standardiz ed screening tool. 5 minutes were spent discussing depression screening results and risk factors. Examinatio n of blood pressure 991435524 Z01.30 Diet education 96661417 Z71.3 Counseling 976702790 Z71 .82 Exercise counseling . Patient encouraged to exercise 30 minutes 5 days a week. At [facility] ed risk for falls 410803275 Z91.81 STEADI FAST screening score of __3___. Advance care planning 71 6900463 Z71.89 Hypertensive disorder [address] Correia will increase metoprolol to bid recheck bp in 1 week Hepatitis C screening declined 5617594571 5105 Z53.20 5727026209 Screening for osteoporosis 675138914 Z13.820 217312 Influenza vaccination declined 137579647 Z28.[address] vaccination declined 4922277831 102 Z28.21 5522931342 [id number] Gurvinder Ascencionoemy [employer] [address] [address] 04/08/2025 10:17:05 04/08/2025 11:34:15 Hypertensive disorder 64634571 I10 [address] Correia will see pt tomorrow at 10 am- pt informed Vaccination declined 805 1744887 Z28.21 Seasonal flu vaccine offered and declined Health Concerns Section Related Observation LastModified by Organization Detai ls LastModified Time None Recorded Concern Status LastModified by Organization Details LastModified Time None Recorded Advance Directives Directive Y: Payers Insurance Date Sequence Insurance Name Policy Number Policy Sharpe Covered Member ID Sharpe Member ID Guarantor Name 04/05/2025 2 MEDICAID-[facility] CHOICES - FFS/TRADITIO NAL Clarke Peña [id number] Clarke Peña 04/05/2025 1 [employer] (MEDICARE REPLACEMENT/ ADVANTAGE - PPO) Clarke Peña [id number] Clarke Peña Notes Date Note Type Note Provider Name and Address Organization Details Recorded Time 5 text/html 74 year old male who presents to the office today for a follow up onhypertension--174/75 this AMshortness of breath when laying down x 3-4 months but getting worse this week, low hr in 40's this weekBarry states he feels the same way as when he had his heart attack in 2017, except this feels milder. pt states he is having a discomfort awareness in chest- no pain Gurvinder Dempsey, [employer] [facility] [address], [place], [address], [place] - [facility] 12/03/2024 15:55:21 5 text/html Emergency Department Follow-Up RecordReported by PatientEmergency Room Follow-Up RecordFor discharge information, patient reportsname of hospital/urgent care patient was seen: ([facility]),patient presented to hospital/urgent care on or around: actual date 12-03-2024,patient presented to hospital for treatment of: (shortness of breath, sent from primary physician office by ambulance to [facility]),treatment received by hospital/urgent care: (admitted, pacemaker placed),patient's condition has: improved, andhospital records available at the time of this visit: yes.ROS as noted in the HPI Clarke is a 74 year old male who presents to the office today for a hospital follow upfor shortness of breath. Patient was sent to the ER by ambulance from the office on 9-30-4250xii concerns of burning sensation in top of left shoulder, thinks it is where they placed pacemaker,also has concerns of neck pain when turning right and left. Gurvinder Dempsey, [employer] [facility] [address], [place], [address], [place] - [facility] 12/13/2024 11:36:07 5 text/html ROS as noted in the HPI 74 year old male who presents to the office today with concerns ofbilateral shoulder pain and neck in the middle back neck since pacemaker surgery- pt states asprin helpedlast 2 mornings have been worse, a lot of pain and unable to turn neck when waking upgets a little better as the day goes on, but constant pain and stiffness- since pace maker placement and hospital stayBP in office today 184/90 Gurvinder Dempsey, [employer] [facility] [address], [place], [address], [place] - [facility] 12/23/2024 17:05:05 5 text/html Medicare Annual Wellness VisitReported by PatientSocial/Behavioral HistoryFor diet and nutrition, patient reportsdiscussed portion controlanddiscussed diet improvement. For fracture risk, patient reportsno history of fractures,no recent explained fracture,no sudden unexplained fractures, andno previous musculoskeletal injuries. For physical activity, patient reportsdiscussed exercise habits.Mental Status:For depression risk, patient reportssleep disturbances or insomniabut reportsnever feels sad, empty, or tearful,no loss of interest in activities, andno significant changes in weight. For orientation, patient reportsno disorientation to time,no disorientation to date, andno disorientation to place. For concentration and memory, patient reportsno decreased concentrating ability,no memory lapses or loss, anddoes not forget words. For speech/motor difficulties, patient reportsno speech difficulties,no difficulty expressing formulated concepts,no difficulty with fine manipulative tasks,no difficulty writing/copying,no slowed reaction time, anddoes not knock things over when trying to pick them up.Functional AbilityFor hearing, patient reportsloss of hearing: in both earsbut reportswears hearing aids. For vision, patient reportsworsening. For activities of daily living, patient reportsable to bathe with limited or no assistance,able to contol urination and bowels,able to dress with limited or no assistance,able to feed self with limited or no assistance,able to get out of chair or bed with limited or no assistance,able to groom with limited or no assistance, andable to toilet with limited or no assistance. For instrumental activities of daily living, patient reportsable to do house work with limited or no assistance,able to grocery shop with limited or no assistance,able to manage medications with limited or no assistance,able to manage money with limited or no assistance,able to prepare meals with limited or no assistance, andable to use the phone with limited or no assistance. For falls risk assessment, patient reportsno frequent falls while walking,no fall in the past year,no fall since last visit, andno dizziness/vertigo. For home safety, patient reportsno unsafe allan hazzards,no unsafe stairs,no unsafe gas appliances,working smoke/co detectors,use of seatbelts,no vision or hearing loss while driving, andgood lighting in the home. For current level of pain, patient reportspain present(has intermittent neck pain). 74 yr old male presents for a medicare annual wellness exam. Gurvinder Dempsey APRN [address], [place], [address], [employer] - [facility] 01/27/2025 10:25:33 5 text/html ROS as noted in the HPI 74 year old male who presents to the office today for a follow up onhypertension-- 184/100 in the office todayneeds taught how to give himself Repatha injection- brought meds with himhard to hear on right ear, feels/hears buzzing in headpt states he thinks hearing problem on right side is due to continued neck pain he has had since pacemaker surgery in November Gurvinder Dempsey, MARY [address], [place], [address], [place] - [facility] 04/08/2025 13:51:22
--- OUTSIDE RECORDS SUMMARY | 2025-05-06 14:12 | XMS_ITS | Clinical Summary ---
Author Organization Healthcare Address [address] [id number] Care Team Providers Care Camp Nurse Name Role Phone Ugo Walker MD Primary Care Provider [phone] Family History Medical History Relation Name Comments [...] Vaccine s (1 - Tdap) 12/29/2018 12/28/2018 [id number] Vaccine (2 - 20 25-26 season) 2025 07/29/2020 [facility]-Influenza Vaccine (#1) 2025 [facility]-RSV Vaccine: 60+ Years o r (1 - 1-dose 75+ series) 2025 HPV Vaccines (No Doses Required) Completed [facility]-HIB Vaccines Aged Out No longer e [...] topic Insurance [place] HU[place]NA MEDICARE Care Teams Camp Nurse Relationship Specialty Start Date End Date Ugo Walker MD [address] [place] [address] PCP - General 10/02/20
--- OUTSIDE RECORDS SUMMARY | 2025-05-06 14:12 | XMS_ITS | Continuity of Care Document ---
Author Organization [facility] Address [address] [place] [address] Care Team Providers Care Waiter/Waitress Club Name Role Phone MESHA HALL Primary Care Provider GURVINDER CUELLAR Primary Care Provider Assessment No assessment recorded. Plan of Treatment Reminders Order Date Submit Date Provider Last Modified By Organization Details Last Modified Time Details Appointments None record ed. Lab None record ed. Referral None record ed. Procedures None record ed. Surgeries None record ed. Imaging None record ed. Medication Orders None record ed. Patient TargetsNo targets recorded. Patient InstructionsNo instructions recorded. Reason for Referral None Reported. Results Created Date Observation Date Name Description Value Unit Range Abnormal Flag Note LastModifiedBy Organization Detail LastModifiedTime Result Notes None recorded. Problems Name Problem SNOMED Code Status Onset Date Resolution Date Notes Provider Name and Address Organization Details Recorded Time Hypothyroidis m 15101786 Active Gloria Bates null, [place] - [facility] 2 10:42:56 Hypertensive disorder 18096832 Active [place] [facility] 2 10:43:07 Insomnia 676067048 Active [place] [facility] 2 10:43:22 Sleep apnea 80683037 Active [place] [facility] 2 10:44:51 Anxiety 67139450 Active [place] - [facility] 2 10:45:02 Cardiac pacemaker in situ 509184409 Active 2024 Gurvinder Cuellar, MARY [address], [place], [address] , [facility] - [facility] 5 11:35:11 Problem Notes None recorded. Procedures Surgical History Date Name Laterality Status Provider Name and Address Organization Details Recorded Time 01/28/20 Advance Care Planning completed Gloria Bates [place] - [facility] 01/27/2025 09:17:18 01/28/20 25 Functional Status Assessed completed Gloria Bates [place] - [facility] 01/27/2025 09:17:18 12/14/19 25 Medication Reconcilliation completed Priyanka Bais [place] - [facility] 12/13/2024 10:20:34 12/06/19 25 Pacemaker Placement completed Priyanka Bais [place] - [facility] 12/13/2024 10:25:22 12/04/19 25 IV Infusion completed Gloria Bates [place] - [facility] 12/03/2024 13:29:55 09/22/19 24 Advance Care Planning completed Gloria Bates [place] - [facility] 09/22/2023 09:10:48 09/22/19 24 Functional Status Assessed completed Gloria Bates [place] - [facility] 09/22/2023 09:10:48 05/04/20 22 Colonoscopy completed Priyanka Kohli [place] - [facility] 07/18/2022 14:42:58 10/06/19 17 [...] Name and Address Organization Details Recorded Time 487552 codeine medicatio n hallucina tions moderate high 03/25/2022 2670 RxNorm Gloria dowling, [place] - [facility] 10:36:28 708063 Paxil medicatio n confusion moderate high 03/25/2022 53210 8 RxNorm Gloria Bates null, [place] - [facility] 2 10:36:57 456424 Product containin g 3-hydroxy -3-methyl glutaryl- coenzyme A reductase inhibitor (product) medicatio n insomnia severe high 03/25/2022 44422 009 SNOMED Gloria Bates null, [place] - [facility] 2 10:37:27 Medications Name Sig [...] Available No t Available Vitals Date Recorded Body height Body mass index (BMI) Body weight Heart rate Oxygen saturation Body temperature Respiratory rate Systolic And Diastolic Provider Name and Address Organization Details Last Updated DateTime 5 172.72 cm 23.9 kg/m2 17827 g 60 /min 98 % 97.9 [degF] 18 /min 184/100 mm[Hg] Priyanka Stears [place] - [facility] 5 10:37:10 Social History Question Answer Notes LastModified by Organizat ion Details LastModified Time Tobacco Smoking Status Former Smoker Gloria Bates null, [place] - [facility] 03/25/2022 10:46:40 Do You Have An Advance [...] Or The Highest Degree You Have Received? [id number] Information not available 03/25/2022 Have There Been Any Changes To Your Family Or Social Situation? No Information no t available 03/25/2022 What Is The Fluoride Status Of Your Home? Fluoridated Information not available 03/25/2022 When Did You Quit Smoking? 16+yearsvijay munoz Information not available 03/25/2022 Have You Recently Or Are You Planning To Travel To An Area With Zika Virus? No Information not available 03/25/2022 Do You Have A Medical Power Of Aws Architect? No Information not available 03/25/2022 What Was [...] anxious, or unable to sleep at night)? [id number] Information not available 03/25/2022 Do you have difficulty concentrating, remembering or making decisions? No Information no t available 03/25/2022 Family History Nothing Reported Notes:patient was adopted an d he doesn't know the history Medical History No medical history recorded. Immunizations Vaccine Type Date Status Note Provider Name and Address Organization Details Recorded Time Pneumococcal conjugate PCV20, polysaccharide DBF064 conjugate, adjuvant, PF 024 cancelled patient objection Gurvidner Cuellar APRN [address], [address], [place] - [facility] 09/22/2023 10:01:25 zoster recombinant 024 cancelled patient objection Gurvinder Cuellar APRN [address] [place], [address] [place] [address], [place] - [facility] 09/22/2023 10:01:25 zoster recombinant 025 cancelled patient objection Gurvinder Cuellar APRN [address] [place], [address], [place] - [facility] 01/27/2025 10:25:07 Influenza, split virus, trivalent, preservative 025 cancelled patient objection Gurvinder Cuellar APRN [address] [place], [address], [place] - [facility] 01/27/2025 10:25:07 Td (adult) 019 completed Gloria dowling, [place] - [facility] 04/05/2022 10:02:15 COVID-19 vaccine, vector-nr, rS-Ad26, PF, 0.5 mL 021 completed Gloria Bates null, [place] - [facility] 04/05/2022 10:02:15 Past Encounters Encounter ID Performer Location Encounter Start Date Encounter Closed Date Diagnosis/Indication Diagnosis SNOMED-CT Code Diagnosis ICD10 Code Diagnosis IMO Codes Diagnosis Note [id number] Gurvinder Cuellar APRN [address] [address] 04/08/2025 10:17:05 04/08/2025 11:34:15 Hypertensive disorder 34677984 I10 [address] Correia will see pt tomorrow at 10 am- pt informed Vaccination declined 614 [id number] Z28.21 Seasonal flu vaccine offered and declined Health Concerns Section Related Observation LastModified by Organization Detai ls LastModified Time None Recorded Concern Status LastModified by Organization Details LastModified Time None Recorded Payers Encounter Date Sequence Insurance Name Policy Number Policy Sharpe Covered Member ID Sharpe Member ID Guarantor Name 04/08/2025 1 [employer] (MEDICARE REPLACEMENT/ ADVANTAGE - PPO) Clarke Peña [id number] Clarke Peña 04/08/2025 2 [place] [employer] [place] [employer] - FFS/TRADITIO NAL Clarke Peña [id number] Clarke Peña Notes Date Note Type Note Provider Name and Address Organization Details Recorded Time 04/08/2025 text/html ROS as noted in the HPI [...] had since pacemaker surgery in November Gurvinder Cuellar APRN [address], [place], [address], [place] - [facility] 04/08/2025 13:51:22
[2025-05-06 14:35] LABS: Hematocrit 46.5 % (42.0-52.0); Hemoglobin 16.0 g/dL (14.1-18.0); Immature Granulocytes % 0.5 %; Mean Corpuscular HGB Conc 34.4 g/dL (31.8-35.4); Mean Corpuscular Hemoglobin 29.5 pg (27.0-31.2); Mean Corpuscular Volume 85.8 fl (80-94); Nucleated Red Blood Cells % 0 %; Platelet Count 299 K/mm3 (142-424); Red Blood Count 5.42 M/mm3 (4.60-6.20); Red Cell Distribution Width-SD 39.8 fL; White Blood Count 9.2 K/mm3 (4.8-10.8)
[2025-05-06 15:36] LABS: Alanine Aminotransferase 23 U/L (12-78); Albumin Level 4.4 g/dl (3.5-5.0); Alkaline Phosphatase 84 U/L (38-126); Anion Gap 13.0 mEq/L (5-15); Aspartate Amino Transferase 25 U/L (17-59); Bilirubin,Direct 0.2 mg/dl (0.0-0.4); Bilirubin,Indirect 0.5 mg/dL (0.0-0.9); Bilirubin,Total 0.7 mg/dl (0.2-1.3); Bilirubin,Unconjugated 0.4 mg/dL (0.0-1.1); Blood Urea Nitrogen 28 mg/dl (9-20); Carbon Dioxide 27 mmol/L (22.0-30.0); Chloride 100 mmol/L (98-107); Cholesterol 187 mg/dl (140-200); Creatinine,Serum 1.40 mg/dl (0.66-1.25); Estimated Glomerular Filt Rate 50 ml/min (>60); GFR (African American) 60 ML/MIN (>60); HDL Cholesterol 54 mg/dl (40-60); Magnesium 1.8 mg/dl (1.6-2.3); Potassium 4.0 mmoL/L (3.5-5.1); Sodium 136 mmol/L (136-145); Total Protein,Serum 7.1 g/dl (6.3-8.2); Triglycerides 253 mg/dl (30-150)
[2025-05-06 15:52] LABS: Free T4 (Free Thyroxine) 1.72 ng/dl (0.78-2.19)
[2025-05-06 16:23] LABS: Calcium 9.7 mg/dl (8.4-10.2); Glucose 98 mg/dl (74-100)
[2025-05-06 16:54] LABS: Thyroid Stimulating Hormone 1.13 uIU/mL (0.465-4.68)
== END 2025-05-06 23:59 | disposition home or self-care (01) ==
PROVIDERS: PCP Nurse Practitioner Family; Visit Provider Physician Assistant
DX: I25.10 Atherosclerotic heart disease of native coronary artery without angina pectoris (principal); E78.49 Other hyperlipidemia; I11.9 Hypertensive heart disease without heart failure
CPT/HCPCS: 36415; 80048; 80061; 80076; 83735; 84439; 84443; 85025